=== PATIENT | female | born 1965 | race Caucasian/White ===

== ENCOUNTER → 2017-09-15 | Outpatient (REF) ==
[~2017-09-15] MED LIST: ALBU17IN2 INH; BABY81CH PO; BENI20TA11 PO; CALC1CAP31 PO; CRES20TA PO; DARV100T PO; DRIS50002 PO; DRISDOL PO; JANU25TA PO; KLOR10TA PO; KLOR1TAB77 PO; LASI20TA PO; LEVO50TA45 PO; LEVOXYL25 MCG PO; LIDO5DIS TD; LORA10TA2 PO; MICA80TA OR; MULTIVIT PO; NEXI20CA PO; PRIL20CA PO; SIMV40TA2 OR; SKEL800T5 PO; SPIR25TA2 OR; SPIR50TA2 PO; TORS100T PO; VERA240T11 PO; VIT D 2000 OR; VITA200C PO; VITAPRTA PO; ZOLO100T PO; ZYLO300T PO; [UNRECOGNIZED DRUG - OTHER] OP
--- NOTE | 2017-09-15 18:18 | REP ---
Clinical: Pain and disability. Technique: AP, lateral, bilateral oblique and sunrise views of the right knee. Findings: Severe tricompartmental osteoarthritic degenerative changes are appreciated. Findings include osteophytosis, subchondral sclerosis, joint space narrowing, calcified loose bodies, and mild medial subluxation of the femur in relation to the tibial plateau. No acute fracture dislocation. No definite effusion. Impression: Severe tricompartmental osteoarthritic degenerative changes. Signed by Adeel Mcguire MD 09/15/2017 03:09 P
== END ==
LOC: M SMT 13:33
PROVIDERS: ATTEND Internal Medicine
DX: Z02.9 Encounter for administrative examinations, unspecified (principal)

== ENCOUNTER 2018-07-08 12:25 | Emergency (ER) | payer OTHER ==
[2018-07-08] MEDS: NS 1,000 ML IV (13:31)
[2018-07-08 13:39] LABS: KETONE, URINE AUTO RFX NEGATIVE (NEGATIVE); LEUKOCYTE ESTERASE UR AUTO RFX NEGATIVE (NEGATIVE); NITRITE, URINE AUTO RFX NEGATIVE (NEGATIVE); RBC, URINE AUTO RFX 4 /HPF (0-3); SPECIFIC GRAVITY UR AUTO RFX 1.011 (1.002-1.035); SQUAM EPITHELIAL CELL UR AURFX 2 /HPF (0-6); WBC, URINE AUTO RFX 2 /HPF (0-3)
[2018-07-08 13:47] LABS: BASO # 0.1 10^3/uL (0.0-0.2); BASO % 0.4 % (0.0-1.0); EOS # 0.1 10^3/uL (0.0-0.50); EOS % 0.9 % (0.0-3.0); HEMATOCRIT 47.1 % (36.0-47.0); HEMOGLOBIN 16.2 g/dl (12.0-15.5); IMMATURE GRANULOCYTE % 0.4 % (0-3.0); LYMPH % 14.3 % (24.0-44.0); MEAN CORPUSCULAR HEMOGLOBIN 33.1 pg (27.0-33.0); MEAN CORPUSCULAR HGB CONC 34.4 g/dl (32.0-36.5); MEAN CORPUSCULAR VOLUME 96.3 fl (80.0-96.0); MONO # 0.9 10^3/uL (0.0-0.8); MONO % 6.2 % (0.0-5.0); NEUTROPHILS # 10.6 10^3/uL (1.8-7.7); NEUTROPHILS % 77.8 % (36.0-66.0); PLATELET COUNT, AUTOMATED 266 10^3/uL (150-450); RED BLOOD COUNT 4.89 10^6/uL (4.00-5.40); RED CELL DISTRIBUTION WIDTH 13.7 % (11.5-14.5); WHITE BLOOD COUNT 13.6 10^3/uL (4.0-10.0)
[2018-07-08 14:09] LABS: LACTIC ACID SEPSIS PROTOCOL 1.1 MMOL/L (0.4-2.0)
[2018-07-08 14:09] LABS: ALBUMIN 3.4 GM/DL (3.2-5.2); ALBUMIN/GLOBULIN RATIO 0.77 (1.00-1.93); ALKALINE PHOSPHATASE 106 U/L (45-117); ALT/SGPT 31 U/L (12-78); ANION GAP 11 MEQ/L (8-16); AST/SGOT 24 U/L (7-37); BILIRUBIN,DIRECT 0.1 MG/DL (0.0-0.2); BILIRUBIN,TOTAL 0.4 MG/DL (0.2-1.0); BLOOD UREA NITROGEN 24 MG/DL (7-18); CARBON DIOXIDE LEVEL 25 MEQ/L (21-32); CHLORIDE LEVEL 99 MEQ/L (98-107); CREATININE FOR GFR 1.88 MG/DL (0.55-1.30); GLUCOSE, FASTING 120 MG/DL (70-100); LIPASE 554 U/L (73-393); POTASSIUM SERUM 4.2 MEQ/L (3.5-5.1); SODIUM LEVEL 135 MEQ/L (136-145); TOTAL PROTEIN 7.8 GM/DL (6.4-8.2)
== END 2018-07-08 15:27 | disposition home or self-care (01) ==
LOC: M ED 12:25
DX: R53.1 Weakness (principal); N18.9 Chronic kidney disease, unspecified; I12.9 Hypertensive chronic kidney disease with stage 1 through stage 4 chronic kidney disease, or unspecified chronic kidney disease; E11.9 Type 2 diabetes mellitus without complications; H81.49 Vertigo of central origin, unspecified ear; F17.200 Nicotine dependence, unspecified, uncomplicated; Z88.0 Allergy status to penicillin; Z88.5 Allergy status to narcotic agent; Z88.1 Allergy status to other antibiotic agents; Z88.2 Allergy status to sulfonamides; Z91.018 Allergy to other foods; Z91.048 Other nonmedicinal substance allergy status; Z79.899 Other long term (current) drug therapy; Z79.82 Long term (current) use of aspirin
CPT/HCPCS: 71045

== ENCOUNTER 2018-07-18 08:22 | Emergency (ER) | payer OTHER ==
[2018-07-18 08:59] LABS: KETONE, URINE AUTO RFX NEGATIVE (NEGATIVE); NITRITE, URINE AUTO RFX NEGATIVE (NEGATIVE); RBC, URINE AUTO RFX TNTC /HPF (0-3); SPECIFIC GRAVITY UR AUTO RFX 1.013 (1.002-1.035); SQUAM EPITHELIAL CELL UR AURFX 0 /HPF (0-6)
[2018-07-18 09:21] LABS: LEUKOCYTE ESTERASE UR AUTO RFX 1+ (NEGATIVE); WBC, URINE AUTO RFX TNTC /HPF (0-3)
== END 2018-07-18 09:42 | disposition home or self-care (01) ==
LOC: M ED 08:22
DX: N30.01 Acute cystitis with hematuria (principal); I10 Essential (primary) hypertension; F17.210 Nicotine dependence, cigarettes, uncomplicated; Z88.1 Allergy status to other antibiotic agents; Z88.5 Allergy status to narcotic agent; Z88.2 Allergy status to sulfonamides; Z91.018 Allergy to other foods; Z91.048 Other nonmedicinal substance allergy status; Z79.899 Other long term (current) drug therapy; Z79.82 Long term (current) use of aspirin
CPT/HCPCS: 81001

== ENCOUNTER 2018-08-24 08:24 | Emergency (ER) | payer OTHER | END 2018-08-24 10:12 | disposition home or self-care (01) | LOC: M ED 08:24 | DX: M76.21 Iliac crest spur, right hip (principal); E11.9 Type 2 diabetes mellitus without complications; I12.9 Hypertensive chronic kidney disease with stage 1 through stage 4 chronic kidney disease, or unspecified chronic kidney disease; E78.5 Hyperlipidemia, unspecified; J44.9 Chronic obstructive pulmonary disease, unspecified; J45.909 Unspecified asthma, uncomplicated; K21.9 Gastro-esophageal reflux disease without esophagitis; E03.9 Hypothyroidism, unspecified; F32.9 Major depressive disorder, single episode, unspecified; N18.3 Chronic kidney disease, stage 3 (moderate); F17.200 Nicotine dependence, unspecified, uncomplicated; Z88.1 Allergy status to other antibiotic agents; Z88.5 Allergy status to narcotic agent; Z88.2 Allergy status to sulfonamides; Z91.048 Other nonmedicinal substance allergy status; Z91.018 Allergy to other foods; Z79.899 Other long term (current) drug therapy; Z79.82 Long term (current) use of aspirin | CPT/HCPCS: 73502 ==

== ENCOUNTER → 2018-12-12 | Outpatient (REF) | payer OTHER ==
[~2018-12-12] MED LIST changes: +BYDU1INJ; +CALC1CAP31; +CETI10TA; +CINA30TA; +DIFL150T PO; -DRIS50002 PO; +DRIS50003 PO; +GABA-1171; +LIDO1PAD; -LORA10TA2 PO; +LORA10TA3 PO; +MACR100C43 PO; +MAGN400T2; +MONT10TA2; +NORCOTAB PO; +OLOP0.1D; +OMEP20CA3; +PROAAER10; +SITA50TAB; -SPIR50TA2 PO; +SPIR50TA4 PO; +TIZA4CAP PO
[2018-12-12 13:45] LABS: URINE TOTAL PROTEIN 79.4 MG/DL (0-12)
[2018-12-15 13:18] LABS: UPEP INTERPRETATION NO M-SPIKE NOTED; URINE VOLUME RANDOM ML
[2018-12-16 00:09] LABS: ANCA-ATYPICAL <1:20 titer (Neg:<1:20); CYTOPLASMIC NEUTROP AB ANCA-C <1:20 titer (Neg:<1:20); PERINUCLEAR AB ANCA-P <1:20 titer (Neg:<1:20)
== END ==
LOC: M LAB REF 13:06
PROVIDERS: ATTEND Internal Medicine Nephrology
DX: R80.9 Proteinuria, unspecified (principal); N18.3 Chronic kidney disease, stage 3 (moderate)

== ENCOUNTER 2019-02-13 15:22 | Emergency (ER) | payer OTHER ==
[~2019-02-13] VITALS: Ht 154.9 cm; Wt 95.5 kg
[~2019-02-13 15:22] MED LIST changes: -CINA30TA; +CINA30TA4; -CRES20TA PO; +CRES20TA2 PO; +HYDR-3715 PO; -NORCOTAB PO
[2019-02-13] MEDS ORDERED: diazePAM 5 MG TAB PO ONE (18:15)
[2019-02-13] MEDS ORDERED: NORCO, ANEXSIA 5/325MG TABLET (HYDROcodone/ACETAMINOPHEN) PO ONE (18:15)
[2019-02-13] MEDS ORDERED: dexameTHASONE 20 MG/5 ML VIAL (J1100) IM ONE (18:15)
[2019-02-13] MEDS ORDERED: LIDOCAINE 5% (LIDODERM) PATCH TD ONE (18:15)
--- NOTE | 2019-02-13 19:34 | REP ---
LUMBOSACRAL SPINE WITH BENDING VIEWS: Seven views of the lumbosacral spine are performed with flexion and extension lateral views also obtained. There is no compression fracture. There is mild fixed anterior listhesis of L3 and L4 unchanged since prior CT of 07/08/2018. There is mild diffuse spurring. There is moderate disc space narrowing and subchondral sclerosis at all levels. There is diffuse sclerosis and spurring at the posterior facet joints. The posterior elements are intact. Large spurs are seen on the left bridging at L1 and L2. IMPRESSION: Degenerative changes as above. No compression fracture. Mild fixed anterior listhesis of L3 on L4 unchanged since 07/08/2018. Electronically Signed by Juni Art MD 02/13/2019 08:00 P
--- NOTE | 2019-02-13 19:35 | REP ---
SACROILIAC JOINTS: Multiple views of the sacroiliac joints are performed. No fracture or dislocation is seen. There is mild diffuse joint space narrowing and subchondral sclerosis bilaterally. IMPRESSION: Mild degenerative changes without fracture or dislocation. Electronically Signed by Juni Art MD 02/13/2019 08:02 P
[2019-02-13] MEDS ORDERED: MEDR4PAK PO (19:57)
[2019-02-13] MEDS ORDERED: VALI5TAB PO (19:57)
[2019-02-13 20:12] VITALS: BP 140/80
== END 2019-02-13 20:14 | disposition home or self-care (01) ==
LOC: M ED 15:22
DX: M51.36 Other intervertebral disc degeneration, lumbar region (principal); M53.3 Sacrococcygeal disorders, not elsewhere classified; M62.830 Muscle spasm of back; I10 Essential (primary) hypertension; E78.00 Pure hypercholesterolemia, unspecified; Z72.0 Tobacco use; Z79.82 Long term (current) use of aspirin; Z88.2 Allergy status to sulfonamides; Z88.0 Allergy status to penicillin; Z88.1 Allergy status to other antibiotic agents; Z88.8 Allergy status to other drugs, medicaments and biological substances; Z91.018 Allergy to other foods; Z91.89 Other specified personal risk factors, not elsewhere classified
CPT/HCPCS: 72114; 72202; 96372; 99283; J1100

== ENCOUNTER 2019-04-21 16:10 | Emergency (ER) | payer OTHER ==
[~2019-04-21] VITALS: Ht 154.9 cm; Wt 94.5 kg
[~2019-04-21 16:10] MED LIST changes: +MEDR4PAK PO; -OMEP20CA3; +OMEP20CA4; +VALI5TAB PO
--- NOTE | 2019-04-21 17:11 | REP ---
LEFT LOWER LEG: AP and lateral views of the left lower leg are performed. There is no acute fracture or dislocation. There is fairly severe degenerative change at the knee joint with severe medial joint space narrowing and subchondral sclerosis with diffuse moderate spurring. There is significant narrowing and spurring at the patellofemoral joint. There is a small effusion in the suprapatellar region. IMPRESSION: No acute fracture or dislocation. Degenerative changes of the knee. Electronically Signed by Juni Art MD 04/25/2019 05:41 P
[2019-04-21 19:59] VITALS: BP 144/99
== END 2019-04-21 20:02 | disposition home or self-care (01) ==
LOC: M ED 16:10
DX: M79.662 Pain in left lower leg (principal); M25.762 Osteophyte, left knee; E11.9 Type 2 diabetes mellitus without complications; I10 Essential (primary) hypertension; E78.5 Hyperlipidemia, unspecified; E03.9 Hypothyroidism, unspecified; J45.909 Unspecified asthma, uncomplicated; K21.9 Gastro-esophageal reflux disease without esophagitis; Z72.0 Tobacco use; Z79.82 Long term (current) use of aspirin; Z79.899 Other long term (current) drug therapy; Z88.2 Allergy status to sulfonamides; Z88.0 Allergy status to penicillin; Z88.1 Allergy status to other antibiotic agents; Z88.5 Allergy status to narcotic agent; Z91.89 Other specified personal risk factors, not elsewhere classified; Z91.018 Allergy to other foods

== ENCOUNTER → 2019-05-05 | Outpatient (CLI) | payer OTHER ==
[~2019-05-05] MED LIST changes: +ALLO100T PO; +ECOT81TA5 PO; +GASTROGRAFIN SOLUTION 30ML (Q9963) As Ordered ONE; +K-TA10TA PO; +OMEP1CAP73; -OMEP20CA4; +PRENMIS3 PO; +TORS20TA2 PO; +VERA24TASA PO
--- NOTE | 2019-05-05 16:57 | REP ---
CT abdomen pelvis with oral contrast only: 05/05/2019. Electronically Signed by Jhon Salazar MD 05/05/2019 04:49 P
--- NOTE | 2019-05-06 09:59 | REP ---
CT CHEST WITHOUT CONTRAST: 05/05/2019. COMPARISON: AP portable chest 07/08/2018. CLINICAL HISTORY: Elevated WBC, hypercalcemia, abnormal weight loss. FINDINGS: Noncontrast images with coronal and sagittal reconstructions provided. The lung cruran are well inflated. There is no pleural thickening, calcified pleural plaque, pleural-based mass, parenchymal mass, acute infiltrate, definite pulmonary nodule or atelectasis. There is no pneumothorax or pneumomediastinum. Heart is not enlarged. There is no pericardial thickening or effusion and no hiatal hernia. Some coronary calcifications are noted as well as a few calcifications at the aortic root, arch and without aneurysm. No pathologic sized mediastinal, hilar, axillary or supraclavicular adenopathy visible. The sternum, manubrium, medial clavicles, visualized portions of scapulae, humeral heads are without fracture and some mild degenerative changes at the shoulders. Visualized ribs without fracture or focal lesion. There are marginal osteophytes throughout the thoracic spine but no compression deformity or destructive lesion. In the upper abdomen that portion of liver and spleen included are without acute finding. Gallbladder shows some layering sludge but no some calcified stone or mass. Pancreas portion visualized is unremarkable. The adrenal glands show slight thickening of limbs that may reflect adrenal hyperplasia. No discrete nodule or mass. Upper pole of the left kidney slight lobulation that may reflect some old scarring. Right kidney upper pole unremarkable. Stomach with oral contrast from the abdomen CT, please see that report. IMPRESSION: 1. Lung curran are clear. The heart not enlarged and the mediastinum without mass, pathologic sized adenopathy or aortic aneurysm. 2. Bones show some degenerative changes throughout the thoracic spine without compression deformity, destructive lesion. Electronically Signed by Jhon Salazar MD 05/06/2019 10:13 A
== END ==
LOC: M RAD 13:24
PROVIDERS: ATTEND Nurse Practitioner Family
DX: D72.829 Elevated white blood cell count, unspecified (principal); E83.52 Hypercalcemia; R63.4 Abnormal weight loss
CPT/HCPCS: 71250; 74176; Q9963

== ENCOUNTER → 2019-08-01 | Outpatient (CLI) | payer OTHER ==
[~2019-08-01] MED LIST changes: -ALLO100T PO; -ECOT81TA5 PO; -GASTROGRAFIN SOLUTION 30ML (Q9963) As Ordered ONE; -K-TA10TA PO; -OMEP1CAP73; +OMEP20CA4; -PRENMIS3 PO; -TORS20TA2 PO; -VERA24TASA PO
--- NOTE | 2019-08-01 11:09 | REP ---
BILATERAL SCREENING DIGITAL MAMMOGRAM WITHOUT 3D TOMOSYNTHESIS: There are no palpable abnormalities or other breast complaints. The the patient states she had a clinical breast examination in November. The the patient states she performs self-breast examinations 12 times per year. The Tyrer-Cuzick Score is: 17.3% . Comparison is an outside study dated 05/31/2015. There are scattered areas of fibroglandular density. There is no dominant mass, micro calcific cluster or architectural distortion that would indicate malignancy. There are numerous benign calcifications, unchanged. There is no change from the prior study. Impression: BIRADS/ACR category 2 mammogram. Benign findings. Recommendation: Routine annual screening mammography. This mammogram was interpreted with the aid of a FDA approved computer-aided detection system. A. Negative mammogram reports should not delay biopsy if a dominant or clinically suspicious mass is present. B. Not all breast cancers are identified by mammography or tomosynthesis. C. Adenosis and dense breasts may obscure an underlying neoplasm. Patient letter M1. Electronically Signed by Juni Houser MD 08/01/2019 11:00 A
== END ==
LOC: M WHC 08:39
PROVIDERS: ATTEND Family Medicine
DX: Z12.31 Encounter for screening mammogram for malignant neoplasm of breast (principal)
CPT/HCPCS: 77067; G0463

== ENCOUNTER → 2019-12-04 | Outpatient (CLI) | payer OTHER ==
[~2019-12-04] MED LIST changes: +ALLO100T PO; +ECOT81TA5 PO; +K-TA10TA PO; -MONT10TA2; +MONT10TA4; +OMEP1CAP73; -OMEP20CA4; +PRENMIS3 PO; +TORS20TA2 PO; +VERA24TASA PO
--- NOTE | 2019-12-04 16:38 | REPVR ---
PROCEDURE INFORMATION: Exam: CT Head Without Contrast Exam date and time: 12/04/2019 4:21 PM Age: 54 years old Clinical indication: Dizziness; Additional info: HX of dizziness TECHNIQUE: Imaging protocol: Computed tomography of the head without contrast. Radiation optimization: All CT scans at this facility use at least one of these dose optimization techniques: automated exposure control; mA and/or kV adjustment per patient size (includes targeted exams where dose is matched to clinical indication); or iterative reconstruction. COMPARISON: CT Head without contrast 07/08/2018 1:35 PM FINDINGS: Brain: There is no acute intracranial hemorrhage or abnormal extra-axial fluid collection identified. There is no intracranial mass effect or shift of midline structures. The salamanca-white differentiation is preserved throughout. Ventricles: There is no sulcal or ventricular effacement. The basilar cisterns are open. No hydrocephalus. Bones/joints: No calvarial fracture or destructive osseous lesions are seen. Sinuses: Visualized sinuses are unremarkable. No fluid levels. Mastoid air cells: Visualized mastoid air cells are well aerated. IMPRESSION: No acute intracranial pathology identified by CT. Electronically signed by: Sarai Garcia On 12/04/2019 16:38:40 PM
== END ==
LOC: M RAD 15:57
PROVIDERS: ATTEND Internal Medicine Hematology & Oncology
DX: R42 Dizziness and giddiness (principal)

== ENCOUNTER → 2020-03-27 | Outpatient (CLI) | payer OTHER ==
[~2020-03-27] MED LIST changes: -BYDU1INJ; +BYDU1INJ IM; -CETI10TA; +CETI10TA PO; -CINA30TA4; +CINA30TA4 PO; -GABA-1171; +GABA-1171 PO; -LIDO1PAD; +LIDO1PAD TOP; -MAGN400T2; +MAGN400T2 PO; -MONT10TA4; +MONT10TA4 PO; -OMEP1CAP73; +OMEP1CAP73 PO; -SITA50TAB; +SITA50TAB PO
--- NOTE | 2020-03-27 12:57 | REP ---
Clinical: Follow up abnormal lung findings. Comparison: 05/15/2019. Technique: Axial noncontrast images from the thoracic inlet to the upper abdomen with coronal and sagittal re-formations. Findings: The bilateral lung curran are well-aerated and essentially clear. No consolidation, significant nodule, or mass. No pleural effusion. No pneumothorax. No adenopathy. Tracheobronchial tree is patent. Mediastinum demonstrates atherosclerotic changes to the thoracic aorta and coronary arteries without aortic aneurysm or cardiomegaly. No pericardial effusion. Musculoskeletal structures demonstrate age-related changes without acute abnormality. Impression: No acute mediastinal or pleuroparenchymal process appreciated. Electronically Signed by Adeel Mcguire MD 03/27/2020 12:49 P
== END ==
LOC: M RAD 12:05
PROVIDERS: ATTEND Physician Assistant
DX: R91.8 Other nonspecific abnormal finding of lung field (principal); I70.0 Atherosclerosis of aorta; I25.10 Atherosclerotic heart disease of native coronary artery without angina pectoris

== ENCOUNTER → 2020-05-06 | Outpatient (REF) | payer OTHER ==
[2020-06-19 16:30] LABS: FREE T4 1.04 NG/DL (0.76-1.46); THYROID STIMULATING HORMONE 1.59 uIU/ML (0.358-3.740)
== END ==
LOC: M LAB REF 12:54
PROVIDERS: ATTEND Nurse Practitioner Family
DX: E03.9 Hypothyroidism, unspecified (principal)

== ENCOUNTER → 2020-05-08 | Outpatient (REF) | payer OTHER ==
[2020-06-23 10:45] LABS: TOTAL PROTEIN 24 HOUR URINE 2494.2 MG/24HR (50-150); URINE TOTAL PROTEIN 90.7 MG/DL (0-12)
== END ==
LOC: M LAB REF 10:50
PROVIDERS: ATTEND Nurse Practitioner Family
DX: R80.9 Proteinuria, unspecified (principal)

== ENCOUNTER → 2020-05-19 | Outpatient (CLI) | payer OTHER ==
--- NOTE | 2020-06-20 10:31 | REP ---
LEFT HIP: 2-VIEWS HISTORY: Pain in the left hip. Injury in a fall down stairs the previous day. FINDINGS: AP and frog leg views of the left hip demonstrate smooth rounded femoral head and intact hip joint space. No fracture is seen. The visualized left hemipelvis is intact. Mild vascular calcification is noted. Periarticular soft tissues are unremarkable. IMPRESSION: No fracture seen. MTDD
--- NOTE | 2020-06-20 10:32 | REP ---
LEFT KNEE SERIES: 5-VIEWS HISTORY: Pain on day after a fall down stairs. FINDINGS: Five views of the left knee show severe three-compartment osteoarthritis of the knee with joint space narrowing in the medial and lateral tibial femoral compartments, as well as the patellofemoral compartment. No fracture is seen. There is fullness in the suprapatellar bursa indicative of a joint effusion, which is fairly large. There is evidence of a fabella posteriorly. There may also be an intraarticular loose body posteriorly on the lateral film. This is not an acute fracture fragment. These findings are unchanged from prior tib-fib series on the left dated 04/21/2019. IMPRESSION: Advanced three-compartment osteoarthritis. Large joint effusion. No fracture seen. Possible loose body. MTDD
--- NOTE | 2020-06-20 10:33 | REP ---
LEFT FOOT: 4-VIEWS HISTORY: Pain after a fall. FINDINGS: Four views of the left foot demonstrate overall normal mineralization. There is moderate mid-foot osteoarthritis spurring. Heel spurs are noted. No erosive change is seen. No fracture is noted. There is some soft tissue swelling about the fifth metatarsal. IMPRESSION: No acute fracture. Moderate mid-foot spurring. Heel spurs. MTDD
--- NOTE | 2020-06-20 10:33 | REP ---
LEFT ANKLE SERIES: 4-VIEWS HISTORY: Pain after a fall down stairs. FINDINGS: 4-views of the left ankle demonstrate vascular calcification. There are Achilles and plantar calcaneal spurring. There is tibiotalar osteoarthritic spurring and there is moderate mid-foot spurring. No fracture or subluxation is seen. IMPRESSION: Moderate osteoarthritis and heel spurring. Vascular calcification. No fracture or acute bony abnormality. MTDD
== END ==
LOC: M WUC 11:18
PROVIDERS: ATTEND Nurse Practitioner Family
DX: M25.552 Pain in left hip (principal); M17.12 Unilateral primary osteoarthritis, left knee; M25.572 Pain in left ankle and joints of left foot; M77.32 Calcaneal spur, left foot

== ENCOUNTER → 2020-05-27 | Outpatient (CLI) | payer OTHER ==
--- NOTE | 2020-06-24 07:52 | REP ---
RIGHT SCAPULA CLINICAL: Trauma. Fall. TECHNIQUE: AP and lateral views of the scapula. FINDINGS: Degenerative changes at the right shoulder include sclerosis to the glenoid and humeral head with joint space narrowing. Subtle bulky spurring along the inferior margin of the humeral head and possible inferior loose body suggested. There is no evidence for acute scapular fracture. IMPRESSION: Degenerative changes of the right shoulder. No obvious acute scapular fracture. If the patient remains symptomatic, consider CT or MRI for further investigation. KISHA
== END ==
LOC: M WUC 13:29
PROVIDERS: ATTEND Physician Assistant
DX: M19.011 Primary osteoarthritis, right shoulder (principal)

== ENCOUNTER → 2020-06-27 | Outpatient (CLI) | payer OTHER ==
[2020-06-27 16:30] LABS: C REACTIVE PROTEIN QUANTITATIV 0.35 MG/DL (0.00-0.30); RHEUMATOID FACTOR QUANT < 10.0 IU/ML (<15.0)
[2020-07-04 18:08] LABS: ANTINUCLEAR ANTIBODIES DIRECT Negative (Negative); HLA-B27 Positive (.)
== END ==
LOC: M WUC 11:17
PROVIDERS: ATTEND Physician Assistant
DX: M50.33 Other cervical disc degeneration, cervicothoracic region (principal)

== ENCOUNTER 2020-08-13 10:29 | Emergency (ER) | payer OTHER ==
[~2020-08-13] VITALS: Ht 154.9 cm; Wt 95.4 kg
[2020-08-13 11:37] LABS: BASO # 0.1 10^3/uL (0.0-0.2); BASO % 0.3 % (0.0-1.0); EOS # 0.2 10^3/uL (0.0-0.5); EOS % 1.5 % (0.0-3.0); HEMATOCRIT 43.7 % (36.0-47.0); HEMOGLOBIN 14.8 g/dl (12.0-15.5); LYMPH # 2.4 10^3/uL (1.5-5.0); LYMPH % 15.6 % (24.0-44.0); MEAN CORPUSCULAR HEMOGLOBIN 33.2 pg (27.0-33.0); MEAN CORPUSCULAR HGB CONC 33.9 g/dl (32.0-36.5); MONO % 6.6 % (0.0-5.0); NEUTROPHILS # 11.8 10^3/uL (1.5-8.5); NEUTROPHILS % 75.4 % (36.0-66.0); PLATELET COUNT, AUTOMATED 287 10^3/uL (150-450); RED BLOOD COUNT 4.46 10^6/uL (4.00-5.40); WHITE BLOOD COUNT 15.6 10^3/uL (4.0-10.0)
--- NOTE | 2020-08-13 12:18 | REP ---
INDICATION: LLQ pain, h/o diverticulitis, unable to get IV constrast COMPARISON: 05/05/2019. TECHNIQUE: CT Scan of the abdomen and pelvis was performed without intravenous contrast. Sagittal and coronal reconstruction images performed. FINDINGS: Lung bases: Unremarkable. Liver: Grossly unremarkable. Gallbladder: Unremarkable. Spleen: Grossly unremarkable.. Adrenals: There is stable adrenal gland thickening bilaterally. Pancreas: Grossly unremarkable.. Kidneys: No hydronephrosis or nephrolithiasis. Ureters demonstrate no dilatation or calculus. Small and large bowel: Grossly unremarkable.. Free fluid: None. Abdominal aorta: No aneurysm. Adenopathy: None. Appendix: Not inflamed. Osseous structures: There are degenerative changes of the spine without compression deformity. Pelvis: No mass. No bladder calculus seen. There has been a prior hysterectomy. IMPRESSION: No acute abnormalities identified. <Electronically signed by Juni Art > 08/13/20 [id number]
[2020-08-13 12:46] LABS: INR 1.02; PROTHROMBIN TIME 13.6 SECONDS (12.5-14.3)
[2020-08-13 12:47] LABS: PARTIAL THROMBOPLASTIN TIME 31.6 SECONDS (24.2-38.5)
[2020-08-13 13:25] LABS: ALBUMIN 3.4 GM/DL (3.2-5.2); BILIRUBIN,DIRECT 0.1 MG/DL (0.0-0.2); BILIRUBIN,TOTAL 0.4 MG/DL (0.2-1.0); CALCIUM LEVEL 9.5 MG/DL (8.5-10.1); CREATININE FOR GFR 1.79 MG/DL (0.55-1.30); GLOMERULAR FILTRATION RATE 31.5 (>51); POTASSIUM SERUM 3.9 MEQ/L (3.5-5.1); TOTAL PROTEIN 6.7 GM/DL (6.4-8.2)
[2020-08-13 14:00] VITALS: BP 158/102
== END 2020-08-13 14:02 | disposition home or self-care (01) ==
LOC: M ED 10:29
DX: R10.32 Left lower quadrant pain (principal); F41.9 Anxiety disorder, unspecified; D72.829 Elevated white blood cell count, unspecified; J44.9 Chronic obstructive pulmonary disease, unspecified; F32.9 Major depressive disorder, single episode, unspecified; K57.32 Diverticulitis of large intestine without perforation or abscess without bleeding; K21.9 Gastro-esophageal reflux disease without esophagitis; M10.9 Gout, unspecified; Z79.51 Long term (current) use of inhaled steroids; Z79.82 Long term (current) use of aspirin; Z79.899 Other long term (current) drug therapy; Z88.1 Allergy status to other antibiotic agents; N18.9 Chronic kidney disease, unspecified; Z91.018 Allergy to other foods; Z91.048 Other nonmedicinal substance allergy status; Z88.8 Allergy status to other drugs, medicaments and biological substances; Z88.6 Allergy status to analgesic agent

== ENCOUNTER → 2020-08-13 | Outpatient (CLI) | payer OTHER ==
[2020-08-13 10:08] LABS: INR 1.03; PROTHROMBIN TIME 13.7 SECONDS (12.5-14.3)
[2020-08-13 10:09] LABS: PARTIAL THROMBOPLASTIN TIME 35.1 SECONDS (24.2-38.5)
[2020-08-13 10:11] LABS: COLLAGEN EPINEPHRINE 247 SECONDS (74-162)
[2020-08-13 10:27] LABS: COLLAGEN ADP 91 SECONDS (56-103)
== END ==
LOC: M WUC 08:25
PROVIDERS: ATTEND Physician Assistant
DX: M50.320 Other cervical disc degeneration, mid-cervical region, unspecified level (principal)

== ENCOUNTER → 2020-10-07 | Outpatient (REF) | payer OTHER ==
[~2020-10-07] MED LIST changes: -MONT10TA4 PO; +MONT5TAB2 PO
== END ==
LOC: M SFHCRHEU 10:20
PROVIDERS: ATTEND Internal Medicine
DX: R70.0 Elevated erythrocyte sedimentation rate (principal)
CPT/HCPCS: 85652; 86140; G0463

== ENCOUNTER → 2020-11-07 | Outpatient (CLI) | payer OTHER ==
[~2020-11-07] MED LIST changes: +MONT10TA10 PO; -MONT5TAB2 PO
--- NOTE | 2020-11-07 11:29 | REP ---
INDICATION: DORSALGIA R/O SACROILIITIS. COMPARISON: Comparison radiographs February 13, 2019.. CT images from 13 August 2020 are also reviewed. TECHNIQUE: AP view of the pelvis, two views provided. FINDINGS: The bony pelvic ring is intact. There are sclerotic changes on either side of the inferior portion of each SI joint unchanged from the comparison CT study and radiographs. No erosive changes seen. Bony pelvic ring is intact. There is some tendon insertion site spurring on the iliac crests consistent with mild enthesopathy changes. Visualized bowel gas pattern is normal. Vascular calcification is seen. There are some degenerative changes in the lower lumbar spine. IMPRESSION: Bilateral SI joint sclerotic changes consistent with osteoarthritis. No evidence of ankylosis or erosive change. <Electronically signed by Scott Isaac > 11/07/20 [id number]
== END ==
LOC: M WUC 11:03
PROVIDERS: ATTEND Internal Medicine
DX: M54.9 Dorsalgia, unspecified (principal)

== ENCOUNTER → 2020-12-24 | Outpatient (CLI) | payer OTHER ==
--- NOTE | 2020-12-24 23:06 | REPVR ---
PROCEDURE INFORMATION: Exam: MR Pelvis Without Contrast, Sacrum Exam date and time: 12/24/2020 7:13 PM Age: 55 years old Clinical indication: Pain; Abnormal sacroiliac joint TECHNIQUE: Imaging protocol: Magnetic resonance images of the pelvis without intravenous contrast. Exam focused on the sacrum. COMPARISON: CT ABD PELVIS W/O CONTRAST 08/13/2020 11:51 AM FINDINGS: Reproductive: There has been a hysterectomy. Bones/joints: There is bone marrow edema in the 1st coccygeal segment. There are degenerative changes in the lower lumbar spine. At the L4-L5 level, there is a 6 mm grade 1 anterolisthesis of L4 on L5 with uncovering of the disc posteriorly, severe osteoarthritis of the facet joints, moderate loss of disc height, mild spinal canal stenosis, moderate right neural foraminal stenosis, and mild left neural foraminal stenosis. At the L5-S1 level, there is moderate loss of disc height, vacuum phenomenon in the intervertebral disc, a broad-based posterior protrusion, and moderate osteoarthritis of the facet joints, resulting in severe bilateral neural foraminal stenosis. There is bone marrow edema on both sides of the left sacroiliac joint, which is compatible with left sacroiliitis. There is chronic sclerosis on both sides of the sacroiliac joints, which can also be seen in the CT abdomen and pelvis on 08/13/2020. Soft tissues: There is inhomogeneous fat saturation in the left psoas muscle in the axial T2 with fat saturation series. No soft tissue fluid collection is noted. IMPRESSION: 1. Left sacroiliitis. 2. Bone marrow edema in the 1st coccygeal segment, which may be stress related or posttraumatic in nature. 3. L4-L5: Mild spinal canal stenosis, moderate right foraminal stenosis, and mild left neural foraminal stenosis. 4. L5-S1: Severe bilateral neural foraminal stenosis. Electronically signed by: Taj Shah On 12/24/2020 23:06:00 PM
== END ==
LOC: M RAD 17:47
PROVIDERS: ATTEND Internal Medicine
DX: M54.9 Dorsalgia, unspecified (principal)

== ENCOUNTER → 2021-04-16 | Outpatient (CLI) | payer OTHER | LOC: M WUC 10:16 | PROVIDERS: ATTEND Internal Medicine | DX: M46.80 Other specified inflammatory spondylopathies, site unspecified (principal) ==

== ENCOUNTER 2021-05-02 17:09 | Inpatient (IN) | payer OTHER ==
[~2021-05-02] VITALS: Ht 154.9 cm; Wt 52.7 kg
[~2021-05-02 17:09] MED LIST changes: -OLOP0.1D; +OLOP0.1D OU
[2021-05-02] MEDS ORDERED: BYDUINJ (18:49)
[2021-05-02] MEDS ORDERED: CARV3.12 PO (18:49)
[2021-05-02] MEDS ORDERED: MORPHINE 4 MG/ML 1ML VIAL/SYRINGE (J2270) IV ONE ×2 (18:50→21:10)
[2021-05-02 19:18] LABS: BASO # 0.1 10^3/uL (0.0-0.2); BASO % 0.2 % (0.0-1.0); HEMATOCRIT 45.8 % (36.0-47.0); HEMOGLOBIN 15.4 g/dl (12.0-15.5); LYMPH # 1.6 10^3/uL (1.5-5.0); LYMPH % 6.7 % (24.0-44.0); MEAN CORPUSCULAR HEMOGLOBIN 31.7 pg (27.0-33.0); MEAN CORPUSCULAR HGB CONC 33.6 g/dl (32.0-36.5); MEAN CORPUSCULAR VOLUME 94.2 fl (80.0-96.0); MONO # 1.6 10^3/uL (0.0-0.8); MONO % 6.6 % (2.0-8.0); NEUTROPHILS # 20.1 10^3/uL (1.5-8.5); NEUTROPHILS % 85.6 % (36.0-66.0); PLATELET COUNT, AUTOMATED 305 10^3/uL (150-450); RED BLOOD COUNT 4.86 10^6/uL (4.00-5.40)
[2021-05-02 19:20] LABS: WHITE BLOOD COUNT 23.4 10^3/uL (4.0-10.0)
--- NOTE | 2021-05-02 19:30 | REP ---
INDICATION: right knee pain COMPARISON: 09/15/2017. TECHNIQUE: There are 6 views. FINDINGS: Diffuse demineralization and advanced tricompartment osteoarthritis are again noted. There is significant joint space narrowing with almost complete loss of the articular cartilage in the medial, lateral and patellofemoral compartments and medial subluxation of the femoral condyles on the tibial plateau. All of these findings have progressed from the prior study. Additionally there is a large suprapatellar effusion on the study today, not present previously IMPRESSION: Advanced tricompartment osteoarthritis that has progressed. Additionally there is a large suprapatellar effusion today, not present previously. <Electronically signed by Juni Houser > 05/02/21 [id number]
[2021-05-02 19:34] LABS: C REACTIVE PROTEIN QUANTITATIV 4.8 MG/DL (0.00-0.30); CALCIUM LEVEL 8.9 MG/DL (8.5-10.1); CREATININE FOR GFR 2.02 MG/DL (0.55-1.30); GLOMERULAR FILTRATION RATE 27.3 (>51); POTASSIUM SERUM 4.7 MEQ/L (3.5-5.1)
[2021-05-02 19:48] LABS: ERYTHROCYTE SEDIMENTATION RATE 61 mm/hr (0-30)
--- NOTE | 2021-05-02 19:52 | REP ---
INDICATION: acute right posterior knee pain and swelling. COMPARISON: None. TECHNIQUE: Duplex Doppler ultrasound of the right lower extremity deep veins. FINDINGS: The right lower extremity deep veins demonstrate normal compression, normal Doppler color flow and normal Doppler waveforms with respiration augmentation at multiple levels from the popliteal vein to the common femoral vein. In addition the proximal posterior tibial and peroneal veins demonstrate normal compression without evidence of thrombus. In addition in the left common femoral vein demonstrates normal Doppler color flow and normal phasicity with DrCarey logan with no evidence of thrombus. IMPRESSION: No evidence of right lower extremity deep vein thrombus. <Electronically signed by Juni Houser > 05/02/211947
[2021-05-03] VITALS (8 sets, daily range): BP systolic 138–168; BP diastolic 86–98
[2021-05-03] MEDS ORDERED: MORPHINE 4 MG/ML 1ML VIAL/SYRINGE (J2270) IV ONE (00:05)
[2021-05-03 00:14] LABS: CRYSTALS, BODY FLUID NONE SEEN (NONE SEEN); SOURCE, BODY FLUID CRYSTALS RT KNEE
[2021-05-03 00:19] LABS: SOURCE, BODY FLUID GLUCOSE RT KNEE; SOURCE, BODY FLUID URIC ACID RT KNEE; URIC ACID, BODY FLUID 5.1 MG/DL (NOT ESTABLISHED)
[2021-05-03 01:21] LABS: SOURCE, BODY FLUID RT KNEE; SYNOVIAL FLUID COLOR RED (COLORLESS)
[2021-05-03] MEDS ORDERED: ALLO300T2 PA (01:48)
[2021-05-03] MEDS ORDERED: GABA-283 PO (01:48)
[2021-05-03] MEDS ORDERED: BYDU2INJ7 SC (01:50)
[2021-05-03] MEDS ORDERED: SPIR-10 PO (02:03)
[2021-05-03] MEDS ORDERED: MOM 30ML SUSPENSION UDC PO PRN (02:10)
[2021-05-03] MEDS ORDERED: VANCOMYCIN HCL 1,000 MG, VIAL MATE ADAPTER 1 EACH in NS 250 ML IV SCH (02:10)
[2021-05-03] MEDS ORDERED: ACETAMINOPHEN TAB 650MG DOSE (2X325MG) PO PRN (02:10)
[2021-05-03] MEDS: D5W/0.9% SODIUM CHLORIDE 1,000 ML IV SCH ×2 (02:10→15:38)
[2021-05-03] MEDS ORDERED: MAALOX 30 ML SUSP *UDC PO PRN (02:10)
[2021-05-03] MEDS ORDERED: HOME MED LIST COMPLETE! XX SCH (02:30)
[2021-05-03] MEDS: DOCUSATE SODIUM 100MG CAPSULE PO SCH ×3 (02:34→20:49)
[2021-05-03] MEDS ORDERED: OLOPATADINE 0.1% OPHTH SOL 5ML(PATANOL) OU PRN (03:15)
[2021-05-03] MEDS: HumaLOG INSULIN (NovoLOG) PER UNIT SC SCH ×4 (03:15→18:22)
[2021-05-03] MEDS ORDERED: LIDOCAINE 5% (LIDODERM) PATCH TOP PRN (03:15)
[2021-05-03] MEDS ORDERED: DEXTROSE 50% 50 ML SYRINGE IV PRN (03:15)
[2021-05-03] MEDS ORDERED: GLUCOSE 4GM CHEW TABLET PO PRN (03:15)
[2021-05-03] MEDS ORDERED: GLUCAGON INJ 1MG VIAL SC PRN (03:15)
[2021-05-03 03:29] LABS: RSV AMPLIFICATION NEGATIVE (NEGATIVE)
[2021-05-03] MEDS ORDERED: PERCOCET 5MG/325MG TAB PO PRN (03:35)
--- NOTE | 2021-05-03 03:54 | HPEPDOC ---
[facility] Medical History & Physical Date of Admission May 03, 2021 Date of Service: May 03, 2021 Attending Physician: KYLE GAMBLE MD History and Physical CHIEF COMPLAINT: [55 y/o female c/o right knee pain, swelling, redness x2 days] HISTORY OF PRESENT ILLNESS: [This is a 55 y/o female with a pmh of htn, hld, copd, HLA-B27 mutation, endometriosis, dm2, hypothyroidism, gout, ckd4 who presents to our ED on 05/02 with a cc of acute onset pain, swelling and redness of her right knee that began 2 days ago. Patient describes her pain as severe in nature. Patient states that she is still able to bend her knee however it is excruciating to do so. Patient states that she has experienced joint swelling in the past, but never to this degree. Patient states that her pain has gotten severe to the point that she is now nauseated and vomiting. Patient states that she was not able to eat at all yesterday d/t her pain. Patient denies recent injury to the knee, however has a history of severe arthritis to this knee. Patient, at the time of my exam, denies fevers, chills, cough, sob, chest pain, abd pain, paresthesias, dysuria. Joint tap performed in the ED shows purulent joint fluid highly suspicious for septic arthritis. ] PAST MEDICAL HISTORY: 1. [See HPI PAST SURGICAL HISTORY: 1. [Cataract removal with lens implants]. 2. [Hysterectomy]. 3. [ x2]. SOCIAL HISTORY: Tobacco use:[Smoker] ETOH: [Denies] Illicit drug use: [Denies] FAMILY HISTORY: Reviewed - none pertinent ALLERGIES: Please see below. REVIEW OF SYSTEMS: CONSTITUTIONAL: [Denies fevers, chills]. HEENT: [Denies uri type sx]. CARDIOVASCULAR: [Denies chest pain, palpitations]. RESPIRATORY: [Denies cough, sob]. GASTROINTESTINAL: [See HPI]. GENITOURINARY: [Denies dysuria]. SKIN: [See HPI]. MUSCULOSKELETAL: [See HPI]. NEUROLOGICAL: [Denies syncope, paresthesias]. ENDOCRINE: [Hx of DM]. HEMATOLOGIC/LYMPHATIC: [Denies hx of clotting]. HOME MEDICATIONS: Please see below. PHYSICAL EXAMINATION: VITAL SIGNS: Please see below. GENERAL APPEARANCE: [This is a 55 y/o female who appears older than her stated age. She is seated in a chair and appears uncomfortable. She is not in any acute distress.]. HEENT: [No mass or lesion. EOMI. No scleral icterus. Nares patent. Oral mucosa moist.]. CARDIOVASCULAR: [regular rate, rhythm. No murmurs, rubs, gallops]. LUNGS: [Good air flow b/l. no wheezing, rales, rhonchi]. ABDOMEN: [Soft, nontender]. MUSCULOSKELETAL: [The right knee is severely edematous in the pre-patellar region. The entire area is red and very tender. ROM is not assessed d/t pain]. EXTREMITIES: [No pedal edema appreciated. Pulses intact.]. NEUROLOGICAL: [Speech clear. A+Ox3. No focal deficits.]. PSYCHIATRIC: [Mood and affect appear appropriate]. LABORATORY DATA: See below. IMAGING: [Knee XR: FINDINGS: Diffuse demineralization and advanced tricompartment osteoarthritis are again noted. There is significant joint space narrowing with almost complete loss of the articular cartilage in the medial, lateral and patellofemoral compartments and medial subluxation of the femoral condyles on the tibial plateau. All of these findings have progressed from the prior study. Additionally there is a large suprapatellar effusion on the study today, not present previously IMPRESSION: Advanced tricompartment osteoarthritis that has progressed. Additionally there is a large suprapatellar effusion today, not present previously. Vascular US: FINDINGS: The right lower extremity deep veins demonstrate normal compression, normal Doppler color flow and normal Doppler waveforms with respiration augmentation at multiple levels from the popliteal vein to the common femoral vein. In addition the proximal posterior tibial and peroneal veins demonstrate normal compression without evidence of thrombus. In addition in the left common femoral vein demonstrates normal Doppler color flow and normal phasicity with Dr. Phoenix logan with no evidence of thrombus. IMPRESSION: No evidence of right lower extremity deep vein thrombus.] MICROBIOLOGY: Please see below. ASSESSMENT: [This is a 55 y/o female with a pmh of htn, hld, copd, HLA-B27 mutat ion, endometriosis, dm2, hypothyroidism, gout, ckd4 who presents to our ED on 05/02 with a cc of acute onset pain, swelling and redness of her right knee that began 2 days ago. Joint tap performed in the ED shows purulent joint fluid highly suspicious for septic arthritis. Patient is very concerned about her kidney function heading into surgery. Patient tells me that she was told that surgical intervention with her current level of kidney disease would result in her needing dialysis, which patient does not want. I explained to patient that she needs a washout of the joint as antibiotics alone are not sufficient therapy for a septic joint. Patient understands this but is very upset and tearful at the idea of anesthesia sending her into end stage renal disease]. . PLAN: 1. [Septic Joint - More likely bacterial infection. Less likely Moy's syndrome as patient does carry HLA-B27 gene mutation - Gout has been ruled out as there are no crystals in fluid aspiration - Orthopedics consulted for washout of joint. Assistance is greatly appreciated. - Begin vancomycin for empiric coverage of septic joint - Synovial fluid culture has been sent - Will keep npo for procedure and give ivf in the mean time - Zofran for nausea - percocet for pain - admit to med surg for treatment 2. DM - sliding scale coverage - hypoglycemic protocol - continue gabapentin 3. CKD4 - Patient's cr at baseline 4. Asthma - continue montelukast, cetirizine 5. HLD - continue rosuvastatin 6. GERD - continue omeprazole 7. Depression/anxiety - continue sertraline 8. Gout - continue allopurinol 9. HTN - continue carvedilol, torsemide, spironolactone DVT prophylaxis - mechanical for now d/t procedure]. Vital Signs Vital Signs Date Time Temp Pulse Resp B/P (MAP) Pulse Ox O2 Delivery O2 Flow Rate FiO2 05/03/21 03:13 97.9 88 17 153/85 (107) 95 Room Air Laboratory Data Labs 24H Laboratory Tests 2 05/02/21 18:48: Immature Granulocyte % (Auto) 0.9, Neutrophils (%) (Auto) 85.6H, Lymphocytes (%) (Auto) 6.7L, Monocytes (%) (Auto) 6.6, Eosinophils (%) (Auto) 0.0, Basophils (%) (Auto) 0.2, Neutrophils # (Auto) 20.1H, Lymphocytes # (Auto) 1.6, Monocytes # (Auto) 1.6H, Eosinophils # (Auto) 0.0, Basophils # (Auto) 0.1, Nucleated Red Blood Cells % (auto) 0.0, Erythrocyte Sedimentation Rate 61H, Anion Gap 8, Glomerular Filtration Rate 27.3L, Calcium Level 8.9, C-Reactive Protein, Quantitative 4.80H 05/02/21 23:40: Body Fluid WBC (Auto) 575270H, Body Fluid RBC (Auto) 100, Body Fluid Mononuclear Cells % Auto 3.2H, Fluid Polymorphonuclear Cell % Auto 96.8H, Body Fluid Crystals NONE SEEN, Body Fluid Crystal Source RT KNEE, Body Fluid Glucose Source RT KNEE, Body Fluid Glucose 4, Body Fluid Uric Acid 5.1, Body Fluid Uric Acid Source RT KNEE, Synovial Fluid Source RT KNEE, Synovial Fluid Color RED, Synovial Fluid Appearance TURBID 05/03/21 02:43: Coronavirus (COVID-19)(PCR) NEGATIVE, Influenza Type A (RT-PCR) NEGATIVE, Influenza Type B (RT-PCR) NEGATIVE, Respiratory Syncytial Virus (PCR) NEGATIVE CBC/BMP Laboratory Tests 05/02/21 18:48 Microbiology Microbiology 05/02/21 Gram Stain - Final, Resulted 05/02/21 Body Fluid Culture, Resulted Pending Home Medications Scheduled Aspirin (Ecotrin) 81 Mg Tablet.dr, 81 MG PO DAILY Carvedilol (Carvedilol) 3.125 Mg Tablet, 3.125 MG PO BID Cetirizine HCl (Cetirizine HCl) 10 Mg Tab, 10 MG PO DAILY Cinacalcet (Sensipar) 30 Mg Tab, 30 MG PO QWEEK WEDNESDAY Exenatide Microspheres (Bydureon Bcise) 2 Mg/0.85 Ml Auto.injct, 2 MG SC Q7D WEDNESDAY Gabapentin (Gabapentin) 100 Mg Cap, 100 MG PO BID TAKES WITH 400MG TO EQUAL 500MG Gabapentin (Gabapentin) 400 Mg Capsule, 400 MG PO BID TAKES WITH 100MG TO EQUAL 500MG Levothyroxine Sodium (Levoxyl) 50 Mcg Tab, 50 MCG PO DAILY Magnesium Oxide (Magnesium Oxide) 400 Mg Tab, 400 MG PO DAILY Montelukast Sodium (Montelukast Sodium) 10 Mg Tab, 10 MG PO DAILY Omeprazole (Omeprazole) 20 Mg Cap, 20 MG PO BID Potassium Chloride (K-Tab ER) 10 Meq Tablet.er, 20 MEQ PO BID Rosuvastatin Calcium (Crestor) 20 Mg Tab, 20 MG PO DAILY Sertraline Hcl (Zoloft) 100 Mg Tab, 150 MG PO DAILY Sitagliptin (Januvia) 50 Mg Tab, 50 MG PO DAILY Spironolactone (Spironolactone) 25 Mg Tablet, 75 MG PO BID Torsemide (Torsemide) 20 Mg Tablet, 60 MG PO BID allopurinoL (allopurinoL) 300 Mg Tablet, 300 MG PA DAILY Scheduled PRN Lidocaine (Lidocaine) 5 % Pad, 1 PATCH TOP DAILY PRN for PAIN APPLY TO BACK,HIP AND KNEES Olopatadine HCl (Olopatadine HCl) 0.1 % Chris, 1 DROP OU ASDIRECTED PRN for ITCHING EYES Allergies Coded Allergies: amoxicillin (Verified Allergy, Severe, THROAT CLOSING, 02/13/19) FROM AUGMENTIN clavulanic acid (Verified Allergy, Severe, THROAT CLOSING, 02/13/19) Sulfa (Sulfonamide Antibiotics) (Verified Allergy, Intermediate, HIVES, 02/13/19) azithromycin (Verified Allergy, Intermediate, HIVES, 02/13/19) cefuroxime (Verified Allergy, Intermediate, HIVES, 02/13/19) hydromorphone (Verified Allergy, Intermediate, HIVES, 02/13/19) FROM DILAUDID moxifloxacin (Verified Allergy, Intermediate, HIVES, 02/13/19) onion (Verified Allergy, Intermediate, VOMITING, 02/13/19) TAPE (Unverified Allergy, Unknown, 08/09/14) BANDAIDS sulfamethoxazole (Verified Allergy, Unknown, 04/12/20) trimethoprim (Verified Allergy, Unknown, 04/12/20) A-FIB/CHADSVASC A-FIB History Current/History of A-Fib/PAF?: No FLORIDALMA DANIEL May 03, 2021 03:54
[2021-05-03] MEDS ORDERED: VANCOMYCIN HCL 1,000 MG, VIAL MATE ADAPTER 1 EACH in NS 250 ML IV ONE (04:00)
[2021-05-03] MEDS: ONDANSETRON 4MG/2ML VIAL IV PRN ×3 (04:11→14:39)
[2021-05-03] MEDS ORDERED: VANCOMYCIN HCL 750 MG, VIAL MATE ADAPTER 1 EACH in NS 250 ML IV ONE (05:00)
[2021-05-03] MEDS: LEVOTHYROXINE 50MCG TABLET (0.05MG) PO SCH (06:15)
[2021-05-03 08:45] LABS: HEMOGLOBIN 14.1 g/dl (12.0-15.5); MEAN CORPUSCULAR HEMOGLOBIN 31.2 pg (27.0-33.0); MEAN CORPUSCULAR HGB CONC 32.8 g/dl (32.0-36.5); MEAN CORPUSCULAR VOLUME 95.1 fl (80.0-96.0); PLATELET COUNT, AUTOMATED 251 10^3/uL (150-450); RED BLOOD COUNT 4.52 10^6/uL (4.00-5.40); WHITE BLOOD COUNT 16.7 10^3/uL (4.0-10.0)
[2021-05-03] MEDS: MONTELUKAST 10 MG TAB PO SCH (09:00)
[2021-05-03] MEDS: OMEPRAZOLE 20 MG CAP PO SCH ×2 (09:00→20:48)
[2021-05-03] MEDS: SERTRALINE HCL 50 MG TAB PO SCH (09:00)
[2021-05-03] MEDS: allopurinoL 300 MG TAB PO SCH (09:00)
[2021-05-03] MEDS: TORSEMIDE 20 MG TAB PO SCH ×2 (09:00→20:47)
[2021-05-03] MEDS: GABAPENTIN 400MG CAP PO SCH ×2 (09:00→20:49)
[2021-05-03] MEDS: MAGNESIUM OXIDE 400MG TAB (MAG-OX) PO SCH (09:00)
[2021-05-03] MEDS: POTASSIUM CHLORIDE 10 MEQ SR TABLET PO SCH ×2 (09:00→20:49)
[2021-05-03] MEDS: ASPIRIN 81MG ENTERIC TABLET PO SCH (09:00)
[2021-05-03] MEDS: GABAPENTIN 100 MG CAP PO SCH ×2 (09:00→20:48)
[2021-05-03] MEDS: ROSUVASTATIN 10 MG TAB (CRESTOR) PO SCH (09:00)
[2021-05-03] MEDS: CETIRIZINE (ZyrTEC) 10 MG TAB PO SCH (09:00)
[2021-05-03 09:08] LABS: CREATININE FOR GFR 1.88 MG/DL (0.55-1.30); GLOMERULAR FILTRATION RATE 29.7 (>51); POTASSIUM SERUM 4.3 MEQ/L (3.5-5.1)
[2021-05-03] MEDS: MORPHINE 2 MG/ML 1ML VIAL (J2270) IV PRN ×3 (09:11→20:47)
[2021-05-03] MEDS: CARVedilol 3.125 MG TAB PO SCH ×2 (10:16→20:48)
[2021-05-03] MEDS: SPIRONOLACTONE 25 MG TAB PO SCH ×2 (10:51→20:48)
[2021-05-03] MEDS ORDERED: LIDOCAINE 2% 100MG/5ML SDV (FOR ANES.) As Ordered ONE (11:52)
[2021-05-03] MEDS ORDERED: propofoL 200 MG/20 ML VIAL As Ordered ONE (11:52)
[2021-05-03] MEDS ORDERED: fentaNYL 100 MCG/2 ML INJECTION (J3010) As Ordered ONE ×2 (11:53→12:54)
[2021-05-03] MEDS ORDERED: MIDAZOLAM INJ 2MG/2ML VIAL (J2250 PER 1MG) As Ordered ONE (11:53)
[2021-05-03] MEDS ORDERED: BUPIVACAINE HCL 0.25% 10ML VIAL As Ordered ONE (12:26)
--- NOTE | 2021-05-03 12:35 | CR ---
CONSULTATION DATE: 05/03/2021 TIME: 8 a.m. CONSULTING PHYSICIAN: DERICK MERIDA MD HISTORY OF PRESENT ILLNESS: This is a 55-year-old female with right septic knee. Patient complained of a three day history of right knee pain which is at this point limiting her ability to bear weight. The patient had a right knee effusion and was admitted to [facility] Emergency Department for further evaluation and treatment. The patient has a past medical history of hypertension, hyperlipidemia, Chronic obstructive pulmonary disease, HLA-B27 mutation, endometriosis, diabetes Type 2, hypothyroidism, gout, chronic kidney disease Stage IV, as well as tricompartmental osteoarthritis of the right knee. She presented to the [facility] Emergency Department on 02 May 2021 with erythema to the right knee of two days. The pain has gotten worse over the last three days and she is feeling nauseated and vomiting. The patient denies recent trauma to the knee, however has a history of aforementioned arthritis. The knee was aspirated in the joint yielding 112,000 white blood cells without crystals and gram stain that appeared to be positive for bacterial seeding. PAST MEDICAL HISTORY: Please see internal medicine notes and as described above. PAST SURGICAL HISTORY: 1. Cataract removal with lens implants. 2. Hysterectomy. 3. x2. SOCIAL HISTORY: Tobacco use, chronic smoker. Alcohol use: Denies. Illicit drug activity: Denies. FAMILY HISTORY: Not pertinent. ALLERGIES: Please see internal medicine note. REVIEW OF SYSTEMS: A 14 point review of systems was negative unless as otherwise described in the HPI above. PHYSICAL EXAMINATION: Alert and oriented to person, time and place. Right knee: The patient had an obvious effusion about the right knee and a significant pain to axial load weightbearing. The knee felt warm relative to the contralateral knee. She was otherwise neurovascularly intact to the right lower extremity. She had a 5/5 motor strength to the EHL, FHL, tibialis anterior, gastrocnemius and peroneal musculature. Sensation intact to light touch to the deep and superficial peroneal, sural, saphenous and tibial nerve distributions. She had 2+ dorsalis pedis and posterior tibial arterial pulse. Brisk capillary refill to the digits of her right foot. RADIOGRAPHS: She had an obvious valgus deformity about the right knee with significant tricompartmental osteoarthritis, subluxation of the femoral condyles relative to the tibial plateau. LABORATORY FINDINGS: White blood cell count of 16.7 today, synovial aspiration was significant for 112,000 white blood cell count, no crystals were appreciated. Gram stain was positive for cocci in pairs and clusters and cultures. Aerobic and anaerobic are pending. IMPRESSION: This is a 55-year-old female with a right septic knee with complicated past medical history with significant comorbidities. PLAN: At this point in time, given the patient's clinical presentation, aspiration, synovial joint findings and overall presentation, is a candidate for right knee irrigation and debridement today. The patient will undergo an open irrigation and debridement, synovial removal for the aforementioned diagnosis. She was made NPO at midnight and COVID tested negative. Please see operative report for further plan.
[2021-05-03] MEDS ORDERED: ONDANSETRON 4MG/2ML VIAL As Ordered ONE (12:47)
[2021-05-03] MEDS ORDERED: METOCLOPRAMIDE INJ 10MG/2ML VIAL (J2765 PER 1) As Ordered ONE (12:47)
[2021-05-03] MEDS ORDERED: ACETAMINOPHEN 1000MG 100ML IV BTL (OFIRMEV) (J0131 PER 10MG) As Ordered ONE (12:55)
[2021-05-03] MEDS ORDERED: oxyCODONE 5MG TAB PO PRN (14:00)
[2021-05-03] MEDS ORDERED: ONDANSETRON 4MG/2ML VIAL IV PRN (14:00)
[2021-05-03] MEDS ORDERED: fentaNYL 100 MCG/2 ML INJECTION (J3010) IV PRN (14:00)
--- NOTE | 2021-05-03 14:53 | RO ---
OPERATIVE NOTE DATE OF OPERATION: 05/03/2021 TIME: 12:30 p.m. PREOPERATIVE DIAGNOSIS: Right septic knee. POSTOPERATIVE DIAGNOSIS: Right septic knee. NAME OF OPERATION: Right knee open irrigation, debridement and synovectomy. SURGEON: Brandon Acuna MD PLAN MANAGER: None. FINDINGS: The patient had approximately 30 mL of purulent synovial fluid and inflamed synovium. INDICATIONS: This was a 55-year-old female with right septic knee. The patient complained of three day history of right knee pain which at this point is limiting her ability to bear weight. The patient had a right knee effusion and was admitted to [facility] emergency department for further evaluation and treatment and the patient has a past medical history of hypertension, hyperlipidemia and chronic obstructive pulmonary disease, HLA-B27 mutation, endometriosis, diabetes type 2, hypothyroidism, gout, chronic kidney disease stage 4 as well as tricompartmental osteoarthritis of the right knee. She was indicated for right knee open irrigation and debridement for a right septic knee and drain placement. ANESTHESIA: GETA. TOURNIQUET TIME: 48 minutes. ESTIMATED BLOOD LOSS: 30 mL. IV FLUIDS: Please see anesthesia report. IV ANTIBIOTICS: Please see anesthesia report. IMPLANTS: None. SPECIMENS: Right knee synovium. CULTURES: Aerobic and anaerobic. DESCRIPTION OF PROCEDURE: The patient was met in the preoperative holding area where the patient's operative extremity was signed, the patient's consent was confirmed to be correct, and the patient's identity was confirmed to be correct. The patient was then transported to the operating theater where she was placed supine position on a regular surgical flat-top bed. A safety strap secured the patient to the bed. All bony prominences were well padded. The contralateral had lower extremity had SCD placed. A timeout was called which confirmed the correct patient, correct operative extremity and correct consent. All staff were in agreement. The patient was then draped in the usual sterile fashion. We began the procedure by marking out the skin incisions which was a straight anterior incision over the patient's right knee centered over the patella. The right lower extremity underwent gravity exsanguination before inflating to 250 mmHg. I incised the skin sharply overlying the patella with an approximately 4-inch incision. After incising the skin sharply, I then made skin flaps in order to elevate the skin from the patient's right knee capsule. After performing the skin flaps, I then used a 10 blade scalpel in order to make my medial parapatellar arthrotomy measuring approximately 3 inches in length. After making the medial parapatellar arthrotomy, we were met with approximately 30 mL of synovial fluid. This was then cultured with aerobic and anaerobic swabs. I then performed a suprapatellar bursectomy using electrocautery which was then sent for specimen analysis. At this point in time, I removed all the suprapatellar synovium. I debrided the suprapatellar synovium. We copiously irrigated the right knee with six liters of normal saline. At the conclusion of our irrigation and debridement, I closed the medial parapatellar arthrotomy using a running 0 Stratafix suture to assure that we had a watertight closure of the capsule. Of note, a MAY drain was into the patient's right knee which communicated with the joint. I then closed the retinaculum overlying the patient's right knee using 2-0 PDS. I closed the dermal layer using 2-0 PDS and closed the epidermis using a 3-0 running nylon suture. The patient at this point was then extubated without complication and transported to the postanesthesia care unit. The patient will be weightbearing as tolerated to the right lower extremity. Her care will be transferred to the internal medicine team who will continue her IV antibiotics treatment. She will follow the right knee arthrotomy rehabilitation protocol which encourages weightbearing as tolerated and range of motion as tolerated. The patient will follow up in the [facility] orthopedic clinic in two weeks for postoperative wound check. We will continue to trend her inflammatory markers including a CRP, ESR, white blood cell count to ensure eradication of the right septic knee. Her MAY drain will be pulled after there is less than 30 mL of drainage per12 hour shift. Please consult orthopedic surgery for any concerns.
[2021-05-03] MEDS: MORPHINE 2 MG/ML 1ML VIAL (J2270) IV SCH ×4 (15:05→15:20)
[2021-05-03] MEDS: **NOTE PATIENT COMMENT** MISC XX SCH (21:00)
[2021-05-04] MEDS: MORPHINE 2 MG/ML 1ML VIAL (J2270) IV PRN ×6 (02:58→23:11)
[2021-05-04] MEDS: VANCOMYCIN HCL 1,000 MG, VIAL MATE ADAPTER 1 EACH in NS 250 ML IV SCH (03:44)
[2021-05-04 04:00] VITALS: BP 162/94
[2021-05-04] MEDS: PERCOCET 5MG/325MG TAB PO PRN ×4 (05:07→21:01)
[2021-05-04] MEDS: LEVOTHYROXINE 50MCG TABLET (0.05MG) PO SCH (05:07)
[2021-05-04 05:44] LABS: HEMOGLOBIN 12.9 g/dl (12.0-15.5); MEAN CORPUSCULAR HEMOGLOBIN 31.5 pg (27.0-33.0); MEAN CORPUSCULAR HGB CONC 33.1 g/dl (32.0-36.5); MEAN CORPUSCULAR VOLUME 95.1 fl (80.0-96.0); PLATELET COUNT, AUTOMATED 237 10^3/uL (150-450); WHITE BLOOD COUNT 17.4 10^3/uL (4.0-10.0)
[2021-05-04] MEDS: HumaLOG INSULIN (NovoLOG) PER UNIT SC SCH ×5 (05:50→21:00)
[2021-05-04 06:15] LABS: ALBUMIN 2.7 GM/DL (3.2-5.2); CALCIUM LEVEL 8.5 MG/DL (8.5-10.1); CREATININE FOR GFR 1.79 MG/DL (0.55-1.30); GLOMERULAR FILTRATION RATE 31.4 (>51); PHOSPHORUS LEVEL 3.9 MG/DL (2.5-4.9); POTASSIUM SERUM 4.4 MEQ/L (3.5-5.1)
[2021-05-04 08:10] VITALS: BP 134/79
[2021-05-04] MEDS: SPIRONOLACTONE 25 MG TAB PO SCH ×2 (08:16→21:01)
[2021-05-04] MEDS: CARVedilol 3.125 MG TAB PO SCH ×2 (08:16→21:00)
[2021-05-04] MEDS: TORSEMIDE 20 MG TAB PO SCH ×2 (08:16→21:00)
[2021-05-04] MEDS: ROSUVASTATIN 10 MG TAB (CRESTOR) PO SCH (08:17)
[2021-05-04] MEDS: POTASSIUM CHLORIDE 10 MEQ SR TABLET PO SCH ×2 (08:17→21:01)
[2021-05-04] MEDS: CETIRIZINE (ZyrTEC) 10 MG TAB PO SCH (08:17)
[2021-05-04] MEDS: GABAPENTIN 100 MG CAP PO SCH ×2 (08:17→20:59)
[2021-05-04] MEDS: MONTELUKAST 10 MG TAB PO SCH (08:17)
[2021-05-04] MEDS: OMEPRAZOLE 20 MG CAP PO SCH ×2 (08:17→21:02)
[2021-05-04] MEDS: allopurinoL 300 MG TAB PO SCH (08:17)
[2021-05-04] MEDS: MAGNESIUM OXIDE 400MG TAB (MAG-OX) PO SCH (08:17)
[2021-05-04] MEDS: ASPIRIN 81MG ENTERIC TABLET PO SCH (08:17)
[2021-05-04] MEDS: GABAPENTIN 400MG CAP PO SCH ×2 (08:18→20:59)
[2021-05-04] MEDS: DOCUSATE SODIUM 100MG CAPSULE PO SCH ×2 (08:18→21:01)
[2021-05-04] MEDS: SERTRALINE HCL 50 MG TAB PO SCH (08:18)
--- NOTE | 2021-05-04 09:30 | IPNPDOC ---
Text Note Date of Service The patient was seen on 05/04/21. NOTE Subjective: Patient seen and examined at bedside. No acute overnight events reported. No new medical complaints this morning. Objective: General: NAD, lying comfortably in bed HEENT: NC/AT, EOMI Lungs: CTA B/L Heart: +S1S2, RRR Abd: soft, NT, +BS Ext: right knee swollen, much improved from yesterday, drain in place/serosanguineous fluid, warm to touch Neuro: no gross focal deficits Psych: AAOx3 A/P: 55 y/o female with PMHx including htn, hld, copd, HLA-B27 mutation, end ometriosis, dm2, hypothyroidism, gout, ckd4 who presents with a cc of acute onset pain, swelling and redness of her right knee that began 2 days ago. Joint tap performed in the ED shows purulent joint fluid suspicious for septic arthritis. #Septic Joint - s/p washout, drain in place - cultures pending, continue IV Vanco for now - multiple drug allergies - confirmed with patient today, severe reactions as per patient - pain control - follow as per ortho - assistance appreciated - BCx pending #DM - sliding scale coverage - hypoglycemic protocol - continue gabapentin #CKD4 - Patient's cr at baseline #Asthma - continue montelukast, cetirizine #HLD - continue rosuvastatin #GERD - continue omeprazole #Depression/anxiety - continue sertraline #Gout - continue allopurinol #HTN - continue carvedilol, torsemide, spironolactone #DVT prophylaxis - mechanical Dispo: pending results of cultures for abx selection, ortho f/u VS,Fishbone, I+O VS, Fishbone, I+O Laboratory Tests 05/04/21 05:32 Vital Signs Date Time Temp Pulse Resp B/P (MAP) Pulse Ox O2 Delivery O2 Flow Rate FiO2 05/04/21 08:26 17 05/04/21 08:16 101 134/79 05/04/21 08:10 98.1 98 Room Air I&O- Last 24 Hours up to 6 AM 05/04/21 06:00 Intake Total 2280 ml Output Total 3795 ml Balance -1515 ml GUS BATES MD May 04, 2021 09:30
[2021-05-04 14:00] VITALS: BP 137/87
[2021-05-04] MEDS: ONDANSETRON 4MG/2ML VIAL IV PRN (19:25)
--- NOTE | 2021-05-04 20:52 | ER ---
ER CONSULTATION CANCELED DICTATION
[2021-05-04] MEDS: **NOTE PATIENT COMMENT** MISC XX SCH (21:00)
--- NOTE | 2021-05-04 21:05 | IPN ---
PROGRESS NOTE DATE: 05/04/2021 SERVICE: Orthopaedic surgery. SUBJECTIVE: This is a 55-year-old female postoperative day #1 for a right knee open irrigation and debridement and synovectomy for a septic knee joint. Patient complained of a 3 day history of right knee pain with synovial white blood cell count of 112,000 white blood cells. She underwent right knee open irrigation and debridement for the septic knee. Cultures are pending. Patient reports knee pain which is improving today. She is weightbearing as tolerated and her drain yielded approximately 60 mL of fluid as of the last 24 hours. OBJECTIVE: Patient's dressing is clean, dry, and intact. Her drain expressed approximately 60 mL of fluid within the last 24 hours. Patient's right lower extremity was neurologically intact, had 5/5 motor strength to the extensor hallucis longus (EHF), flexor hallucis longus (FHL), tibialis anterior, gastrocnemius, and peroneal musculature. She had sensation intact to light touch to the deep and superficial peroneal, sural, saphenous, and tibial nerve distributions. 2+ dorsalis pedis and posterior tibial arterial pulse. ASSESSMENT: This is a 55-year-old female who is, at this point, doing well postoperative day #1 from a right knee irrigation and debridement. PLAN: At this point in time, we will continue to observe the cultures from the synovial fluid from the right knee. She did have mini drain positive cocci in pairs and clusters during her gram stain analysis. Once cultures are back will treat with appropriate IV antibiotics. Of note, the patient was receiving unknown injections from a local orthopaedic group. This may have contributed to her inoculation of her right knee. The hospitalist has ordered blood cultures which are pending review. Will have her work with physical therapy for range of motion and weightbearing of the right knee with gait ambulation. Will continue to trend her discharge from her Arnaldo Levin (MAY) drain and remove it likely tomorrow on 05/05/2021.
[2021-05-04 22:00] VITALS: BP 118/78
--- NOTE | 2021-05-04 22:33 | CR ---
NEPHROLOGY CONSULTATION DATE: 05/04/2021 REQUESTING PHYSICIAN: Dr. Eduard Choi CONSULTING PHYSICIAN: Dr. Kendra Kiran REASON FOR CONSULTATION: Management of Acute renal failure superimposed on chronic kidney disease. CHIEF COMPLAINT: The patient presented to the hospital yesterday with worsening right knee pain and swelling. HISTORY OF PRESENT ILLNESS: Kavya Dela Cruz is a 55-year-old female with a past medical history of hypertension, hyperlipidemia, chronic obstructive pulmonary disease, chronic kidney disease stage 3 to at least stage 4, multiple other comorbidities as mentioned below. She follows up with Dr. Dimitri Peraza as an outpatient in the [facility]. She presented to the hospital yesterday with progressive swelling, redness and tenderness of the right knee which was going on for about 2 days. The patient was nauseated and vomiting because of the severe pain. She was unable to keep anything down. Arthrocentesis was done in the Emergency Room and fluid was purulent and highly suspicious for septic arthritis. The patient was admitted under the Hospitalist service. IV antibiotics were initiated. Nephrology Service was called for further help in the management of this patient's acute renal failure. I came to her room yesterday to see her, however she was already gone to the O.R. for right knee open irrigation, debridement and synovectomy by Orthopedic Surgery, so I saw the patient today morning. She has a dressing on the right knee, reports the pain in the right knee is significantly getting better and she feels much better. PAST MEDICAL HISTORY: The patient's past medical history is significant for: 1. Chronic kidney disease stage 3 to at least stage 4. Best baseline creatinine is 1.7 as per previous records. 2. History of hypertension. 3. Hyperlipidemia. 4. Chronic obstructive pulmonary disease. 5. 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 6. Endometriosis. 7. Diabetes mellitus type 2. 8. Hypothyroidism. 9. Chronic gout. PAST SURGICAL HISTORY: The patient's past surgical history is significant for: 1. Status post cataract removal and lens implant. 2. History of hysterectomy. 3. C-sections x2. 4. Status post open irrigation of the right knee joint which was done yesterday. ALLERGIES: She is allergic to: 1. Sulfa. 2. Tape. 3. Amoxicillin. 4. Azithromycin. 5. Cefuroxime. 6. Hydromorphone. 7. Moxifloxacin. 8. Onions. FAMILY HISTORY: No significant family history of end-stage renal disease. SOCIAL HISTORY: She is an active smoker. Denies any illicit drug abuse or alcohol abuse. REVIEW OF SYSTEMS: Constitutional: She denies any fevers or chills. Eyes: She denies any blurry vision, double vision. ENT: She denies any dysphagia or odynophagia. Cardiovascular: She denies any chest pain or palpitations. Respiratory: She denies any shortness of breath. Gastrointestinal: The patient was nauseated when she came in the hospital but she denies any nausea or vomiting at this time. Genitourinary: She denies any dysuria or hematuria. Musculoskeletal: Right knee pain as mentioned above. Skin: She denies any rashes or ulcers. Hematological/Oncological: She denies any easy bleeding or bruising. Endocrine: She reports a history of diabetes. CLINICAL APPEALS SPECIALIST: She denies any strokes or seizures. All other review of systems is negative. PHYSICAL EXAMINATION: GENERAL APPEARANCE: The patient is awake, alert, oriented x3. VITAL SIGNS: Temperature is 98.8 degrees Fahrenheit, blood pressure 137/87, pulse is 89, respiratory rate of 18, saturating 97% on room air. HEAD AND NECK: Extraocular muscles intact. Pupils are equally round and reactive to light. Mucous membranes are moist. Neck is supple. There is no jugular venous distention. CARDIOVASCULAR: S1, S2, regular rate. EXTREMITIES: No edema of the ankles. RESPIRATORY: Chest is clear to auscultation bilaterally. Bilaterally currently no rales or rhonchi. ABDOMEN: Soft, positive bowel sounds, nontender, no organomegaly. MUSCULOSKELETAL: The patient has a large dressing on the right knee and a drain in the knee. CLINICAL APPEALS SPECIALIST: No focal deficits. Power is 5/5 in all extremities. LAB REVIEW: CBC showed a WBC of 17.4; it was 23 on arrival. Hemoglobin is 12.9, platelet count 237. BMP on arrival showed sodium of 131, potassium 4.7, chloride 99, bicarbonate 24, BUN 37, creatinine 2.2, calcium 8.9, C-reactive protein 4.8. BMP done today showed sodium of 136, potassium 4.4, chloride 102, bicarbonate 25, BUN 33, creatinine is 1.7, albumin 2.7. Microbiology arthrocentesis fluid showed many gram positive cocci in pairs and clusters. IMAGING: Vascular ultrasound showed no evidence of a DVT. HOME MEDICATIONS: Her home medications include: 1. Allopurinol 300 mg daily. 2. Aspirin 81 mg daily. 3. Coreg 5 mg twice daily. 4. Cetrizine p.r.n. 5. Sensipar 30 mg p.o. once a week. 6. 2 mg subcutaneously once a week. 7. Gabapentin 100 mg p.o. twice daily. 8. Levothyroxine 50 mcg p.o. daily. 9. Magnesium Oxide 400 mg p.o. daily. 10. Montelukast 10 mg p.o. daily. 11. Omeprazole 20 mg p.o. twice daily. 12. Potassium Chloride 20 mEq twice daily. 13. Rosuvastatin 20 mg p.o. daily. 14. Zoloft 150 mg p.o. daily. 15. Januvia 50 mg p.o. daily. 16. Spironolactone 75 mg p.o. twice daily. 17. Torsemide 50 mg p.o. twice daily. CURRENT INPATIENT MEDICATIONS: The patient's medications include IV fluids which she was getting 75 mL an hour, Vancomycin one gram q. 24, Tylenol p.r.n., Allopurinol 300 mg p.o. daily, Mylanta p.r.n., Aspirin 81 mg p.o. daily, Coreg 3.125 mg p.o. twice daily, Zyrtec 10 mg p.o. daily, Colace 100 mg p.o. twice daily, Gabapentin 100 mg p.o. twice daily along with 400 mg p.o. twice daily, insulin Lispro sliding scale, Levothyroxine 50 mcg p.o. daily, Lidoderm patch, Magnesium Oxide 400 mg p.o. daily, Singulair 10 mg p.o. daily, Morphine p.r.n. for pain, Omeprazole 20 mg p.o. twice daily, Zofran p.r.n., Percocet p.r.n. for pain, Potassium Chloride 20 mEq p.o. twice daily, Rosuvastatin 20 mg p.o. daily, Zoloft 150 mg p.o. daily, Spironolactone 75 mg p.o. twice daily, Torsemide 60 mg p.o. twice daily. ASSESSMENT AND PLAN: 1. Acute renal failure superimposed on chronic kidney disease - it was secondary to dehydration. The patient was taking her diuretics at home and she was nauseated and unable to keep anything down because of pain in the right knee. She was adequately hydrated. Renal function has improved back to baseline. Okay to continue the diuretics. 2. Lower extremity edema - The patient continues to be on home dose of Spironolactone and Torsemide. Continue current dose. Edema is controlled. If renal function deteriorates further, then diuretics will be decreased. 3. Septic arthritis of the right knee - The patient is currently getting IV Vancomycin. Close monitoring of Vancomycin is needed because of history of chronic kidney disease stage 3 to at least stage 4. The patient is status post joint irrigation by Orthopedic Surgery. 4. Hypertension - blood pressure is controlled with current dose of Coreg and diuretics. She is not a candidate for boris or ARB at this time. 5. Chronic gout secondary to chronic kidney disease - continue current dose of Allopurinol 300 mg p.o. daily. Thank you for involving me in the care of this patient. I shall be happy to follow the patient along with you tomorrow morning.
[2021-05-05] MEDS: VANCOMYCIN HCL 1,000 MG, VIAL MATE ADAPTER 1 EACH in NS 250 ML IV SCH (05:05)
[2021-05-05] MEDS: LEVOTHYROXINE 50MCG TABLET (0.05MG) PO SCH (05:05)
[2021-05-05 05:42] LABS: HEMATOCRIT 38.2 % (36.0-47.0); HEMOGLOBIN 12.4 g/dl (12.0-15.5); MEAN CORPUSCULAR HEMOGLOBIN 31.2 pg (27.0-33.0); MEAN CORPUSCULAR HGB CONC 32.5 g/dl (32.0-36.5); PLATELET COUNT, AUTOMATED 251 10^3/uL (150-450); RED BLOOD COUNT 3.98 10^6/uL (4.00-5.40); WHITE BLOOD COUNT 13.3 10^3/uL (4.0-10.0)
[2021-05-05 06:12] LABS: ERYTHROCYTE SEDIMENTATION RATE 84 mm/hr (0-30)
[2021-05-05 06:27] LABS: C REACTIVE PROTEIN QUANTITATIV 22.9 MG/DL (0.00-0.30); CALCIUM LEVEL 8.8 MG/DL (8.5-10.1); CREATININE FOR GFR 2.02 MG/DL (0.55-1.30); GLOMERULAR FILTRATION RATE 27.3 (>51); PHOSPHORUS LEVEL 4.1 MG/DL (2.5-4.9); POTASSIUM SERUM 4.6 MEQ/L (3.5-5.1)
[2021-05-05] MEDS: HumaLOG INSULIN (NovoLOG) PER UNIT SC SCH ×4 (07:30→20:30)
[2021-05-05] MEDS: CARVedilol 3.125 MG TAB PO SCH ×2 (09:00→20:30)
[2021-05-05 09:05] LABS: MUCIN CLOT TEST 4+ (4+)
[2021-05-05 09:10] LABS: BODY FLUID RHEUMATOID SCREEN NEGATIVE (NEGATIVE)
[2021-05-05] MEDS: MAGNESIUM OXIDE 400MG TAB (MAG-OX) PO SCH (09:50)
[2021-05-05] MEDS: ROSUVASTATIN 10 MG TAB (CRESTOR) PO SCH (09:51)
[2021-05-05] MEDS: OMEPRAZOLE 20 MG CAP PO SCH ×2 (09:51→20:28)
[2021-05-05] MEDS: ASPIRIN 81MG ENTERIC TABLET PO SCH (09:51)
[2021-05-05] MEDS: GABAPENTIN 100 MG CAP PO SCH ×2 (09:51→20:28)
[2021-05-05] MEDS: allopurinoL 300 MG TAB PO SCH (09:51)
[2021-05-05] MEDS: SERTRALINE HCL 50 MG TAB PO SCH (09:51)
[2021-05-05] MEDS: DOCUSATE SODIUM 100MG CAPSULE PO SCH ×2 (09:51→20:29)
[2021-05-05] MEDS: GABAPENTIN 400MG CAP PO SCH ×2 (09:51→20:29)
[2021-05-05] MEDS: CETIRIZINE (ZyrTEC) 10 MG TAB PO SCH (09:51)
[2021-05-05] MEDS: MONTELUKAST 10 MG TAB PO SCH (09:51)
[2021-05-05] MEDS: POTASSIUM CHLORIDE 10 MEQ SR TABLET PO SCH ×2 (09:52→20:28)
[2021-05-05] MEDS: SPIRONOLACTONE 25 MG TAB PO SCH ×2 (09:52→20:29)
[2021-05-05] MEDS: TORSEMIDE 20 MG TAB PO SCH ×2 (09:53→20:28)
[2021-05-05] MEDS: MORPHINE 2 MG/ML 1ML VIAL (J2270) IV PRN (10:05)
--- NOTE | 2021-05-05 11:31 | IPN ---
PROGRESS NOTE DATE: 05/05/2021 SUBJECTIVE: The patient is seen and examined at the bedside today morning. She was eating her breakfast in the morning and she is not happy with the meals and she does not want a low sodium diet, she wants the diet to be changed to a regular diet. She otherwise denies any active complaints. Her right knee swelling and pain is getting better. Leukocytosis is improving and renal function is stable at baseline. OBJECTIVE: VITAL SIGNS: Temperature is 99.2 degrees Fahrenheit, blood pressure is 119/78, pulse is 90, respiratory rate is 18, saturating 95% on room air. INTAKE AND OUTPUT: Urine output recorded is 1.7 liters yesterday, there is no urine output recorded since overnight. Weight on the bed scale is 52.7 kg yesterday. GENERAL: Patient is awake, alert and oriented x3, sitting up on the sofa in no apparent distress. HEAD AND NECK: Extraocular muscles intact. Pupils equally round and reactive to light. Mucous membranes are moist. Neck is supple. There is no JVD. CARDIOVASCULAR: S1 and S2, regular rate. No edema of the bilateral lower extremities. RESPIRATORY: Chest is clear to auscultation bilaterally. Bilateral equal air entry. No rales or rhonchi. ABDOMEN: Soft, positive bowel sounds. Nontender. No organomegaly. MUSCULOSKELETAL: No clubbing or cyanosis. Pulses are 2+. GLASS TECHNOLOGIST: No focal deficit. Power is 5/5 in all extremities. LABORATORY DATA: CBC showed a WBC of 13.3, hemoglobin of 12.4, platelets are 251,000. BMP showed a sodium of 133, potassium of 4.6, chloride is 100, bicarbonate 28, BUN 38, creatinine is 2 which is close to her baseline. Microbiology: Blood cultures are pending and arthrocentesis fluid culture is pending. Initial gram stain showed many gram positive cocci in pairs and clusters. CURRENT INPATIENT MEDICATIONS: Patient's medications were reviewed by myself. She continues to be on IV Vancomycin. Her current diuretic dose is spironolactone 75 mg p.o. twice a day, torsemide 60 mg p.o. twice a day. ASSESSMENT AND PLAN: 1. Acute renal failure superimposed on chronic kidney disease. Patient has a baseline CKD III to early Stage IV. She wants to continue the current diuretic regimen and she reports she is very stable with the current diuretics. Renal function is stable close to baseline. Continue to monitor for now. 2. Lower extremity edema. Continue spironolactone 75 mg p.o. twice a day, torsemide 60 mg p.o. twice a day. 3. Septic arthritis of the right knee. Patient is getting IV Vancomycin, leukocytosis is improving. 4. Hypertension, continue Coreg and diuretics. Patient does not want a 2 gram sodium diet. Her diet was changed and liberalized to a regular diet. 5. Chronic gout. Continue current dose of Allopurinol 300 mg p.o. daily.
--- NOTE | 2021-05-05 12:45 | IPNPDOC ---
Text Note Date of Service The patient was seen on 05/05/21. NOTE Subjective: Patient seen and examined at bedside. No acute overnight events reported.. She was upset regarding her dietary modifications including 2 g sodium. For her history of hypertension, and carb consistent diet for her history of diabetes. She voices no new medical complaints. She states her knee feels much better today. Objective: General: NAD, sitting comfortably at edge of bed HEENT: NC/AT, EOMI Lungs: CTA B/L Heart: +S1S2, RRR Abd: soft, NT, +BS Ext: right knee minimal tenderness, drain in place/serosanguineous fluid, warm to touch Neuro: no gross focal deficits Psych: AAOx3 A/P: 55 y/o female with PMHx including htn, hld, copd, HLA-B27 mutation, endometrio sis, dm2, hypothyroidism, gout, ckd4 who presents with a cc of acute onset pain, swelling and redness of her right knee. Joint tap performed in the ED shows purulent joint fluid suspicious for septic arthritis. #Septic Joint - s/p washout, drain in place - cultures pending, continue IV Vanco for now - multiple drug allergies - confirmed with patient, severe reactions as per patient - pain control - follow as per ortho - assistance appreciated - WCx from washout shows no growth - BCx pending #DM - sliding scale coverage - hypoglycemic protocol - continue gabapentin - patient does not want carb consistent diet #CKD4 - Patient's cr at baseline #Asthma - continue montelukast, cetirizine #HLD - continue rosuvastatin #GERD - continue omeprazole #Depression/anxiety - continue sertraline #Gout - continue allopurinol #HTN - blood pressures low this morning - carvedilol held, hold parameters implemented - torsemide, spironolactone - not interested in 2 gram sodium diet #DVT prophylaxis - mechanical Dispo: pending results of cultures for abx selection, ortho f/u VS,Fishbone, I+O VS, Fishbone, I+O Laboratory Tests 05/05/21 05:15 Vital Signs Date Time Temp Pulse Resp B/P (MAP) Pulse Ox O2 Delivery O2 Flow Rate FiO2 05/05/21 10:15 16 05/05/21 09:00 90 05/04/21 22:00 99.2 118/78 (91) 95 Room Air I&O- Last 24 Hours up to 6 AM 05/05/21 06:00 Intake Total 900 ml Output Total 400 ml Balance 500 ml GUS BATES MD May 05, 2021 12:45
[2021-05-05 13:22] VITALS: BP 125/86
[2021-05-05] MEDS: PERCOCET 5MG/325MG TAB PO PRN ×3 (13:40→23:02)
[2021-05-05] MEDS: **NOTE PATIENT COMMENT** MISC XX SCH (20:30)
[2021-05-05 22:00] VITALS: BP 107/76
[2021-05-05] MEDS: diphenhydrAMINE 50MG/ML VIAL (J1200) IV PRN (23:02)
[2021-05-06 03:06] LABS: HEMATOCRIT 35.3 % (36.0-47.0); HEMOGLOBIN 11.6 g/dl (12.0-15.5); MEAN CORPUSCULAR HEMOGLOBIN 31.2 pg (27.0-33.0); MEAN CORPUSCULAR HGB CONC 32.9 g/dl (32.0-36.5); MEAN CORPUSCULAR VOLUME 94.9 fl (80.0-96.0); PLATELET COUNT, AUTOMATED 242 10^3/uL (150-450); RED BLOOD COUNT 3.72 10^6/uL (4.00-5.40); WHITE BLOOD COUNT 10.6 10^3/uL (4.0-10.0)
[2021-05-06 03:34] LABS: ALBUMIN 2.7 GM/DL (3.2-5.2); CALCIUM LEVEL 8.7 MG/DL (8.5-10.1); CREATININE FOR GFR 2.04 MG/DL (0.55-1.30); PHOSPHORUS LEVEL 4.3 MG/DL (2.5-4.9); POTASSIUM SERUM 4.7 MEQ/L (3.5-5.1)
[2021-05-06] MEDS: VANCOMYCIN HCL 1,000 MG, VIAL MATE ADAPTER 1 EACH in NS 250 ML IV SCH ×2 (05:11→10:04)
[2021-05-06] MEDS: LEVOTHYROXINE 50MCG TABLET (0.05MG) PO SCH (05:11)
[2021-05-06 06:00] VITALS: BP 111/73
[2021-05-06] MEDS: HumaLOG INSULIN (NovoLOG) PER UNIT SC SCH ×4 (07:30→20:32)
[2021-05-06] MEDS: DOCUSATE SODIUM 100MG CAPSULE PO SCH ×2 (09:00→20:32)
[2021-05-06] MEDS: SERTRALINE HCL 50 MG TAB PO SCH (10:04)
[2021-05-06] MEDS: ROSUVASTATIN 10 MG TAB (CRESTOR) PO SCH (10:05)
[2021-05-06] MEDS: CETIRIZINE (ZyrTEC) 10 MG TAB PO SCH (10:05)
[2021-05-06] MEDS: TORSEMIDE 20 MG TAB PO SCH ×2 (10:05→20:30)
[2021-05-06] MEDS: OMEPRAZOLE 20 MG CAP PO SCH ×2 (10:07→20:31)
[2021-05-06] MEDS: CARVedilol 3.125 MG TAB PO SCH ×2 (10:08→20:31)
[2021-05-06] MEDS: ASPIRIN 81MG ENTERIC TABLET PO SCH (10:08)
[2021-05-06] MEDS: allopurinoL 300 MG TAB PO SCH (10:09)
[2021-05-06] MEDS: GABAPENTIN 100 MG CAP PO SCH ×2 (10:09→20:31)
[2021-05-06] MEDS: MAGNESIUM OXIDE 400MG TAB (MAG-OX) PO SCH (10:09)
[2021-05-06] MEDS: MONTELUKAST 10 MG TAB PO SCH (10:09)
[2021-05-06] MEDS: POTASSIUM CHLORIDE 10 MEQ SR TABLET PO SCH ×2 (10:09→20:31)
[2021-05-06] MEDS: GABAPENTIN 400MG CAP PO SCH ×2 (10:09→20:31)
[2021-05-06] MEDS: SPIRONOLACTONE 25 MG TAB PO SCH ×2 (10:10→20:32)
--- NOTE | 2021-05-06 11:08 | IPN ---
NEPHROLOGY PROGRESS NOTE DATE: 05/06/2021 SUBJECTIVE: The patient was seen and examined at the bedside today morning. She reports right leg swelling and pain is getting better. She denies any active complaints. Her renal function is stable. Creatinine is at 2 which is her baseline. OBJECTIVE: VITAL SIGNS: Temperature is 97.9 degrees Fahrenheit, blood pressure 111/73, pulse is 83, respiratory rate of 20, saturating 96% on room air. INTAKE AND OUTPUT: There is no urine output recorded. Weight in the bed scale was 52.7 kg 2 days ago. PHYSICAL EXAMINATION: GENERAL APPEARANCE: The patient is awake, alert, oriented x3, sitting up in the bed in no apparent distress. HEAD AND NECK: Extraocular muscles intact. Pupils are equally round and reactive to light. Mucous membranes are moist. Neck is supple. There is no jugular venous distention. CARDIOVASCULAR: S1, S2, regular rate. EXTREMITIES: No edema of the bilateral lower extremities. RESPIRATORY: Chest is clear to auscultation bilaterally. Bilaterally currently no rales or rhonchi. ABDOMEN: Soft, positive bowel sounds, nontender, no organomegaly. MUSCULOSKELETAL: She has a dressing on the right leg. SAND PLANT ATTENDANT: No focal deficits. Power is 5/5 in all extremities. LAB REVIEW: CBC showed a WBC of 10.6, hemoglobin 11.6, platelet count 242. BMP showed sodium of 136, potassium 4.7, chloride 100, bicarbonate 30, BUN 40, creatinine is 2.04, glucose is 97. Microbiology gram stain of the body fluid initial culture is growing Corynebacterium species. CURRENT INPATIENT MEDICATIONS: The patient's medications were all reviewed by myself. She continues to be on IV Vancomycin. No other significant change in the medications today as compared with yesterday. ASSESSMENT AND PLAN: 1. Chronic kidney disease stage 4 the patient's renal function is stable. Creatinine has been staying stable at 2. Okay to continue current dose of diuretics as mentioned below. 2. Chronic lower extremity edema it is controlled with a high dose regimen of Torsemide 60 mg p.o. twice daily and Spironolactone 75 mg p.o. twice daily. 3. Hypertension - blood pressure is controlled with Coreg and diuretics. 4. Chronic gout - continue current dose of Allopurinol. 5. Septic arthritis of the right knee the patient is getting IV Vancomycin, switching to oral antibiotics is as per the Medical Team.
[2021-05-06] MEDS: diphenhydrAMINE 50MG/ML VIAL (J1200) IV PRN (13:15)
[2021-05-06 14:00] VITALS: BP 129/89
[2021-05-06] MEDS: PERCOCET 5MG/325MG TAB PO PRN ×2 (15:41→22:10)
--- NOTE | 2021-05-06 19:28 | IPNPDOC ---
Subjective Date Seen The patient was seen on 05/06/21. Subjective Chief Complaint/HPI Mrs. 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 This morning, he knee is better. She denies any chest pain or dyspnea. Still pending final culture results of synovial fluid. Objective Physical Examination General Exam: Positive: Alert, Cooperative Eye Exam: Negative: Sclera icteric Neck Exam: Positive: Supple Chest Exam: Positive: Clear to auscultation Heart Exam: Positive: Rate Normal, Regular Rhythm Abdomen Exam: Positive: Normal bowel sounds, Soft; Negative: Tenderness Neuro Exam: Positive: Normal Speech Psych Exam: Positive: Mental status NL, Mood NL Assessment /Plan Assessment Mrs. 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 Orthopedic surgery was consulted. On 05/03/21, Dr. Acuna took patient to the OR for right knee irrigation, debridement, and synovectomy. Patient was put on Vancomycin. WBC has been trending downwards. Currently pending synovial fluid results. Plan/VTE VTE Prophylaxis Ordered?: Yes Plan 1. Right knee septic arthritis -Orthopedic surgery took patient to OR on 05/03/21 for right knee irrigation, debridement, and synovectomy -Vancomycin until culture results return -Monitor WBC 2. DM complicated by neuropathy -Continue sliding scale insulin -Continue gabapentin 3. CKD stage 4 -Creatinine at baseline 4. Asthma -Continue montelukast and cetirizine 5. Hyperlipidemia -Continue rosuvastatin 6. GERD -Continue omeprazole 7. Depression/anxiety -Continue sertraline 8. Gout -Continue allopurinol 9. Hypertension -Continue torsemide, Coreg, and spironolactone 10. Hypothyroidism -Continue levothyroxine 11. DVT ppx -TEDs and SCD Disposition: Pending final synovial culture results VS, I&O, 24H, Fishbone Vital Signs/I&O Vital Signs Date Time Temp Pulse Resp B/P (MAP) Pulse Ox O2 Delivery O2 Flow Rate FiO2 05/06/21 16:11 20 05/06/21 14:00 98.3 85 129/89 (102) 97 Room Air I&O- Last 24 Hours up to 6 AM 05/06/21 06:00 Intake Total 2850 ml Output Total 30 ml Balance 2820 ml Laboratory Data 24H LABS Laboratory Tests 2 05/06/21 02:56: Nucleated Red Blood Cells % (auto) 0.0, Anion Gap 6L, Glomerular Filtration Rate 27.0L, Calcium Level 8.7, Phosphorus Level 4.3, Albumin 2.7L, Vancomycin Level Trough 15.0 05/06/21 11:31: Bedside Glucose (Misc Panel) 159H 05/06/21 16:33: Bedside Glucose (Misc Panel) 113H CBC/BMP Laboratory Tests 05/06/21 02:56 Microbiology Microbiology 05/04/21 Blood Culture - Preliminary, Resulted No growth after 24 hours . All specim... 05/04/21 Blood Culture - Preliminary, Resulted No growth after 24 hours . All specim... 05/03/21 Gram Stain - Final, Complete 05/03/21 Abscess Culture - Final, Complete 05/03/21 Anaerobic Culture - Final, Complete 05/02/21 Gram Stain - Final, Resulted 05/02/21 Body Fluid Culture - Preliminary, Resulted Corynebacterium Species DOMINIC WALTON DO May 06, 2021 19:28
[2021-05-06 20:19] VITALS: BP 122/78
[2021-05-06] MEDS: **NOTE PATIENT COMMENT** MISC XX SCH (20:33)
[2021-05-07] MEDS: VANCOMYCIN HCL 1,000 MG, VIAL MATE ADAPTER 1 EACH in NS 250 ML IV SCH (04:27)
[2021-05-07] MEDS: LEVOTHYROXINE 50MCG TABLET (0.05MG) PO SCH (05:00)
[2021-05-07 06:00] VITALS: BP 119/83
[2021-05-07 06:16] LABS: HEMATOCRIT 35.2 % (36.0-47.0); HEMOGLOBIN 11.6 g/dl (12.0-15.5); MEAN CORPUSCULAR HEMOGLOBIN 31.3 pg (27.0-33.0); MEAN CORPUSCULAR VOLUME 94.9 fl (80.0-96.0); PLATELET COUNT, AUTOMATED 254 10^3/uL (150-450); RED BLOOD COUNT 3.71 10^6/uL (4.00-5.40); WHITE BLOOD COUNT 10.7 10^3/uL (4.0-10.0)
[2021-05-07 06:45] LABS: ALBUMIN 2.7 GM/DL (3.2-5.2); CALCIUM LEVEL 8.7 MG/DL (8.5-10.1); CREATININE FOR GFR 1.68 MG/DL (0.55-1.30); GLOMERULAR FILTRATION RATE 33.8 (>51); PHOSPHORUS LEVEL 3.9 MG/DL (2.5-4.9); POTASSIUM SERUM 4.4 MEQ/L (3.5-5.1)
[2021-05-07] MEDS: HumaLOG INSULIN (NovoLOG) PER UNIT SC SCH ×4 (07:30→20:25)
[2021-05-07] MEDS: DOCUSATE SODIUM 100MG CAPSULE PO SCH ×2 (09:00→20:25)
[2021-05-07] MEDS: SPIRONOLACTONE 25 MG TAB PO SCH ×2 (09:06→20:24)
[2021-05-07] MEDS: SERTRALINE HCL 50 MG TAB PO SCH (09:08)
[2021-05-07] MEDS: GABAPENTIN 100 MG CAP PO SCH ×2 (09:08→20:23)
[2021-05-07] MEDS: POTASSIUM CHLORIDE 10 MEQ SR TABLET PO SCH ×2 (09:09→20:24)
[2021-05-07] MEDS: GABAPENTIN 400MG CAP PO SCH ×2 (09:09→20:23)
[2021-05-07] MEDS: OMEPRAZOLE 20 MG CAP PO SCH ×2 (09:09→20:25)
[2021-05-07] MEDS: allopurinoL 300 MG TAB PO SCH (09:09)
[2021-05-07] MEDS: ASPIRIN 81MG ENTERIC TABLET PO SCH (09:09)
[2021-05-07] MEDS: MONTELUKAST 10 MG TAB PO SCH (09:09)
[2021-05-07] MEDS: MAGNESIUM OXIDE 400MG TAB (MAG-OX) PO SCH (09:10)
[2021-05-07] MEDS: ROSUVASTATIN 10 MG TAB (CRESTOR) PO SCH (09:10)
[2021-05-07] MEDS: CETIRIZINE (ZyrTEC) 10 MG TAB PO SCH (09:10)
[2021-05-07] MEDS: CARVedilol 3.125 MG TAB PO SCH ×2 (09:12→20:27)
[2021-05-07 09:14] LABS: C REACTIVE PROTEIN QUANTITATIV 13.4 MG/DL (0.00-0.30)
[2021-05-07] MEDS: TORSEMIDE 20 MG TAB PO SCH ×2 (09:24→20:23)
[2021-05-07 10:03] LABS: ERYTHROCYTE SEDIMENTATION RATE 108 mm/hr (0-30)
[2021-05-07 14:00] VITALS: BP 136/90
--- NOTE | 2021-05-07 16:21 | IPNPDOC ---
Subjective Date Seen The patient was seen on 05/07/21. Subjective Chief Complaint/HPI Mrs. 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 This morning, she denied chest pain or dyspnea. MRSA swab was negative. CRP improved from 22.9 to 13.4. I called bacteriology about the synovial culture which has not finalized. Culture grew Corynebacterium species, but may be contaminant. There is another organism growing in the anaerobic culture, but may also be Corynebacterium species. There is nothing else growing. Patient is very anxious to go home. Looking at her allergies, she is allergic to PCN, cephalosporin, fluoroquinolones, and sulfa (Bactrim). Linezolid would be an option, but patient would require 2 week washout of Sertraline. Discussed with pharmacy. Can try doxycycline and metronidazole. Will watch overnight for reaction to PO antibiotics. Objective Physical Examination General Exam: Positive: Alert, Cooperative Eye Exam: Negative: Sclera icteric Neck Exam: Positive: Supple Chest Exam: Positive: Clear to auscultation Heart Exam: Positive: Rate Normal, Regular Rhythm Abdomen Exam: Positive: Normal bowel sounds, Soft; Negative: Tenderness Skin Exam: Positive: Rash (Rash on lower back along a single dermatome on the left. Itchy. Possibly shingles) Neuro Exam: Positive: Normal Speech Psych Exam: Positive: Mental status NL, Anxiety Assessment /Plan Assessment Mrs. 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 Orthopedic surgery was consulted. On 05/03/21, Dr. Acuna took patient to the OR for right knee irrigation, debridement, and synovectomy. Patient was put on Vancomycin. WBC has been trending downwards. All cultures have been negative. Synovial culture grew Corynebacterium species, but culture has not finalized. Called bacteriology. That is the only organism growing. There is an anaerobic culture that they are still waiting on, but this culture may also be Corynebacterium species. Only growing a few, most likely a contaminant. Patient has multiple allergies to antibiotics. She is allergic to PCN, cephalosporin, fluoroquinolones, and sulfa (Bactrim). Cannot use Linezolid as it requires 2 week washout of Sertraline. Will try Doxycycline and Metronidazole. Plan/VTE VTE Prophylaxis Ordered?: Yes Plan 1. Right knee septic arthritis -Orthopedic surgery took patient to OR on 05/03/21 for right knee irrigation, debridement, and synovectomy -Will transition from IV Vancomycin to PO Doxycycline and Metronidazole -Spoke with bacteriology, only growing Corynebacterium in aerobic culture which may be a contaminant. Growing an organism in the anaerobic culture, but may also be Corynebacterium, patient put on Metronidazole to cover for anaerobes. 2. DM complicated by neuropathy -Continue sliding scale insulin -Continue gabapentin 3. CKD stage 4 -Creatinine at baseline 4. Asthma -Continue montelukast and cetirizine 5. Hyperlipidemia -Continue rosuvastatin 6. GERD -Continue omeprazole 7. Depression/anxiety -Continue sertraline 8. Gout -Continue allopurinol 9. Hypertension -Continue torsemide, Coreg, and spironolactone 10. Hypothyroidism -Continue levothyroxine 11. DVT ppx -TEDs and SCD Disposition: Pending tolerance to PO antibiotics. If does well, possible discharge tomorrow. VS, I&O, 24H, Fishbone Vital Signs/I&O Vital Signs Date Time Temp Pulse Resp B/P (MAP) Pulse Ox O2 Delivery O2 Flow Rate FiO2 05/07/21 14:00 97.4 91 18 136/90 (105) 97 Room Air I&O- Last 24 Hours up to 6 AM 05/07/21 06:00 Intake Total 1700 ml Balance 1700 ml Laboratory Data 24H LABS Laboratory Tests 2 05/06/21 16:33: Bedside Glucose (Misc Panel) 113H 05/07/21 05:35: Nucleated Red Blood Cells % (auto) 0.0, Erythrocyte Sedimentation Rate 108H, Anion Gap 6L, Glomerular Filtration Rate 33.8L, Calcium Level 8.7, Phosphorus Level 3.9, C-Reactive Protein, Quantitative 13.40H, Albumin 2.7L 05/07/21 10:06: Methicillin-Resist S.aureus DNA PCR NOT DETECTED 05/07/21 11:30: Bedside Glucose (Misc Panel) 138H CBC/BMP Laboratory Tests 05/07/21 05:35 Microbiology Microbiology 05/04/21 Blood Culture - Preliminary, Resulted No Growth after 48 hours. All Specime... 05/04/21 Blood Culture - Preliminary, Resulted No Growth after 48 hours. All Specime... 05/03/21 Gram Stain - Final, Complete 05/03/21 Abscess Culture - Final, Complete 05/03/21 Anaerobic Culture - Final, Complete 05/02/21 Gram Stain - Final, Resulted 05/02/21 Body Fluid Culture - Preliminary, Resulted Corynebacterium Species DOMINIC WALTON DO May 07, 2021 16:21
--- NOTE | 2021-05-07 17:00 | IPN ---
PROGRESS NOTE DATE: 05/07/2021 SUBJECTIVE: Patient was seen and examined at the bedside today morning. She is afebrile, hemodynamically stable. She denies any active complaints at this time. Renal function is stable. Creatinine is actually better than baseline today at 1.6. OBJECTIVE: Vital signs: Temperature is 97.4 degrees Fahrenheit, blood pressure 136/90, pulse is 91, respiratory rate of 18, saturating 97% on room air. Intake and output: Urine output is not recorded. She has had three voids since overnight. Weight in the bed scale is not available. PHYSICAL EXAMINATION: GENERAL: Patient is awake, alert, oriented times three, lying in bed in no apparent distress. HEAD AND NECK: Extraocular muscles are intact. Pupils equally round and reactive to light. Mucous membranes are moist. Neck is supple. There is no jugular venous distention (JVD). CARDIOVASCULAR: S1, S2, regular rate. No edema of the bilateral lower extremities. RESPIRATORY: Chest is clear to auscultation bilaterally. Bilateral equal air entry. No rales or rhonchi. ABDOMEN: Soft. Positive bowel sounds. Nontender. No organomegaly. MUSCULOSKELETAL: She has a dressing on the right knee. Otherwise, no clubbing or cyanosis. CENTRAL NERVOUS SYSTEM: No focal deficit at this time. LABORATORY REVIEW: CBC showed a WBC 10.7, hemoglobin is 11.6, platelets 254. BMP showed sodium 135, potassium 4.4, chloride 100, bicarbonate 29, BUN 34. Creatinine 1.6; it was 2 yesterday. C-reactive protein is 13.4, which is improving. Albumin is 2.7. CURRENT INPATIENT MEDICATIONS: Patient's medications were all reviewed by myself. Intravenous (IV) vancomycin has been held now. She has been started on oral doxycycline and Flagyl. No other significant change in the medications today as compared with yesterday. ASSESSMENT AND PLAN: 1. Chronic kidney disease, stage III to early stage IV. Patient's renal function is stable. Creatinine has been fluctuating close to her baseline. Okay to continue diuretics. 2. Chronic lower extremity edema. It is controlled with current combination of torsemide and spironolactone. Volume status is stable. 3. Hypertension. Blood pressure is controlled with Coreg and diuretics. 4. Septic arthritis of the right knee. IV vancomycin has been stopped. She has been started on oral doxycycline and Flagyl. DISPOSITION: Patient's renal function is stable. Volume status is optimal. Nephrology service is going to sign off at this moment. Please call nephrology service for any help in the management of this patient during this hospitalization.
[2021-05-07] MEDS: metroNIDAZOLE (FLAGYL) 500MG TABLET PO SCH ×2 (17:43→20:24)
[2021-05-07] MEDS: DOXYCYCLINE HYCLATE 100MG TABLET PO SCH (20:24)
[2021-05-07] MEDS: **NOTE PATIENT COMMENT** MISC XX SCH (20:25)
[2021-05-07 20:27] VITALS: BP 150/95
[2021-05-07] MEDS ORDERED: METR-265 PO (22:42)
[2021-05-07] MEDS ORDERED: DOXY100T PO (22:42)
[2021-05-07] MEDS: PERCOCET 5MG/325MG TAB PO PRN (23:56)
[2021-05-08] MEDS ORDERED: MORPHINE 2 MG/ML 1ML VIAL (J2270) IV ONE (02:20)
[2021-05-08 05:45] VITALS: BP 145/95
[2021-05-08] MEDS: LEVOTHYROXINE 50MCG TABLET (0.05MG) PO SCH (05:46)
[2021-05-08 05:58] LABS: HEMATOCRIT 38.6 % (36.0-47.0); HEMOGLOBIN 12.6 g/dl (12.0-15.5); MEAN CORPUSCULAR HEMOGLOBIN 31.2 pg (27.0-33.0); MEAN CORPUSCULAR HGB CONC 32.6 g/dl (32.0-36.5); MEAN CORPUSCULAR VOLUME 95.5 fl (80.0-96.0); PLATELET COUNT, AUTOMATED 282 10^3/uL (150-450); RED BLOOD COUNT 4.04 10^6/uL (4.00-5.40); WHITE BLOOD COUNT 10.4 10^3/uL (4.0-10.0)
[2021-05-08 06:24] LABS: ALBUMIN 2.8 GM/DL (3.2-5.2); CALCIUM LEVEL 9.4 MG/DL (8.5-10.1); CREATININE FOR GFR 1.6 MG/DL (0.55-1.30); GLOMERULAR FILTRATION RATE 35.8 (>51); PHOSPHORUS LEVEL 3.4 MG/DL (2.5-4.9); POTASSIUM SERUM 4.4 MEQ/L (3.5-5.1)
[2021-05-08] MEDS: HumaLOG INSULIN (NovoLOG) PER UNIT SC SCH (06:57)
[2021-05-08] MEDS: ASPIRIN 81MG ENTERIC TABLET PO SCH (08:25)
[2021-05-08] MEDS: DOXYCYCLINE HYCLATE 100MG TABLET PO SCH (08:25)
[2021-05-08] MEDS: TORSEMIDE 20 MG TAB PO SCH (08:26)
[2021-05-08] MEDS: GABAPENTIN 400MG CAP PO SCH (08:27)
[2021-05-08] MEDS: GABAPENTIN 100 MG CAP PO SCH (08:27)
[2021-05-08] MEDS: ROSUVASTATIN 10 MG TAB (CRESTOR) PO SCH (08:29)
[2021-05-08] MEDS: CETIRIZINE (ZyrTEC) 10 MG TAB PO SCH (08:29)
[2021-05-08] MEDS: allopurinoL 300 MG TAB PO SCH (08:29)
[2021-05-08] MEDS: SERTRALINE HCL 50 MG TAB PO SCH (08:30)
[2021-05-08 08:31] VITALS: BP 145/95
[2021-05-08] MEDS: CARVedilol 3.125 MG TAB PO SCH (08:31)
[2021-05-08] MEDS: SPIRONOLACTONE 25 MG TAB PO SCH (08:32)
[2021-05-08] MEDS: MONTELUKAST 10 MG TAB PO SCH (08:32)
[2021-05-08] MEDS: metroNIDAZOLE (FLAGYL) 500MG TABLET PO SCH (08:33)
[2021-05-08] MEDS: POTASSIUM CHLORIDE 10 MEQ SR TABLET PO SCH (08:34)
[2021-05-08] MEDS: DOCUSATE SODIUM 100MG CAPSULE PO SCH (08:54)
--- NOTE | 2021-05-08 23:52 | DS.PDOC ---
Discharge Summary General Date of Admission May 03, 2021 at 02:06 Date of Discharge May 08, 2021 Specialist/Consultants [facility] Orthopedic surgery, Dr. Acuna Nephrology, Dr. Kiran Discharge Summary PROCEDURES PERFORMED DURING STAY: Right knee open irrigation, debridement, and synovectomy by Dr. Acuna on 05/03/21 ADMITTING DIAGNOSES: 1. Right knee septic arthritis 2. DM complicated by neuropathy 3. CKD stage 4 4. Asthma 5. Hyperlipidemia 6. GERD 7. Anxiety/Depression 8. Gout 9. Hypertension 10. Hypothyroidism DISCHARGE DIAGNOSES: 1. Right knee septic arthritis 2. DM complicated by neuropathy 3. CKD stage 4 4. Asthma 5. Hyperlipidemia 6. GERD 7. Anxiety/Depression 8. Gout 9. Hypertension 10. Hypothyroidism COMPLICATIONS/CHIEF COMPLAINT: Septic Joint Of Right Knee Joint. HISTORY OF PRESENT ILLNESS: Copied from admitting provider's H&P " This is a 55 y/o female with a pmh of htn, hld, copd, HLA-B27 mutation, endometriosis, dm2, hypothyroidism, gout, ckd4 who presents to our ED on 05/02 with a cc of acute onset pain, swelling and redness of her right knee that began 2 days ago. Patient describes her pain as severe in nature. Patient states that she is still able to bend her knee however it is excruciating to do so. Patient states that she has experienced joint swelling in the past, but never to this degree. Patient states that her pain has gotten severe to the point that she is now nauseated and vomiting. Patient states that she was not able to eat at all yesterday d/t her pain. Patient denies recent injury to the knee, however has a history of severe arthritis to this knee. Patient, at the time of my exam, denies fevers, chills, cough, sob, chest pain, abd pain, paresthesias, dysuria. Joint tap performed in the ED shows purulent joint fluid highly suspicious for septic arthritis. " HOSPITAL COURSE: Patient was put on Vancomycin. Orthopedic surgery was consulted and Dr. Acuna took patient to OR for right knee open irrigation, debridement, and synovectomy on 05/03/21. While on vancomycin patient's leukocytosis improved. Cultures from the operation were negative. Blood cultures were also negative to date. MRSA swab was negative. The synovial fluid culture from admission grew Corynebacterium species and anaerobic cocci. The Corynebacterium is most likely a contaminant. Patient had allergies to PCN, cephalosporins, fluoroquinolones, and Bactrim. Considered linezolid, but required a 2 week washout from Seroquel. Patient was tried on doxycycline and metronidazole. Patient tolerated PO antibiotics well. She did not want to stay in the hospital and felt ready for home. She was subsequently discharged home. DISCHARGE MEDICATIONS: Please see below. ALLERGIES: Please see below. PHYSICAL EXAMINATION ON DISCHARGE: VITAL SIGNS: Please see below. GENERAL: Comfortable, in no apparent distress. HEENT: Sclera clear. NECK: Supple. RESPIRATORY: Lungs clear to auscultation bilaterally, no rales, wheeze or rhonchi. CARDIOVASCULAR: Regular rate and rhythm. ABDOMEN: Soft, nontender, no guarding or rebound tenderness. Normal bowel sounds. NEUROLOGICAL: No focal deficits noted. PSYCHOLOGICAL: Very anxious to go home LABORATORY DATA: Please see below. IMAGING: Radiologist interpretation XR right knee Advanced tricompartment osteoarthritis that has progressed. Additionally there is a large suprapatellar effusion today, not present previous ly. US right leg No evidence of right lower extremity deep vein thrombus PROGNOSIS: Good ACTIVITY: As tolerated. DIET: Carbohydrate consistent diet. DISCHARGE PLAN: Home DISPOSITION: 01 Home, Self-Care. DISCHARGE INSTRUCTIONS: 1. Follow up with PCP in 1 week 2. Follow up with orthopedic surgery 1 to 2 weeks DISCHARGE CONDITION: Stable. Total time spent on discharge planning, discharge summary, and medication reconciliation: 55 minutes Vital Signs/I&Os Vital Signs Date Time Temp Pulse Resp B/P (MAP) Pulse Ox O2 Delivery O2 Flow Rate FiO2 05/08/21 08:31 93 145/95 05/08/21 05:45 97.9 17 99 Room Air I&O- Last 24 Hours up to 6 AM 05/08/21 06:00 Intake Total 1510 ml Balance 1510 ml Laboratory Data Labs 24H Laboratory Tests 2 05/08/21 05:48: Nucleated Red Blood Cells % (auto) 0.0, Anion Gap 6L, Glomerular Filtration Rate 35.8L, Calcium Level 9.4, Phosphorus Level 3.4, Albumin 2.8L CBC/BMP Laboratory Tests 05/08/21 05:48 Microbiology Microbiology 05/04/21 Blood Culture - Preliminary, Resulted No Growth after 72 hours. All specime... 05/04/21 Blood Culture - Preliminary, Resulted No Growth after 72 hours. All specime... 05/03/21 Gram Stain - Final, Complete 05/03/21 Abscess Culture - Final, Complete 05/03/21 Anaerobic Culture - Final, Complete 05/02/21 Gram Stain - Final, Complete 05/02/21 Body Fluid Culture - Final, Complete Corynebacterium Species Anaerobic Cocci Discharge Medications Scheduled Aspirin (Ecotrin) 81 Mg Tablet.dr, 81 MG PO DAILY, (Reported) Carvedilol (Carvedilol) 3.125 Mg Tablet, 3.125 MG PO BID, (Reported) Cetirizine HCl (Cetirizine HCl) 10 Mg Tab, 10 MG PO DAILY, (Reported) Cinacalcet (Sensipar) 30 Mg Tab, 30 MG PO QWEEK, (Reported) WEDNESDAY Doxycycline Hyclate (Doxycycline Hyclate) 100 Mg Tablet, 100 MG PO BID Exenatide Microspheres (Bydureon Bcise) 2 Mg/0.85 Ml Auto.injct, 2 MG SC Q7D, (Reported) WEDNESDAY Gabapentin (Gabapentin) 100 Mg Cap, 100 MG PO BID, (Reported) TAKES WITH 400MG TO EQUAL 500MG Gabapentin (Gabapentin) 400 Mg Capsule, 400 MG PO BID, (Reported) TAKES WITH 100MG TO EQUAL 500MG Levothyroxine Sodium (Levoxyl) 50 Mcg Tab, 50 MCG PO DAILY, (Reported) Magnesium Oxide (Magnesium Oxide) 400 Mg Tab, 400 MG PO DAILY, (Reported) Metronidazole (Metronidazole) 500 Mg Tablet, 500 MG PO TID Montelukast Sodium (Montelukast Sodium) 10 Mg Tab, 10 MG PO DAILY, (Reported) Omeprazole (Omeprazole) 20 Mg Cap, 20 MG PO BID, (Reported) Potassium Chloride (K-Tab ER) 10 Meq Tablet.er, 20 MEQ PO BID, (Reported) Rosuvastatin Calcium (Crestor) 20 Mg Tab, 20 MG PO DAILY, (Reported) Sertraline Hcl (Zoloft) 100 Mg Tab, 150 MG PO DAILY, (Reported) Sitagliptin (Januvia) 50 Mg Tab, 50 MG PO DAILY, (Reported) Spironolactone (Spironolactone) 25 Mg Tablet, 75 MG PO BID, (Reported) Torsemide (Torsemide) 20 Mg Tablet, 60 MG PO BID, (Reported) allopurinoL (allopurinoL) 300 Mg Tablet, 300 MG PA DAILY, (Reported) Scheduled PRN Lidocaine (Lidocaine) 5 % Pad, 1 PATCH TOP DAILY PRN for PAIN, (Reported) APPLY TO BACK,HIP AND KNEES Olopatadine HCl (Olopatadine HCl) 0.1 % Chris, 1 DROP OU ASDIRECTED PRN for ITCHING EYES, (Reported) Allergies Coded Allergies: amoxicillin (Verified Allergy, Severe, THROAT CLOSING, 02/13/19) FROM AUGMENTIN clavulanic acid (Verified Allergy, Severe, THROAT CLOSING, 02/13/19) Sulfa (Sulfonamide Antibiotics) (Verified Allergy, Intermediate, HIVES, 02/13/19) azithromycin (Verified Allergy, Intermediate, HIVES, 02/13/19) cefuroxime (Verified Allergy, Intermediate, HIVES, 02/13/19) hydromorphone (Verified Allergy, Intermediate, HIVES, 02/13/19) FROM DILAUDID moxifloxacin (Verified Allergy, Intermediate, HIVES, 02/13/19) onion (Verified Allergy, Intermediate, VOMITING, 02/13/19) TAPE (Unverified Allergy, Unknown, 08/09/14) BANDAIDS sulfamethoxazole (Verified Allergy, Unknown, 04/12/20) trimethoprim (Verified Allergy, Unknown, 04/12/20) DOMINIC WALTON DO May 08, 2021 23:52
== END 2021-05-08 09:25 | disposition home or self-care (01) | DRG 486 ==
LOC: M ED 18:13 → M ED INP 05-03 02:06 → M PCU 05-03 03:52 → M MS5PR 05-04 14:00
PROVIDERS: ADMIT Family Medicine; ATTEND Internal Medicine
PROC: 0MBN0ZZ Excision of Right Knee Bursa and Ligament, Open Approach (ICD-10-PCS; 2021-05-03)
PROC: 0SBC0ZZ Excision of Right Knee Joint, Open Approach (ICD-10-PCS; principal; 2021-05-03 12:00)
DX: M00.861 Arthritis due to other bacteria, right knee (principal); N18.4 Chronic kidney disease, stage 4 (severe); N17.9 Acute kidney failure, unspecified; E11.40 Type 2 diabetes mellitus with diabetic neuropathy, unspecified; E78.5 Hyperlipidemia, unspecified; K21.9 Gastro-esophageal reflux disease without esophagitis; J45.909 Unspecified asthma, uncomplicated; F41.9 Anxiety disorder, unspecified; F32.9 Major depressive disorder, single episode, unspecified; M10.30 Gout due to renal impairment, unspecified site; I12.9 Hypertensive chronic kidney disease with stage 1 through stage 4 chronic kidney disease, or unspecified chronic kidney disease; E03.9 Hypothyroidism, unspecified; Z79.82 Long term (current) use of aspirin; Z79.899 Other long term (current) drug therapy; Z88.0 Allergy status to penicillin; Z88.2 Allergy status to sulfonamides; Z88.5 Allergy status to narcotic agent; Z88.8 Allergy status to other drugs, medicaments and biological substances; F17.200 Nicotine dependence, unspecified, uncomplicated

== ENCOUNTER → 2021-05-28 | Outpatient (REF) | payer OTHER ==
[~2021-05-28] MED LIST changes: +ALLO300T2 PA; +BYDU2INJ7 SC; +BYDUINJ; +CARV3.12 PO; +DOXY100T PO; +GABA-283 PO; +METR-265 PO; -MONT10TA10 PO; +MONT10TA97 PO; +SPIR-10 PO; +VERA240T65 PO; -VERA24TASA PO
== END ==
LOC: M LAB REF 13:00
PROVIDERS: ATTEND Nurse Practitioner Family
DX: N39.0 Urinary tract infection, site not specified (principal)

== ENCOUNTER → 2021-09-17 | Outpatient (REF) | payer OTHER ==
[~2021-09-17] MED LIST changes: +MONT10TA10 PO; -MONT10TA97 PO
== END ==
LOC: M LAB REF 12:58
PROVIDERS: ATTEND Nurse Practitioner Family
DX: E83.42 Hypomagnesemia (principal)

== ENCOUNTER → 2021-10-30 | Outpatient (CLI) | payer OTHER ==
[~2021-10-30] MED LIST changes: -MONT10TA10 PO; +MONT10TA97 PO
== END ==
LOC: M WUC 11:54
PROVIDERS: ATTEND Nurse Practitioner Family
DX: R05.3 Chronic cough (principal); Z72.0 Tobacco use

== ENCOUNTER → 2021-11-18 | Outpatient (CLI) | payer OTHER | LOC: M PLAIMG 11:52 | PROVIDERS: ATTEND Nurse Practitioner Family | DX: Z53.9 Procedure and treatment not carried out, unspecified reason (principal); R05.3 Chronic cough ==

== ENCOUNTER 2022-01-23 12:28 | Outpatient (RCR) | payer OTHER ==
[~2022-01-23 12:28] MED LIST changes: -OLOP0.1D OU; +OLOP5DRO16 OU
== END 2022-01-24 ==
LOC: M OT 12:28
PROVIDERS: ATTEND Student in an Organized Health Care Education/Training Program
DX: M25.531 Pain in right wrist (principal); M65.4 Radial styloid tenosynovitis [de Quervain]

== ENCOUNTER → 2022-03-03 | Outpatient (CLI) | payer OTHER | LOC: M WUC 13:57 | PROVIDERS: ATTEND Physician Assistant | DX: S62.653A Nondisplaced fracture of middle phalanx of left middle finger, initial encounter for closed fracture (principal); X58.XXXA Exposure to other specified factors, initial encounter; Y92.9 Unspecified place or not applicable ==

== ENCOUNTER → 2022-05-15 | Outpatient (CLI) | payer OTHER | LOC: M WUC 11:01 | PROVIDERS: ATTEND Physician Assistant | DX: M77.31 Calcaneal spur, right foot (principal); M79.661 Pain in right lower leg; M25.571 Pain in right ankle and joints of right foot ==

== ENCOUNTER → 2022-12-03 | Outpatient (REF) | payer OTHER ==
[2022-12-03 18:04] LABS: POTASSIUM SERUM 4.1 MMOL/L (3.5-5.1)
== END ==
LOC: M LAB REF 17:16
PROVIDERS: ATTEND Nurse Practitioner Family
DX: N18.4 Chronic kidney disease, stage 4 (severe) (principal)

== ENCOUNTER → 2023-01-14 | Outpatient (REF) | payer OTHER ==
[~2023-01-14] MED LIST changes: -OLOP5DRO16 OU; +OLOP5DRO17 OU
[2023-01-14 17:59] LABS: THYROID STIMULATING HORMONE 2.828 uIU/ML (0.55-4.78)
[2023-01-14 18:00] LABS: FOLATE 10.7 NG/ML (>5.4)
== END ==
LOC: M LAB REF 16:52
PROVIDERS: ATTEND Nurse Practitioner Family
DX: E03.9 Hypothyroidism, unspecified (principal); D63.1 Anemia in chronic kidney disease

== ENCOUNTER → 2023-02-10 | Outpatient (CLI) | payer OTHER ==
[2023-02-10 16:14] LABS: RHEUMATOID FACTOR QUANT 7.7 IU/ML (<14)
[2023-02-10 16:16] LABS: FREE T4 1.18 NG/DL (0.89-1.76); THYROID STIMULATING HORMONE 2.297 uIU/ML (0.55-4.78)
[2023-02-10 16:17] LABS: FOLATE 8.6 NG/ML (>5.4)
== END ==
LOC: M PLALAB 13:04
PROVIDERS: ATTEND Psychiatry & Neurology Neurology
DX: M54.50 Low back pain, unspecified (principal); R26.89 Other abnormalities of gait and mobility; R42 Dizziness and giddiness

== ENCOUNTER → 2023-04-27 | Outpatient (CLI) | payer OTHER ==
[~2023-04-27] MED LIST changes: -GABA-283 PO; +GABA-284 PO; -K-TA10TA PO; +POTA-164 PO
== END ==
LOC: M WUC 10:11
PROVIDERS: ATTEND Physician Assistant
DX: S20.222A Contusion of left back wall of thorax, initial encounter (principal)

== ENCOUNTER 2023-06-24 09:21 | Inpatient (IN) | payer OTHER ==
[~2023-06-24] VITALS: Ht 154.9 cm; Wt 92.1 kg
[~2023-06-24 09:21] MED LIST changes: -ALLO300T2 PA; +ALLO300T2 PO
[2023-06-24] MEDS ORDERED: KETOROLAC 30 MG/ML 1ML VIAL IV ONE (10:10)
[2023-06-24] MEDS ORDERED: fentaNYL 100 MCG/2 ML INJECTION IV ONE (10:15)
[2023-06-24] MEDS ORDERED: ONDANSETRON 4MG 2ML VIAL IV ONE (11:00)
[2023-06-24] MEDS: MORPHINE 4 MG/ML 1ML VIAL IV PRN ×2 (11:31→13:48)
[2023-06-24 11:53] LABS: BASO % 0.2 % (0.0-1.0); EOS % 0.1 % (0.0-3.0); HEMATOCRIT 45.9 % (36.0-47.0); HEMOGLOBIN 14.8 g/dl (12.0-15.5); LYMPH # 1.8 10^3/uL (1.5-5.0); LYMPH % 8.9 % (24.0-44.0); MEAN CORPUSCULAR HGB CONC 32.2 g/dl (32.0-36.5); MEAN CORPUSCULAR VOLUME 92.9 fl (80.0-96.0); MONO # 1.3 10^3/uL (0.0-0.8); MONO % 6.7 % (2.0-8.0); NEUTROPHILS # 16.4 10^3/uL (1.5-8.5); NEUTROPHILS % 83.5 % (36.0-66.0); PLATELET COUNT, AUTOMATED 340 10^3/uL (150-450); RED BLOOD COUNT 4.94 10^6/uL (4.00-5.40); WHITE BLOOD COUNT 19.7 10^3/uL (4.0-10.0)
[2023-06-24 12:21] LABS: ERYTHROCYTE SEDIMENTATION RATE > 130 mm/hr (0-30)
[2023-06-24 12:25] LABS: C REACTIVE PROTEIN QUANTITATIV 10.2 MG/DL (<1.0)
[2023-06-24 12:49] LABS: CALCIUM LEVEL 6.6 MG/DL (8.5-10.1); CREATININE FOR GFR 1.09 MG/DL (0.55-1.30); GLOMERULAR FILTRATION RATE 55.3 (>51); POTASSIUM SERUM 2.3 MMOL/L (3.5-5.1)
[2023-06-24] MEDS ORDERED: POTASSIUM CHLORIDE 10MEQ SR TABLET PO ONE (13:10)
[2023-06-24] MEDS ORDERED: KCL 10MEQ/100ML SWI (KRUN) 10 MEQ in IV 1 EA IV ONE (13:20)
[2023-06-24] MEDS ORDERED: MED REC IN PROGRESS XX SCH (13:55)
[2023-06-24 14:01] LABS: MAGNESIUM LEVEL 1.3 MG/DL (1.8-2.4)
[2023-06-24 15:05] LABS: RSV AMPLIFICATION NEGATIVE (NEGATIVE)
[2023-06-24] MEDS: MAG SULF 1GM/100ML (MAG RUN) 1 GM in IV 1 EA IV SCH ×2 (16:00→17:34)
[2023-06-24] MEDS ORDERED: ACETAMINOPHEN TAB 650MG DOSE (2X325MG) PO PRN (17:40)
[2023-06-24] MEDS ORDERED: FLUC150T9 PO (18:14)
[2023-06-24] MEDS ORDERED: JARD1TAB PO (18:14)
[2023-06-24] MEDS ORDERED: LISI5TAB11 PO (18:14)
[2023-06-24] MEDS ORDERED: SERT50TA29 PO (18:14)
[2023-06-24] MEDS ORDERED: ALBU8.5H INH (18:15)
[2023-06-24] MEDS ORDERED: HOME MED LIST COMPLETE! XX SCH (18:20)
[2023-06-24] MEDS ORDERED: MORPHINE 4 MG/ML 1ML VIAL IV ONE (18:30)
[2023-06-24 19:25] LABS: CRYSTALS, BODY FLUID NONE SEEN (NONE SEEN); SOURCE, BODY FLUID RT SHOULDER; SOURCE, BODY FLUID CRYSTALS RT SHOULDER; SYNOVIAL FLUID COLOR PINK (COLORLESS)
[2023-06-24 19:38] LABS: CALCIUM LEVEL 9.3 MG/DL (8.5-10.1); CREATININE FOR GFR 1.36 MG/DL (0.55-1.30); GLOMERULAR FILTRATION RATE 42.8 (>51); MAGNESIUM LEVEL 2.7 MG/DL (1.8-2.4); POTASSIUM SERUM 3.6 MMOL/L (3.5-5.1)
[2023-06-24] MEDS ORDERED: VANCOMYCIN HCL 1,000 MG, VIAL MATE ADAPTER 1 EACH in D5W 250 ML IV ONE (21:00)
[2023-06-24] MEDS ORDERED: LIDOCAINE 2% 100MG/5ML SDV (FOR ANES.) As Ordered ONE (21:31)
[2023-06-24] MEDS ORDERED: propofoL 200 MG/20 ML VIAL As Ordered ONE (21:31)
[2023-06-24] MEDS ORDERED: ROCURONIUM BROMIDE 50MG/5ML VIAL As Ordered ONE (21:32)
[2023-06-24] MEDS ORDERED: ONDANSETRON 4MG 2ML VIAL As Ordered ONE (21:33)
[2023-06-24] MEDS ORDERED: fentaNYL 250 MCG/5 ML INJECTION As Ordered ONE (21:35)
[2023-06-24] MEDS ORDERED: MIDAZOLAM INJ 2MG/2ML VIAL As Ordered ONE (21:35)
[2023-06-24] MEDS ORDERED: SUGAMMADEX SODIUM 500 MG/5 ML VIAL (BRIDION) As Ordered ONE (21:37)
[2023-06-24] MEDS ORDERED: ACETAMINOPHEN 1000MG 100ML IV BAG As Ordered ONE (21:37)
[2023-06-24] MEDS ORDERED: EPINEPHrine INJ 1 MG/ML 1ML AMP As Ordered ONE (21:45)
[2023-06-24] MEDS ORDERED: VANCOMYCIN 1000MG/20ML VIAL As Ordered ONE (21:55)
[2023-06-24] MEDS ORDERED: TRANEXAMIC ACID 100 MG/ML 10ML VIAL As Ordered ONE (21:55)
[2023-06-24] MEDS ORDERED: VANCOMYCIN HCL 750 MG, VIAL MATE ADAPTER 1 EACH in D5W 250 ML IV ONE (22:00)
[2023-06-24] MEDS ORDERED: PHENYLephrine 500MCG 5ML (100MCG/ML) SYRINGE As Ordered ONE (23:26)
[2023-06-25] VITALS (8 sets, daily range): BP systolic 119–161; BP diastolic 76–100; TEMP 97.1–97.9; O2SAT 92–97
[2023-06-25] MEDS ORDERED: SUGAMMADEX SODIUM 500 MG/5 ML VIAL (BRIDION) As Ordered ONE (00:10)
[2023-06-25] MEDS ORDERED: ROCURONIUM BROMIDE 50MG/5ML VIAL As Ordered ONE (00:10)
[2023-06-25] MEDS ORDERED: fentaNYL 100 MCG/2 ML INJECTION As Ordered ONE (00:19)
[2023-06-25] MEDS ORDERED: ONDANSETRON 4MG 2ML VIAL As Ordered ONE (00:41)
[2023-06-25] MEDS ORDERED: oxyCODONE 5MG TAB PO PRN (01:00)
[2023-06-25] MEDS ORDERED: MORPHINE 2 MG/ML 1ML VIAL IV PRN (01:00)
[2023-06-25] MEDS ORDERED: ONDANSETRON 4MG 2ML VIAL IV PRN ×2 (01:00→02:50)
[2023-06-25] MEDS ORDERED: fentaNYL 100 MCG/2 ML INJECTION IV PRN (01:00)
[2023-06-25] MEDS ORDERED: LR 1,000 ML IV SCH (02:00)
[2023-06-25] MEDS: OMEPRAZOLE 20MG CAP PO SCH ×2 (09:00→20:02)
[2023-06-25] MEDS: GABAPENTIN 400MG CAP PO SCH ×2 (09:00→20:02)
[2023-06-25] MEDS: CARVedilol 3.125 MG TAB PO SCH ×2 (09:00→20:03)
[2023-06-25] MEDS ORDERED: SPIRONOLACTONE 25 MG TAB PO SCH (09:00)
[2023-06-25] MEDS: MONTELUKAST 10 MG TAB PO SCH (09:00)
[2023-06-25] MEDS: LEVOTHYROXINE 50MCG TABLET (0.05MG) PO SCH (09:00)
[2023-06-25] MEDS ORDERED: TORSEMIDE 20 MG TAB PO SCH (09:00)
[2023-06-25] MEDS: GABAPENTIN 100 MG CAP PO SCH ×2 (09:00→20:03)
[2023-06-25] MEDS: VANCOMYCIN HCL 1,000 MG, VIAL MATE ADAPTER 1 EACH in D5W 250 ML IV SCH ×2 (09:16→20:01)
[2023-06-25 09:24] LABS: HEMATOCRIT 38.2 % (36.0-47.0); MEAN CORPUSCULAR HEMOGLOBIN 30.7 pg (27.0-33.0); MEAN CORPUSCULAR HGB CONC 33.2 g/dl (32.0-36.5); MEAN CORPUSCULAR VOLUME 92.3 fl (80.0-96.0); PLATELET COUNT, AUTOMATED 269 10^3/uL (150-450); RED BLOOD COUNT 4.14 10^6/uL (4.00-5.40); WHITE BLOOD COUNT 20.6 10^3/uL (4.0-10.0)
[2023-06-25 09:29] LABS: HEMOGLOBIN 12.7 g/dl (12.0-15.5)
[2023-06-25 09:42] LABS: CALCIUM LEVEL 8.7 MG/DL (8.5-10.1); CREATININE FOR GFR 1.33 MG/DL (0.55-1.30); GLOMERULAR FILTRATION RATE 43.9 (>51); MAGNESIUM LEVEL 2.1 MG/DL (1.8-2.4); POTASSIUM SERUM 3.6 MMOL/L (3.5-5.1)
[2023-06-25] MEDS: MORPHINE 2 MG/ML 1ML VIAL IV PRN ×2 (11:33→20:01)
[2023-06-25] MEDS ORDERED: OLOPATADINE 0.1% OPHTH SOL 5ML(PATANOL) OU PRN (11:50)
[2023-06-25] MEDS ORDERED: LIDOCAINE 5% (LIDODERM) PATCH TOP PRN (11:50)
[2023-06-25] MEDS ORDERED: ALBUTEROL 90 MCG/ACT 8GM HFA INHALER INH PRN (11:50)
[2023-06-25] MEDS: allopurinoL 300 MG TAB PO SCH (15:39)
[2023-06-25] MEDS: ASPIRIN 81MG ENTERIC TABLET PO SCH (15:39)
[2023-06-25] MEDS: CETIRIZINE (ZyrTEC) 10 MG TAB PO SCH (15:40)
[2023-06-25] MEDS: MAGNESIUM OXIDE 400MG TAB (MAG-OX) PO SCH (15:40)
[2023-06-25] MEDS: lisinopriL 5 MG TAB PO SCH (15:44)
[2023-06-25] MEDS: SERTRALINE 100 MG TAB PO SCH (15:45)
[2023-06-25] MEDS: SERTRALINE HCL 50 MG TAB PO SCH (15:45)
[2023-06-25] MEDS: CINACALCET 30 MG TAB (SENSIPAR) PO SCH (16:03)
[2023-06-25] MEDS: TORSEMIDE 20 MG TAB PO SCH ×2 (20:02→21:00)
[2023-06-25] MEDS: ROSUVASTATIN 10 MG TAB (CRESTOR) PO SCH (20:02)
[2023-06-25] MEDS: SPIRONOLACTONE 25 MG TAB PO SCH ×2 (20:03→21:00)
[2023-06-25] MEDS ORDERED: DEXTROSE 50% 50ML SYRINGE IV PRN (23:45)
[2023-06-25] MEDS ORDERED: GLUCAGON INJ 1MG VIAL SC PRN (23:45)
[2023-06-25] MEDS ORDERED: GLUCOSE 4GM CHEW TABLET PO PRN (23:45)
[2023-06-26] MEDS: MORPHINE 2 MG/ML 1ML VIAL IV PRN ×2 (00:13→07:21)
[2023-06-26 06:42] VITALS: BP 103/57; TEMP 97.9; O2SAT 95
[2023-06-26] MEDS: INSULIN LISPRO (NovoLOG) PER UNIT SC SCH ×4 (07:29→21:00)
[2023-06-26 08:05] LABS: HEMATOCRIT 36.3 % (36.0-47.0); HEMOGLOBIN 11.6 g/dl (12.0-15.5); MEAN CORPUSCULAR HEMOGLOBIN 30.1 pg (27.0-33.0); MEAN CORPUSCULAR VOLUME 94.3 fl (80.0-96.0); PLATELET COUNT, AUTOMATED 282 10^3/uL (150-450); RED BLOOD COUNT 3.85 10^6/uL (4.00-5.40); WHITE BLOOD COUNT 13.2 10^3/uL (4.0-10.0)
[2023-06-26 08:25] LABS: CREATININE FOR GFR 1.36 MG/DL (0.55-1.30); GLOMERULAR FILTRATION RATE 42.8 (>51); POTASSIUM SERUM 3.4 MMOL/L (3.5-5.1)
[2023-06-26 08:31] LABS: ERYTHROCYTE SEDIMENTATION RATE > 130 mm/hr (0-30)
[2023-06-26] MEDS: lisinopriL 5 MG TAB PO SCH ×2 (09:00→09:55)
[2023-06-26] MEDS: TORSEMIDE 20 MG TAB PO SCH ×2 (09:00→19:57)
[2023-06-26] MEDS: SPIRONOLACTONE 25 MG TAB PO SCH ×2 (09:00→19:57)
[2023-06-26] MEDS: allopurinoL 300 MG TAB PO SCH (09:53)
[2023-06-26] MEDS: GABAPENTIN 100 MG CAP PO SCH ×2 (09:54→19:55)
[2023-06-26] MEDS: GABAPENTIN 400MG CAP PO SCH ×2 (09:54→19:57)
[2023-06-26] MEDS: ASPIRIN 81MG ENTERIC TABLET PO SCH (09:54)
[2023-06-26] MEDS: LEVOTHYROXINE 50MCG TABLET (0.05MG) PO SCH (09:57)
[2023-06-26] MEDS: MONTELUKAST 10 MG TAB PO SCH (09:57)
[2023-06-26] MEDS: SERTRALINE 100 MG TAB PO SCH (09:58)
[2023-06-26] MEDS: OMEPRAZOLE 20MG CAP PO SCH ×2 (09:58→19:56)
[2023-06-26] MEDS: SERTRALINE HCL 50 MG TAB PO SCH (09:59)
[2023-06-26] MEDS: CARVedilol 3.125 MG TAB PO SCH ×2 (10:00→19:56)
[2023-06-26] MEDS: CETIRIZINE (ZyrTEC) 10 MG TAB PO SCH ×2 (10:02→10:03)
[2023-06-26] MEDS: MAGNESIUM OXIDE 400MG TAB (MAG-OX) PO SCH (10:02)
[2023-06-26] MEDS ORDERED: POTASSIUM CHLORIDE 10MEQ SR TABLET PO ONE (10:15)
[2023-06-26] MEDS: oxyCODONE 5MG TAB PO PRN ×2 (10:58→19:56)
[2023-06-26 14:00] VITALS: BP 94/64; TEMP 97.7; O2SAT 97
[2023-06-26] MEDS: POTASSIUM CHLORIDE 10MEQ SR TABLET PO SCH (19:55)
[2023-06-26] MEDS: ROSUVASTATIN 10 MG TAB (CRESTOR) PO SCH (19:57)
[2023-06-26 20:00] VITALS: BP 124/68; TEMP 97; O2SAT 95
[2023-06-27 05:53] VITALS: BP 123/69; TEMP 97.9; O2SAT 95
[2023-06-27 08:04] LABS: BASO % 0.3 % (0.0-1.0); EOS # 0.2 10^3/uL (0.0-0.5); HEMATOCRIT 35.6 % (36.0-47.0); HEMOGLOBIN 11.2 g/dl (12.0-15.5); LYMPH % 17.2 % (24.0-44.0); MEAN CORPUSCULAR HEMOGLOBIN 29.9 pg (27.0-33.0); MEAN CORPUSCULAR HGB CONC 31.5 g/dl (32.0-36.5); MEAN CORPUSCULAR VOLUME 95.2 fl (80.0-96.0); MONO % 8.6 % (2.0-8.0); NEUTROPHILS # 8.2 10^3/uL (1.5-8.5); NEUTROPHILS % 71.6 % (36.0-66.0); PLATELET COUNT, AUTOMATED 289 10^3/uL (150-450); RED BLOOD COUNT 3.74 10^6/uL (4.00-5.40); WHITE BLOOD COUNT 11.5 10^3/uL (4.0-10.0)
[2023-06-27 08:10] LABS: C REACTIVE PROTEIN QUANTITATIV 20.3 MG/DL (<1.0)
[2023-06-27 08:11] LABS: VANCOMYCIN RANDOM 13.8 UG/ML
[2023-06-27 08:12] LABS: CALCIUM LEVEL 8.2 MG/DL (8.5-10.1); CREATININE FOR GFR 1.56 MG/DL (0.55-1.30); GLOMERULAR FILTRATION RATE 36.5 (>51)
[2023-06-27] MEDS: TORSEMIDE 20 MG TAB PO SCH (09:00)
[2023-06-27] MEDS: SPIRONOLACTONE 25 MG TAB PO SCH (09:00)
[2023-06-27] MEDS: POTASSIUM CHLORIDE 10MEQ SR TABLET PO SCH ×2 (09:08→19:54)
[2023-06-27] MEDS: INSULIN LISPRO (NovoLOG) PER UNIT SC SCH ×4 (09:08→21:00)
[2023-06-27] MEDS: OMEPRAZOLE 20MG CAP PO SCH ×2 (09:09→19:55)
[2023-06-27] MEDS: GABAPENTIN 400MG CAP PO SCH ×2 (09:09→19:53)
[2023-06-27] MEDS: MAGNESIUM OXIDE 400MG TAB (MAG-OX) PO SCH (09:09)
[2023-06-27] MEDS: ASPIRIN 81MG ENTERIC TABLET PO SCH (09:10)
[2023-06-27] MEDS: MONTELUKAST 10 MG TAB PO SCH (09:10)
[2023-06-27] MEDS: SERTRALINE HCL 50 MG TAB PO SCH (09:11)
[2023-06-27] MEDS: SERTRALINE 100 MG TAB PO SCH (09:11)
[2023-06-27] MEDS: LEVOTHYROXINE 50MCG TABLET (0.05MG) PO SCH (09:11)
[2023-06-27] MEDS: allopurinoL 300 MG TAB PO SCH (09:11)
[2023-06-27] MEDS: GABAPENTIN 100 MG CAP PO SCH ×2 (09:12→19:53)
[2023-06-27] MEDS: lisinopriL 5 MG TAB PO SCH (09:13)
[2023-06-27] MEDS: CARVedilol 3.125 MG TAB PO SCH ×2 (09:13→19:54)
[2023-06-27] MEDS: VANCOMYCIN HCL 1,000 MG, VIAL MATE ADAPTER 1 EACH in D5W 250 ML IV SCH (09:15)
[2023-06-27 09:18] LABS: URIC ACID 4.4 MG/DL (3.1-7.8)
[2023-06-27] MEDS: predniSONE 20 MG TAB PO SCH (13:07)
[2023-06-27 14:00] VITALS: BP 116/67; TEMP 97.7; O2SAT 96
[2023-06-27 19:34] VITALS: BP 140/90; TEMP 98.1; O2SAT 97
[2023-06-27] MEDS: ROSUVASTATIN 10 MG TAB (CRESTOR) PO SCH (19:53)
[2023-06-27] MEDS: oxyCODONE 5MG TAB PO PRN (20:02)
[2023-06-28 05:17] VITALS: BP 117/71; TEMP 97.9; O2SAT 97
[2023-06-28 08:15] LABS: BASO % 0.3 % (0.0-1.0); EOS # 0.1 10^3/uL (0.0-0.5); EOS % 0.9 % (0.0-3.0); HEMATOCRIT 34.4 % (36.0-47.0); HEMOGLOBIN 11.1 g/dl (12.0-15.5); LYMPH # 2.6 10^3/uL (1.5-5.0); LYMPH % 17.8 % (24.0-44.0); MEAN CORPUSCULAR HEMOGLOBIN 30.6 pg (27.0-33.0); MEAN CORPUSCULAR HGB CONC 32.3 g/dl (32.0-36.5); MEAN CORPUSCULAR VOLUME 94.8 fl (80.0-96.0); MONO % 6.6 % (2.0-8.0); NEUTROPHILS # 10.8 10^3/uL (1.5-8.5); NEUTROPHILS % 73.9 % (36.0-66.0); PLATELET COUNT, AUTOMATED 285 10^3/uL (150-450); RED BLOOD COUNT 3.63 10^6/uL (4.00-5.40); WHITE BLOOD COUNT 14.7 10^3/uL (4.0-10.0)
[2023-06-28 08:41] LABS: C REACTIVE PROTEIN QUANTITATIV 10.3 MG/DL (<1.0)
[2023-06-28 08:42] LABS: CALCIUM LEVEL 8.6 MG/DL (8.5-10.1); CREATININE FOR GFR 1.39 MG/DL (0.55-1.30); GLOMERULAR FILTRATION RATE 41.8 (>51); POTASSIUM SERUM 4.5 MMOL/L (3.5-5.1)
[2023-06-28] MEDS: allopurinoL 300 MG TAB PO SCH (08:49)
[2023-06-28] MEDS: INSULIN LISPRO (NovoLOG) PER UNIT SC SCH ×4 (08:49→20:30)
[2023-06-28] MEDS: LEVOTHYROXINE 50MCG TABLET (0.05MG) PO SCH (08:49)
[2023-06-28] MEDS: ASPIRIN 81MG ENTERIC TABLET PO SCH (08:50)
[2023-06-28] MEDS: POTASSIUM CHLORIDE 10MEQ SR TABLET PO SCH ×2 (08:50→20:28)
[2023-06-28] MEDS: CETIRIZINE (ZyrTEC) 10 MG TAB PO SCH (08:50)
[2023-06-28] MEDS: GABAPENTIN 400MG CAP PO SCH ×2 (08:50→20:27)
[2023-06-28] MEDS: CINACALCET 30 MG TAB (SENSIPAR) PO SCH (08:50)
[2023-06-28] MEDS: MONTELUKAST 10 MG TAB PO SCH (08:51)
[2023-06-28] MEDS: SERTRALINE HCL 50 MG TAB PO SCH (08:51)
[2023-06-28] MEDS: GABAPENTIN 100 MG CAP PO SCH ×2 (08:51→20:27)
[2023-06-28] MEDS: predniSONE 20 MG TAB PO SCH (08:51)
[2023-06-28] MEDS: MAGNESIUM OXIDE 400MG TAB (MAG-OX) PO SCH (08:51)
[2023-06-28] MEDS: SERTRALINE 100 MG TAB PO SCH (08:51)
[2023-06-28] MEDS: OMEPRAZOLE 20MG CAP PO SCH ×2 (08:51→20:28)
[2023-06-28] MEDS: CARVedilol 3.125 MG TAB PO SCH ×2 (08:52→20:27)
[2023-06-28] MEDS: VANCOMYCIN HCL 1,000 MG, VIAL MATE ADAPTER 1 EACH in D5W 250 ML IV SCH (09:48)
[2023-06-28 10:49] LABS: ERYTHROCYTE SEDIMENTATION RATE > 130 mm/hr (0-30)
[2023-06-28 13:23] VITALS: BP 130/68; TEMP 97.7; O2SAT 96
[2023-06-28] MEDS ORDERED: VANCOMYCIN HCL 1,000 MG, VIAL MATE ADAPTER 1 EACH in D5W 250 ML IV SCH (13:50)
[2023-06-28 15:18] LABS: PROCALCITONIN 0.09 ng/ml
[2023-06-28 20:25] VITALS: BP 157/80; TEMP 97.9
[2023-06-28] MEDS: ROSUVASTATIN 10 MG TAB (CRESTOR) PO SCH (20:27)
[2023-06-28] MEDS: oxyCODONE 5MG TAB PO PRN (20:36)
[2023-06-29 01:07] VITALS: O2SAT 97
[2023-06-29 04:47] VITALS: BP 138/87; TEMP 97.9; O2SAT 98
[2023-06-29] MEDS ORDERED: predniSONE 20 MG TAB PO ONE (08:00)
[2023-06-29] MEDS: GABAPENTIN 100 MG CAP PO SCH ×2 (08:57→21:48)
[2023-06-29] MEDS: ASPIRIN 81MG ENTERIC TABLET PO SCH (08:57)
[2023-06-29] MEDS: GABAPENTIN 400MG CAP PO SCH ×2 (08:57→21:48)
[2023-06-29] MEDS: MAGNESIUM OXIDE 400MG TAB (MAG-OX) PO SCH (08:57)
[2023-06-29] MEDS: INSULIN LISPRO (NovoLOG) PER UNIT SC SCH ×4 (08:58→21:00)
[2023-06-29] MEDS: CARVedilol 3.125 MG TAB PO SCH ×2 (08:59→21:00)
[2023-06-29] MEDS: MONTELUKAST 10 MG TAB PO SCH (08:59)
[2023-06-29] MEDS: OMEPRAZOLE 20MG CAP PO SCH ×2 (08:59→21:49)
[2023-06-29] MEDS: SERTRALINE HCL 50 MG TAB PO SCH (08:59)
[2023-06-29] MEDS: CETIRIZINE (ZyrTEC) 10 MG TAB PO SCH (08:59)
[2023-06-29] MEDS: POTASSIUM CHLORIDE 10MEQ SR TABLET PO SCH ×2 (08:59→21:50)
[2023-06-29] MEDS: allopurinoL 300 MG TAB PO SCH (08:59)
[2023-06-29] MEDS: oxyCODONE 5MG TAB PO PRN (09:00)
[2023-06-29] MEDS: LEVOTHYROXINE 50MCG TABLET (0.05MG) PO SCH (09:00)
[2023-06-29] MEDS: SERTRALINE 100 MG TAB PO SCH (09:00)
[2023-06-29 09:13] LABS: BASO # 0.1 10^3/uL (0.0-0.2); BASO % 0.3 % (0.0-1.0); EOS # 0.2 10^3/uL (0.0-0.5); EOS % 1.6 % (0.0-3.0); HEMATOCRIT 36.1 % (36.0-47.0); HEMOGLOBIN 11.3 g/dl (12.0-15.5); LYMPH # 2.7 10^3/uL (1.5-5.0); LYMPH % 18.5 % (24.0-44.0); MEAN CORPUSCULAR HEMOGLOBIN 29.7 pg (27.0-33.0); MEAN CORPUSCULAR HGB CONC 31.3 g/dl (32.0-36.5); MONO % 6.7 % (2.0-8.0); NEUTROPHILS # 10.7 10^3/uL (1.5-8.5); NEUTROPHILS % 72.4 % (36.0-66.0); PLATELET COUNT, AUTOMATED 322 10^3/uL (150-450); WHITE BLOOD COUNT 14.8 10^3/uL (4.0-10.0)
[2023-06-29 09:40] LABS: BLOOD UREA NITROGEN 33 MG/DL (9-23); CALCIUM LEVEL 8.5 MG/DL (8.5-10.1); CARBON DIOXIDE LEVEL 27 MMOL/L (20-31); CHLORIDE LEVEL 109 MMOL/L (98-107); CREATININE FOR GFR 1.36 MG/DL (0.55-1.30); GLOMERULAR FILTRATION RATE 42.8 (>51); GLUCOSE, FASTING 127 MG/DL (60-100); POTASSIUM SERUM 4.7 MMOL/L (3.5-5.1); SODIUM LEVEL 140 MMOL/L (136-145)
[2023-06-29] MEDS: VANCOMYCIN HCL 1,000 MG, VIAL MATE ADAPTER 1 EACH in D5W 250 ML IV SCH (10:01)
[2023-06-29 10:07] LABS: HIV 1&2 SCREEN NEGATIVE (NEGATIVE)
[2023-06-29 10:15] LABS: HEPATITIS C VIRUS ABY INDEX 0.04 INDEX (<0.8)
[2023-06-29 14:05] VITALS: BP 142/75; TEMP 98.1; O2SAT 95
[2023-06-29 21:29] VITALS: BP 110/68; TEMP 98.1; O2SAT 97
[2023-06-29] MEDS: ROSUVASTATIN 10 MG TAB (CRESTOR) PO SCH (21:49)
[2023-06-30] MEDS: oxyCODONE 5MG TAB PO PRN ×3 (00:49→20:52)
[2023-06-30 07:00] VITALS: BP 132/82; TEMP 98; O2SAT 97
[2023-06-30 08:11] LABS: HEPATITIS B CORE ANTIBODY IGG Negative (Negative)
[2023-06-30 08:43] LABS: HEMATOCRIT 40.3 % (36.0-47.0); HEMOGLOBIN 12.6 g/dl (12.0-15.5); MEAN CORPUSCULAR HEMOGLOBIN 29.9 pg (27.0-33.0); MEAN CORPUSCULAR HGB CONC 31.3 g/dl (32.0-36.5); MEAN CORPUSCULAR VOLUME 95.7 fl (80.0-96.0); RED BLOOD COUNT 4.21 10^6/uL (4.00-5.40); WHITE BLOOD COUNT 19.1 10^3/uL (4.0-10.0)
[2023-06-30 08:47] LABS: PLATELET COUNT, AUTOMATED 431 10^3/uL (150-450)
[2023-06-30 09:01] LABS: C REACTIVE PROTEIN QUANTITATIV 3.3 MG/DL (<1.0); VANCOMYCIN LEVEL TROUGH 15.5 UG/ML (10.0-20.0)
[2023-06-30 09:02] LABS: CALCIUM LEVEL 8.8 MG/DL (8.5-10.1); CREATININE FOR GFR 1.23 MG/DL (0.55-1.30); GLOMERULAR FILTRATION RATE 48.1 (>51); POTASSIUM SERUM 4.4 MMOL/L (3.5-5.1)
[2023-06-30 09:10] LABS: BASOPHILS 1 % (0-1); EOSINOPHILS 3 % (0-3); LYMPHOCYTES 38 % (16-44); MONOCYTES 12 % (0-5); NEUTROPHILS 46 % (28-66)
[2023-06-30 09:11] LABS: ANISOCYTOSIS 1+; PLATELET ESTIMATE NORMAL (NORMAL)
[2023-06-30 09:27] LABS: ERYTHROCYTE SEDIMENTATION RATE > 130 mm/hr (0-30)
[2023-06-30] MEDS: allopurinoL 300 MG TAB PO SCH ×2 (10:13→10:16)
[2023-06-30] MEDS: GABAPENTIN 400MG CAP PO SCH ×2 (10:13→10:16)
[2023-06-30] MEDS: GABAPENTIN 100 MG CAP PO SCH ×2 (10:13→10:16)
[2023-06-30] MEDS: CETIRIZINE (ZyrTEC) 10 MG TAB PO SCH ×2 (10:13→10:16)
[2023-06-30] MEDS: SERTRALINE HCL 50 MG TAB PO SCH ×2 (10:13→10:16)
[2023-06-30] MEDS: SERTRALINE 100 MG TAB PO SCH ×2 (10:14→10:16)
[2023-06-30] MEDS: POTASSIUM CHLORIDE 10MEQ SR TABLET PO SCH ×2 (10:14→20:53)
[2023-06-30] MEDS: OMEPRAZOLE 20MG CAP PO SCH ×2 (10:14→20:55)
[2023-06-30] MEDS: MONTELUKAST 10 MG TAB PO SCH (10:14)
[2023-06-30] MEDS: ASPIRIN 81MG ENTERIC TABLET PO SCH (10:14)
[2023-06-30] MEDS: MAGNESIUM OXIDE 400MG TAB (MAG-OX) PO SCH (10:14)
[2023-06-30] MEDS: CARVedilol 3.125 MG TAB PO SCH ×2 (10:15→20:51)
[2023-06-30] MEDS ORDERED: SPIRONOLACTONE 50 MG TAB PO ONE (10:15)
[2023-06-30] MEDS ORDERED: TORSEMIDE 20 MG TAB PO ONE (10:15)
[2023-06-30] MEDS: LEVOTHYROXINE 50MCG TABLET (0.05MG) PO SCH (10:16)
[2023-06-30] MEDS: INSULIN LISPRO (NovoLOG) PER UNIT SC SCH ×4 (10:17→20:55)
[2023-06-30] MEDS: VANCOMYCIN HCL 1,000 MG, VIAL MATE ADAPTER 1 EACH in D5W 250 ML IV SCH (10:18)
[2023-06-30 14:00] VITALS: BP 134/72; TEMP 97.4; O2SAT 99
[2023-06-30 20:41] VITALS: BP 125/79; TEMP 97.2; O2SAT 97
[2023-06-30] MEDS: ROSUVASTATIN 10 MG TAB (CRESTOR) PO SCH (20:54)
[2023-07-01 05:22] VITALS: BP 118/76; TEMP 96.2; O2SAT 97
[2023-07-01] MEDS: traMADol 50 MG TAB PO SCH ×3 (06:00→21:42)
[2023-07-01 07:07] LABS: BASO # 0.1 10^3/uL (0.0-0.2); BASO % 0.5 % (0.0-1.0); EOS # 0.4 10^3/uL (0.0-0.5); EOS % 2.8 % (0.0-3.0); HEMATOCRIT 36.6 % (36.0-47.0); HEMOGLOBIN 11.5 g/dl (12.0-15.5); LYMPH % 20.9 % (24.0-44.0); MEAN CORPUSCULAR HEMOGLOBIN 29.7 pg (27.0-33.0); MEAN CORPUSCULAR HGB CONC 31.4 g/dl (32.0-36.5); MEAN CORPUSCULAR VOLUME 94.6 fl (80.0-96.0); MONO # 1.4 10^3/uL (0.0-0.8); MONO % 9.9 % (2.0-8.0); NEUTROPHILS # 9.4 10^3/uL (1.5-8.5); NEUTROPHILS % 65.3 % (36.0-66.0); PLATELET COUNT, AUTOMATED 346 10^3/uL (150-450); RED BLOOD COUNT 3.87 10^6/uL (4.00-5.40); WHITE BLOOD COUNT 14.4 10^3/uL (4.0-10.0)
[2023-07-01 07:30] LABS: CALCIUM LEVEL 8.6 MG/DL (8.5-10.1); CREATININE FOR GFR 1.35 MG/DL (0.55-1.30); GLOMERULAR FILTRATION RATE 43.2 (>51); POTASSIUM SERUM 4.8 MMOL/L (3.5-5.1)
[2023-07-01] MEDS: CETIRIZINE (ZyrTEC) 10 MG TAB PO SCH (08:50)
[2023-07-01] MEDS: CINACALCET 30 MG TAB (SENSIPAR) PO SCH (08:50)
[2023-07-01] MEDS: POTASSIUM CHLORIDE 10MEQ SR TABLET PO SCH ×2 (08:50→21:42)
[2023-07-01] MEDS: GABAPENTIN 400MG CAP PO SCH ×2 (08:50→21:43)
[2023-07-01] MEDS: MAGNESIUM OXIDE 400MG TAB (MAG-OX) PO SCH (08:51)
[2023-07-01] MEDS: LEVOTHYROXINE 50MCG TABLET (0.05MG) PO SCH (08:52)
[2023-07-01] MEDS: allopurinoL 300 MG TAB PO SCH (08:52)
[2023-07-01] MEDS: SERTRALINE 100 MG TAB PO SCH (08:52)
[2023-07-01] MEDS: GABAPENTIN 100 MG CAP PO SCH ×2 (08:52→21:43)
[2023-07-01] MEDS: oxyCODONE 5MG TAB PO PRN (08:52)
[2023-07-01] MEDS: OMEPRAZOLE 20MG CAP PO SCH ×2 (08:53→21:42)
[2023-07-01] MEDS: ASPIRIN 81MG ENTERIC TABLET PO SCH (08:53)
[2023-07-01] MEDS: MONTELUKAST 10 MG TAB PO SCH (08:53)
[2023-07-01] MEDS: SERTRALINE HCL 50 MG TAB PO SCH (08:53)
[2023-07-01] MEDS: CARVedilol 3.125 MG TAB PO SCH ×2 (08:53→21:44)
[2023-07-01] MEDS: INSULIN LISPRO (NovoLOG) PER UNIT SC SCH ×4 (08:54→21:00)
[2023-07-01] MEDS: VANCOMYCIN HCL 1,000 MG, VIAL MATE ADAPTER 1 EACH in D5W 250 ML IV SCH (08:55)
[2023-07-01] MEDS ORDERED: SPIRONOLACTONE 50 MG TAB PO ONE (11:35)
[2023-07-01] MEDS ORDERED: TORSEMIDE (DEMADEX) 50 MG PER 1/2 TAB PO ONE (12:00)
[2023-07-01 14:00] VITALS: BP 140/86; TEMP 97.1; O2SAT 98
[2023-07-01] MEDS: ACETAMINOPHEN 500 MG TAB PO SCH ×2 (14:00→21:43)
[2023-07-01] MEDS: SPIRONOLACTONE 50 MG TAB PO SCH (17:01)
[2023-07-01] MEDS: TORSEMIDE (DEMADEX) 50 MG PER 1/2 TAB PO SCH (17:01)
[2023-07-01 20:05] VITALS: BP 119/84; TEMP 97.5; O2SAT 98
[2023-07-01] MEDS: ROSUVASTATIN 10 MG TAB (CRESTOR) PO SCH (21:43)
[2023-07-02 05:50] VITALS: BP 135/94; TEMP 96.2; O2SAT 97
[2023-07-02] MEDS: traMADol 50 MG TAB PO SCH ×2 (06:00→14:00)
[2023-07-02] MEDS: ACETAMINOPHEN 500 MG TAB PO SCH ×2 (06:34→14:00)
[2023-07-02 08:18] LABS: BASO # 0.1 10^3/uL (0.0-0.2); BASO % 0.4 % (0.0-1.0); EOS # 0.4 10^3/uL (0.0-0.5); EOS % 3.3 % (0.0-3.0); HEMATOCRIT 37.5 % (36.0-47.0); LYMPH # 2.3 10^3/uL (1.5-5.0); LYMPH % 17.4 % (24.0-44.0); MEAN CORPUSCULAR HEMOGLOBIN 29.9 pg (27.0-33.0); MEAN CORPUSCULAR VOLUME 93.3 fl (80.0-96.0); MONO % 7.9 % (2.0-8.0); NEUTROPHILS # 9.2 10^3/uL (1.5-8.5); NEUTROPHILS % 70.4 % (36.0-66.0); PLATELET COUNT, AUTOMATED 364 10^3/uL (150-450); RED BLOOD COUNT 4.02 10^6/uL (4.00-5.40)
[2023-07-02 08:42] LABS: CALCIUM LEVEL 8.3 MG/DL (8.5-10.1); CREATININE FOR GFR 1.5 MG/DL (0.55-1.30); GLOMERULAR FILTRATION RATE 38.2 (>51); POTASSIUM SERUM 4.6 MMOL/L (3.5-5.1)
[2023-07-02] MEDS ORDERED: VANCOMYCIN HCL 750 MG, VIAL MATE ADAPTER 1 EACH in D5W 250 ML IV SCH (09:00)
[2023-07-02] MEDS: TORSEMIDE (DEMADEX) 50 MG PER 1/2 TAB PO SCH (09:13)
[2023-07-02] MEDS: OMEPRAZOLE 20MG CAP PO SCH (09:13)
[2023-07-02] MEDS: SERTRALINE 100 MG TAB PO SCH (09:13)
[2023-07-02] MEDS: LEVOTHYROXINE 50MCG TABLET (0.05MG) PO SCH (09:13)
[2023-07-02] MEDS: ASPIRIN 81MG ENTERIC TABLET PO SCH (09:13)
[2023-07-02 09:14] VITALS: BP 135/94
[2023-07-02] MEDS: MAGNESIUM OXIDE 400MG TAB (MAG-OX) PO SCH (09:14)
[2023-07-02] MEDS: MONTELUKAST 10 MG TAB PO SCH (09:14)
[2023-07-02] MEDS: POTASSIUM CHLORIDE 10MEQ SR TABLET PO SCH (09:14)
[2023-07-02] MEDS: CARVedilol 3.125 MG TAB PO SCH (09:14)
[2023-07-02] MEDS: CETIRIZINE (ZyrTEC) 10 MG TAB PO SCH (09:14)
[2023-07-02] MEDS: SERTRALINE HCL 50 MG TAB PO SCH (09:14)
[2023-07-02] MEDS: GABAPENTIN 100 MG CAP PO SCH (09:15)
[2023-07-02] MEDS: GABAPENTIN 400MG CAP PO SCH (09:15)
[2023-07-02] MEDS: allopurinoL 300 MG TAB PO SCH (09:15)
[2023-07-02] MEDS: SPIRONOLACTONE 50 MG TAB PO SCH (09:15)
[2023-07-02] MEDS: INSULIN LISPRO (NovoLOG) PER UNIT SC SCH ×2 (09:16→12:00)
[2023-07-02] MEDS ORDERED: TORS100T PO (11:03)
[2023-07-02] MEDS ORDERED: ALDA50TA2 PO (11:03)
[2023-07-02] MEDS ORDERED: POTA-136 PO (11:04)
[2023-07-02] MEDS ORDERED: OXYC-517 PO (11:06)
[2023-07-02] MEDS ORDERED: SODIUM CHLORIDE 0.9% INJ 10 ML SYR IV PRN (11:50)
[2023-07-02 14:00] VITALS: BP 139/86; TEMP 97.3; O2SAT 97
== END 2023-07-02 18:12 | disposition home or self-care (01) | DRG 854 ==
LOC: M ED 09:21 → M ED INP 13:44 → ENRESERV 06-25 02:07 → M MS5PR 06-25 02:33
PROVIDERS: ADMIT Internal Medicine; ATTEND Internal Medicine Nephrology
PROC: 0PB90ZX Excision of Right Clavicle, Open Approach, Diagnostic (ICD-10-PCS; principal; 2023-06-25)
PROC: 0RBJ4ZZ Excision of Right Shoulder Joint, Percutaneous Endoscopic Approach (ICD-10-PCS; 2023-06-25)
PROC: 0RBJ0ZZ Excision of Right Shoulder Joint, Open Approach (ICD-10-PCS; 2023-06-25)
DX: A41.9 Sepsis, unspecified organism (principal); M00.811 Arthritis due to other bacteria, right shoulder; N17.9 Acute kidney failure, unspecified; M86.111 Other acute osteomyelitis, right shoulder; N18.30 Chronic kidney disease, stage 3 unspecified; E83.42 Hypomagnesemia; E87.6 Hypokalemia; M10.9 Gout, unspecified; E78.5 Hyperlipidemia, unspecified; I12.9 Hypertensive chronic kidney disease with stage 1 through stage 4 chronic kidney disease, or unspecified chronic kidney disease; E66.9 Obesity, unspecified; H40.9 Unspecified glaucoma; J44.9 Chronic obstructive pulmonary disease, unspecified; I87.8 Other specified disorders of veins; K21.9 Gastro-esophageal reflux disease without esophagitis; E21.3 Hyperparathyroidism, unspecified; E11.40 Type 2 diabetes mellitus with diabetic neuropathy, unspecified; Z88.2 Allergy status to sulfonamides; Z88.8 Allergy status to other drugs, medicaments and biological substances; Z88.5 Allergy status to narcotic agent; Z79.82 Long term (current) use of aspirin; Z79.899 Other long term (current) drug therapy; F17.200 Nicotine dependence, unspecified, uncomplicated; Z66 Do not resuscitate; E03.9 Hypothyroidism, unspecified

== ENCOUNTER → 2023-07-08 | Outpatient (CLI) | payer OTHER ==
[~2023-07-08] MED LIST changes: +ALBU8.5H INH; +ALDA50TA2 PO; +FLUC150T9 PO; +JARD1TAB PO; +LISI5TAB11 PO; +OXYC-517 PO; +POTA-136 PO; +SERT50TA29 PO
[2023-07-08 16:33] LABS: CALCIUM LEVEL 9.4 MG/DL (8.5-10.1); CREATININE FOR GFR 2.34 MG/DL (0.55-1.30); GLOMERULAR FILTRATION RATE 22.9 (>51)
== END ==
LOC: M LAB 14:55
PROVIDERS: ATTEND Student in an Organized Health Care Education/Training Program
DX: M00.811 Arthritis due to other bacteria, right shoulder (principal)

== ENCOUNTER → 2023-07-09 | Outpatient (CLI) | payer OTHER ==
[2023-07-09 13:21] LABS: CALCIUM LEVEL 8.6 MG/DL (8.5-10.1); CREATININE FOR GFR 2.68 MG/DL (0.55-1.30); GLOMERULAR FILTRATION RATE 19.6 (>51); POTASSIUM SERUM 5.2 MMOL/L (3.5-5.1); VANCOMYCIN LEVEL TROUGH 18.8 UG/ML (10.0-20.0)
== END ==
LOC: M PLALAB 10:50
PROVIDERS: ATTEND Internal Medicine Infectious Disease
DX: M00.811 Arthritis due to other bacteria, right shoulder (principal)

== ENCOUNTER → 2023-07-09 | Outpatient (REF) | payer OTHER | LOC: M SFHCPLAZ 14:17 | PROVIDERS: ATTEND Student in an Organized Health Care Education/Training Program | DX: Z53.9 Procedure and treatment not carried out, unspecified reason (principal) ==

== ENCOUNTER → 2023-07-10 | Outpatient (CLI) | payer OTHER ==
[2023-07-10 11:23] LABS: VANCOMYCIN RANDOM 15.3 UG/ML
[2023-07-10 11:24] LABS: CALCIUM LEVEL 9.1 MG/DL (8.5-10.1); CREATININE FOR GFR 2.81 MG/DL (0.55-1.30); GLOMERULAR FILTRATION RATE 18.5 (>51); POTASSIUM SERUM 5.3 MMOL/L (3.5-5.1)
== END ==
LOC: M LAB 09:19
PROVIDERS: ATTEND Student in an Organized Health Care Education/Training Program
DX: R79.89 Other specified abnormal findings of blood chemistry (principal)

== ENCOUNTER → 2023-07-12 | Outpatient (REF) | payer OTHER ==
[2023-07-12 12:54] LABS: BASO # 0.1 10^3/uL (0.0-0.2); BASO % 0.5 % (0.0-1.0); EOS # 0.3 10^3/uL (0.0-0.5); EOS % 2.1 % (0.0-3.0); HEMATOCRIT 38.1 % (36.0-47.0); HEMOGLOBIN 12.2 g/dl (12.0-15.5); LYMPH # 2.5 10^3/uL (1.5-5.0); LYMPH % 19.2 % (24.0-44.0); MEAN CORPUSCULAR HEMOGLOBIN 29.9 pg (27.0-33.0); MEAN CORPUSCULAR VOLUME 93.4 fl (80.0-96.0); MONO % 7.2 % (2.0-8.0); NEUTROPHILS # 9.4 10^3/uL (1.5-8.5); NEUTROPHILS % 70.5 % (36.0-66.0); PLATELET COUNT, AUTOMATED 389 10^3/uL (150-450); RED BLOOD COUNT 4.08 10^6/uL (4.00-5.40); WHITE BLOOD COUNT 13.2 10^3/uL (4.0-10.0)
[2023-07-12 13:15] LABS: ERYTHROCYTE SEDIMENTATION RATE > 130 mm/hr (0-30)
[2023-07-12 13:20] LABS: C REACTIVE PROTEIN QUANTITATIV 3.7 MG/DL (<1.0)
[2023-07-12 13:21] LABS: VANCOMYCIN RANDOM 9.2 UG/ML
[2023-07-12 13:22] LABS: CALCIUM LEVEL 8.9 MG/DL (8.5-10.1); CREATININE FOR GFR 2.39 MG/DL (0.55-1.30); GLOMERULAR FILTRATION RATE 22.3 (>51); POTASSIUM SERUM 5.1 MMOL/L (3.5-5.1)
== END ==
LOC: M LAB REF 11:42
PROVIDERS: ATTEND Internal Medicine Infectious Disease
DX: M00.811 Arthritis due to other bacteria, right shoulder (principal); M25.411 Effusion, right shoulder

== ENCOUNTER → 2023-08-02 | Outpatient (CLI) | payer OTHER ==
[2023-08-02 16:21] LABS: BASO % 0.4 % (0.0-1.0); EOS # 0.4 10^3/uL (0.0-0.5); EOS % 3.4 % (0.0-3.0); HEMATOCRIT 40.5 % (36.0-47.0); HEMOGLOBIN 12.7 g/dl (12.0-15.5); LYMPH % 27.9 % (24.0-44.0); MEAN CORPUSCULAR HEMOGLOBIN 29.7 pg (27.0-33.0); MEAN CORPUSCULAR HGB CONC 31.4 g/dl (32.0-36.5); MEAN CORPUSCULAR VOLUME 94.8 fl (80.0-96.0); MONO # 0.8 10^3/uL (0.0-0.8); MONO % 7.5 % (2.0-8.0); NEUTROPHILS # 6.6 10^3/uL (1.5-8.5); NEUTROPHILS % 60.5 % (36.0-66.0); PLATELET COUNT, AUTOMATED 358 10^3/uL (150-450); RED BLOOD COUNT 4.27 10^6/uL (4.00-5.40); WHITE BLOOD COUNT 10.9 10^3/uL (4.0-10.0)
[2023-08-02 16:27] LABS: CREATININE FOR GFR 1.55 MG/DL (0.55-1.30); GLOMERULAR FILTRATION RATE 36.8 (>51); POTASSIUM SERUM 4.8 MMOL/L (3.5-5.1)
[2023-08-02 17:21] LABS: ERYTHROCYTE SEDIMENTATION RATE 105 mm/hr (0-30)
== END ==
LOC: M PLALAB 13:29
PROVIDERS: ATTEND Internal Medicine Infectious Disease
DX: M86.9 Osteomyelitis, unspecified (principal)
CPT/HCPCS: 36415; 80048; 85025; 85652; 86140; G0463

== ENCOUNTER 2023-08-05 13:58 | Outpatient (RCR) | payer OTHER | END 2023-08-26 | LOC: M PT 13:58 | PROVIDERS: ATTEND Orthopaedic Surgery | DX: M25.511 Pain in right shoulder (principal) ==

== ENCOUNTER → 2023-09-10 | Outpatient (REF) | payer OTHER | LOC: M LAB REF 12:55 | PROVIDERS: ATTEND Nurse Practitioner Family | DX: R80.9 Proteinuria, unspecified (principal) ==

== ENCOUNTER → 2023-09-10 | Outpatient (REF) | payer OTHER ==
[2023-09-10 14:15] LABS: BASO # 0.1 10^3/uL (0.0-0.2); BASO % 0.5 % (0.0-1.0); EOS # 0.4 10^3/uL (0.0-0.5); EOS % 3.4 % (0.0-3.0); HEMATOCRIT 43.3 % (36.0-47.0); HEMOGLOBIN 13.4 g/dl (12.0-15.5); LYMPH # 2.8 10^3/uL (1.5-5.0); MEAN CORPUSCULAR HEMOGLOBIN 29.3 pg (27.0-33.0); MEAN CORPUSCULAR HGB CONC 30.9 g/dl (32.0-36.5); MEAN CORPUSCULAR VOLUME 94.5 fl (80.0-96.0); MONO # 0.8 10^3/uL (0.0-0.8); MONO % 6.3 % (2.0-8.0); NEUTROPHILS % 66.4 % (36.0-66.0); PLATELET COUNT, AUTOMATED 343 10^3/uL (150-450); RED BLOOD COUNT 4.58 10^6/uL (4.00-5.40); WHITE BLOOD COUNT 12.1 10^3/uL (4.0-10.0)
[2023-09-10 14:40] LABS: ERYTHROCYTE SEDIMENTATION RATE 108 mm/hr (0-30)
== END ==
LOC: M LAB REF 12:53
PROVIDERS: ATTEND Internal Medicine Infectious Disease
DX: M86.9 Osteomyelitis, unspecified (principal)

== ENCOUNTER → 2023-10-18 | Outpatient (CLI) | payer OTHER ==
[2023-10-18 16:33] LABS: BASO % 0.4 % (0.0-1.0); EOS # 0.4 10^3/uL (0.0-0.5); EOS % 3.9 % (0.0-3.0); HEMATOCRIT 45.1 % (36.0-47.0); HEMOGLOBIN 13.7 g/dl (12.0-15.5); LYMPH # 2.4 10^3/uL (1.5-5.0); LYMPH % 24.4 % (24.0-44.0); MEAN CORPUSCULAR HEMOGLOBIN 28.1 pg (27.0-33.0); MEAN CORPUSCULAR HGB CONC 30.4 g/dl (32.0-36.5); MEAN CORPUSCULAR VOLUME 92.4 fl (80.0-96.0); MONO # 0.9 10^3/uL (0.0-0.8); MONO % 8.6 % (2.0-8.0); NEUTROPHILS # 6.1 10^3/uL (1.5-8.5); NEUTROPHILS % 62.4 % (36.0-66.0); PLATELET COUNT, AUTOMATED 365 10^3/uL (150-450); RED BLOOD COUNT 4.88 10^6/uL (4.00-5.40); WHITE BLOOD COUNT 9.8 10^3/uL (4.0-10.0)
[2023-10-18 16:43] LABS: ERYTHROCYTE SEDIMENTATION RATE 111 mm/hr (0-30)
[2023-10-18 16:49] LABS: C REACTIVE PROTEIN QUANTITATIV 1.7 MG/DL (<1.0)
[2023-10-18 16:50] LABS: CALCIUM LEVEL 8.9 MG/DL (8.5-10.1); CREATININE FOR GFR 1.56 MG/DL (0.55-1.30); GLOMERULAR FILTRATION RATE 36.5 (>51); POTASSIUM SERUM 3.7 MMOL/L (3.5-5.1)
== END ==
LOC: M PLALAB 13:01
PROVIDERS: ATTEND Internal Medicine Infectious Disease
DX: M86.9 Osteomyelitis, unspecified (principal)
CPT/HCPCS: 36415; 80048; 85025; 85652; 86140; G0463

== ENCOUNTER 2023-11-01 07:09 | Observation (INO) | payer OTHER ==
[~2023-11-01] VITALS: Ht 154.9 cm; Wt 96.0 kg
[2023-11-01] MEDS: NS 1,000 ML IV ONE (07:45)
[2023-11-01 08:08] LABS: BASO # 0.1 10^3/uL (0.0-0.2); BASO % 0.5 % (0.0-1.0); EOS # 0.1 10^3/uL (0.0-0.5); EOS % 1.4 % (0.0-3.0); HEMATOCRIT 49.6 % (36.0-47.0); HEMOGLOBIN 15.5 g/dl (12.0-15.5); LYMPH # 2.7 10^3/uL (1.5-5.0); LYMPH % 27.7 % (24.0-44.0); MEAN CORPUSCULAR HEMOGLOBIN 28.1 pg (27.0-33.0); MEAN CORPUSCULAR HGB CONC 31.3 g/dl (32.0-36.5); MEAN CORPUSCULAR VOLUME 89.9 fl (80.0-96.0); MONO # 0.8 10^3/uL (0.0-0.8); MONO % 8.6 % (2.0-8.0); NEUTROPHILS # 5.9 10^3/uL (1.5-8.5); PLATELET COUNT, AUTOMATED 341 10^3/uL (150-450); RED BLOOD COUNT 5.52 10^6/uL (4.00-5.40); WHITE BLOOD COUNT 9.7 10^3/uL (4.0-10.0)
[2023-11-01 08:42] LABS: ALBUMIN 3.2 G/DL (3.2-5.2); BILIRUBIN,DIRECT 0.1 MG/DL (<0.4); BILIRUBIN,TOTAL 0.3 MG/DL (0.3-1.2); CALCIUM LEVEL 9.4 MG/DL (8.5-10.1); CREATININE FOR GFR 1.22 MG/DL (0.55-1.30); GLOMERULAR FILTRATION RATE 48.5 (>51); POTASSIUM SERUM 3.2 MMOL/L (3.5-5.1); TOTAL PROTEIN 7.6 G/DL (5.7-8.2)
[2023-11-01 08:43] LABS: THYROID STIMULATING HORMONE 5.394 uIU/ML (0.55-4.78)
[2023-11-01 08:44] LABS: FREE T4 1.34 NG/DL (0.89-1.76)
[2023-11-01 08:55] LABS: RSV AMPLIFICATION NEGATIVE (NEGATIVE)
[2023-11-01] MEDS ORDERED: ISOVUE-370 76% 100ML VIAL As Ordered ONE (09:13)
[2023-11-01] MEDS: LIDOCAINE 2% 5ML JELLY UROJET TOP ONE (09:15)
[2023-11-01] MEDS: POTASSIUM CHLORIDE 10MEQ SR TABLET PO ONE (09:55)
[2023-11-01] MEDS: SPIRONOLACTONE 50 MG TAB PO STA (10:18)
[2023-11-01] MEDS: CARVedilol 3.125 MG TAB PO ONE (10:20)
[2023-11-01] MEDS: FOSFOMYCIN TROMETHAMINE 3 GM POWDER PACKET (MONUROL) PO ONE (11:30)
[2023-11-01] MEDS: D5W/0.45% SODIUM CHLORIDE 1,000 ML IV ONE (12:30)
[2023-11-01] MEDS ORDERED: GLUCOSE 4GM CHEW TABLET PO PRN (12:50)
[2023-11-01] MEDS ORDERED: DEXTROSE 50% 50ML SYRINGE IV PRN (12:50)
[2023-11-01] MEDS ORDERED: GLUCAGON INJ 1MG VIAL SC PRN (12:50)
[2023-11-01] MEDS: NS 1,000 ML IV SCH (12:55)
[2023-11-01 14:00] VITALS: BP 200/116; TEMP 97.7; O2SAT 99
[2023-11-01] MEDS: **hydrALAZINE** 50 MG TAB PO SCH (14:21)
[2023-11-01] MEDS: cloNIDine 0.1MG TABLET PO ONE (14:21)
[2023-11-01] MEDS ORDERED: DRON5CAP13 PO (15:26)
[2023-11-01] MEDS ORDERED: VITA100093 PO (15:26)
[2023-11-01] MEDS ORDERED: ERGO500029 PO (15:26)
[2023-11-01] MEDS ORDERED: TORS20TA2 PO ×2 (15:26)
[2023-11-01] MEDS ORDERED: OXYB-54 PO (15:26)
[2023-11-01 15:30] VITALS: BP 152/93
[2023-11-01] MEDS ORDERED: HOME MED LIST COMPLETE! XX SCH (15:35)
[2023-11-01 15:39] LABS: IMMUNOGLOBULIN A 406.2 MG/DL (40-350)
[2023-11-01] MEDS ORDERED: ALBUTEROL 90 MCG/ACT 8GM HFA INHALER INH PRN (16:30)
[2023-11-01] MEDS: INSULIN LISPRO (NovoLOG) PER UNIT SC SCH (17:12)
[2023-11-01] MEDS ORDERED: diphenhydrAMINE 50MG/ML VIAL IV PRN (17:20)
[2023-11-01] MEDS: AZITHROMYCIN 250MG TABLET PO SCH (20:13)
[2023-11-01 20:16] VITALS: BP 142/95; TEMP 97.9; O2SAT 96
[2023-11-01] MEDS: HEPARIN SOD (PORCINE) 5000UNITS/ML 1ML VIAL/SYRINGE SQ SCH (21:00)
[2023-11-01] MEDS: cloNIDine 0.1MG TABLET PO SCH (21:00)
[2023-11-01] MEDS: OMEPRAZOLE 20MG CAP PO SCH (21:16)
[2023-11-01] MEDS: POTASSIUM CHLORIDE 10MEQ SR TABLET PO SCH (21:16)
[2023-11-01] MEDS: CARVedilol 3.125 MG TAB PO SCH (21:17)
[2023-11-02] VITALS (7 sets, daily range): BP systolic 144–195; BP diastolic 85–103; TEMP 97.7–98.1; O2SAT 97
[2023-11-02 06:05] LABS: BASO % 0.3 % (0.0-1.0); EOS # 0.2 10^3/uL (0.0-0.5); EOS % 1.9 % (0.0-3.0); LYMPH # 2.4 10^3/uL (1.5-5.0); LYMPH % 27.3 % (24.0-44.0); MEAN CORPUSCULAR HEMOGLOBIN 28.8 pg (27.0-33.0); MEAN CORPUSCULAR HGB CONC 31.6 g/dl (32.0-36.5); MEAN CORPUSCULAR VOLUME 91.3 fl (80.0-96.0); MONO # 0.9 10^3/uL (0.0-0.8); MONO % 10.4 % (2.0-8.0); NEUTROPHILS # 5.2 10^3/uL (1.5-8.5); NEUTROPHILS % 59.2 % (36.0-66.0); PLATELET COUNT, AUTOMATED 273 10^3/uL (150-450); RED BLOOD COUNT 4.58 10^6/uL (4.00-5.40); WHITE BLOOD COUNT 8.8 10^3/uL (4.0-10.0)
[2023-11-02] MEDS: LEVOTHYROXINE 50MCG TABLET (0.05MG) PO SCH (06:09)
[2023-11-02 06:18] LABS: HEMATOCRIT 41.8 % (36.0-47.0); HEMOGLOBIN 13.2 g/dl (12.0-15.5)
[2023-11-02 06:31] LABS: CALCIUM LEVEL 8.7 MG/DL (8.5-10.1); CREATININE FOR GFR 1.14 MG/DL (0.55-1.30); GLOMERULAR FILTRATION RATE 52.5 (>51); POTASSIUM SERUM 3.9 MMOL/L (3.5-5.1)
[2023-11-02] MEDS: ASPIRIN 81MG ENTERIC TABLET PO SCH (08:21)
[2023-11-02] MEDS: allopurinoL 300 MG TAB PO SCH (08:23)
[2023-11-02] MEDS: MONTELUKAST 10 MG TAB PO SCH (08:23)
[2023-11-02] MEDS: SERTRALINE 100 MG TAB PO SCH (08:41)
[2023-11-02] MEDS: MAGNESIUM OXIDE 400MG TAB (MAG-OX) PO SCH (14:07)
[2023-11-02] MEDS: oxyBUTYnin *DITROPAN XL* 5 MG TABCR PO SCH (14:07)
[2023-11-02] MEDS: ROSUVASTATIN 10 MG TAB (CRESTOR) PO SCH (14:07)
[2023-11-02] MEDS: CINACALCET 30 MG TAB (SENSIPAR) PO SCH (14:08)
[2023-11-02] MEDS: GABAPENTIN 100 MG CAP PO SCH (14:08)
[2023-11-02] MEDS: VITAMIN D 1,000 INTERNATIONAL UNITS TABLET PO SCH (14:08)
[2023-11-02] MEDS: SERTRALINE HCL 50 MG TAB PO ONE (14:08)
[2023-11-02] MEDS: GABAPENTIN 400MG CAP PO SCH (14:08)
[2023-11-02] MEDS: CETIRIZINE (ZyrTEC) 10 MG TAB PO SCH (14:19)
[2023-11-02] MEDS: **hydrALAZINE** 50 MG TAB PO ONE (15:18)
[2023-11-02] MEDS: AZITHROMYCIN 250MG TABLET PO SCH (16:33)
[2023-11-02] MEDS: LACTOBACILLUS ACIDOPHILUS CAP (BACID) PO SCH (18:06)
[2023-11-02] MEDS: CARVedilol 6.25 MG TAB PO SCH (21:04)
[2023-11-02] MEDS: PINK BISMUTH SUSP 524MG/30ML ORAL SYRINGE PO SCH (21:07)
[2023-11-03 05:46] LABS: BASO % 0.2 % (0.0-1.0); EOS # 0.1 10^3/uL (0.0-0.5); EOS % 1.2 % (0.0-3.0); HEMATOCRIT 40.8 % (36.0-47.0); HEMOGLOBIN 12.6 g/dl (12.0-15.5); LYMPH # 2.8 10^3/uL (1.5-5.0); LYMPH % 23.3 % (24.0-44.0); MEAN CORPUSCULAR HEMOGLOBIN 28.1 pg (27.0-33.0); MEAN CORPUSCULAR HGB CONC 30.9 g/dl (32.0-36.5); MEAN CORPUSCULAR VOLUME 91.1 fl (80.0-96.0); MONO % 8.5 % (2.0-8.0); NEUTROPHILS # 7.9 10^3/uL (1.5-8.5); NEUTROPHILS % 65.7 % (36.0-66.0); PLATELET COUNT, AUTOMATED 262 10^3/uL (150-450); RED BLOOD COUNT 4.48 10^6/uL (4.00-5.40); WHITE BLOOD COUNT 12.1 10^3/uL (4.0-10.0)
[2023-11-03 06:03] VITALS: BP 127/74; TEMP 98.1; O2SAT 95
[2023-11-03 06:03] LABS: CALCIUM LEVEL 7.6 MG/DL (8.5-10.1); CREATININE FOR GFR 1.22 MG/DL (0.55-1.30); GLOMERULAR FILTRATION RATE 48.5 (>51); POTASSIUM SERUM 3.7 MMOL/L (3.5-5.1)
[2023-11-03] MEDS: cloNIDine 0.1MG TABLET PO SCH (09:00)
[2023-11-03] MEDS: SERTRALINE HCL 50 MG TAB PO SCH (09:42)
[2023-11-03 09:43] VITALS: BP 149/92
[2023-11-03] MEDS ORDERED: AZIT-12 PO (10:51)
[2023-11-03] MEDS ORDERED: CLONI1TA PO (10:51)
[2023-11-04 16:09] LABS: IgG SERUM (part of Subclasses) 590 mg/dL (586-1602); IgG Subclass 1 464 mg/dL (248-810); IgG Subclass 2 188 mg/dL (130-555); IgG Subclass 3 60 mg/dL (15-102); IgG Subclass 4 31 mg/dL (2-96)
== END 2023-11-03 12:00 | disposition home or self-care (01) ==
LOC: M ED 07:09 → M ED INP 12:47 → M MSPAV 13:29
PROVIDERS: ADMIT Internal Medicine Nephrology; ATTEND Student in an Organized Health Care Education/Training Program
DX: A04.5 Campylobacter enteritis (principal); E87.6 Hypokalemia; N17.9 Acute kidney failure, unspecified; E86.0 Dehydration; I16.0 Hypertensive urgency; E11.9 Type 2 diabetes mellitus without complications; E66.01 Morbid (severe) obesity due to excess calories; I10 Essential (primary) hypertension; J44.9 Chronic obstructive pulmonary disease, unspecified; E78.5 Hyperlipidemia, unspecified; Z88.2 Allergy status to sulfonamides; Z91.018 Allergy to other foods; Z88.0 Allergy status to penicillin
CPT/HCPCS: 36415; 71045; 74177; 80047; 80048; 80076; 81001; 82150; 82784; 82787; 83605; 83690; 83735; 84439; 84443; 85025; 87040; 87507; 87631; 93005; 93041; 96361; 96374; 96376; 99285; Q9967

== ENCOUNTER 2023-12-10 11:22 | Emergency (ER) | payer OTHER ==
[~2023-12-10] VITALS: Ht 154.9 cm; Wt 100.0 kg
[~2023-12-10 11:22] MED LIST changes: +AZIT-12 PO; +CLONI1TA PO; +DRON5CAP13 PO; +ERGO500029 PO; +OXYB-54 PO; +VITA100093 PO
[2023-12-10 11:23] VITALS: BP 183/92; TEMP 96.6; O2SAT 98
[2023-12-10] MEDS: ACETAMINOPHEN TAB 650MG DOSE (2X325MG) PO ONE (13:15)
== END 2023-12-10 14:06 | disposition home or self-care (01) ==
LOC: M ED 11:22
DX: S52.121A Displaced fracture of head of right radius, initial encounter for closed fracture (principal); W01.0XXA Fall on same level from slipping, tripping and stumbling without subsequent striking against object, initial encounter; I10 Essential (primary) hypertension; E03.9 Hypothyroidism, unspecified; F17.200 Nicotine dependence, unspecified, uncomplicated; Z86.73 Personal history of transient ischemic attack (TIA), and cerebral infarction without residual deficits; Y92.009 Unspecified place in unspecified non-institutional (private) residence as the place of occurrence of the external cause; Y93.9 Activity, unspecified; Y99.9 Unspecified external cause status; Z88.1 Allergy status to other antibiotic agents; Z88.2 Allergy status to sulfonamides; Z88.5 Allergy status to narcotic agent; Z91.048 Other nonmedicinal substance allergy status; Z79.52 Long term (current) use of systemic steroids; Z79.82 Long term (current) use of aspirin; Z79.891 Long term (current) use of opiate analgesic; Z79.811 Long term (current) use of aromatase inhibitors; Z79.899 Other long term (current) drug therapy

== ENCOUNTER → 2023-12-16 | Outpatient (CLI) | payer OTHER | LOC: M SOG 09:55 | PROVIDERS: ATTEND Physician Assistant | DX: M25.532 Pain in left wrist (principal) ==

== ENCOUNTER → 2023-12-17 | Outpatient (CLI) | payer OTHER | LOC: M PLAIMG 11:46 | PROVIDERS: ATTEND Physician Assistant | DX: M19.011 Primary osteoarthritis, right shoulder (principal); M67.813 Other specified disorders of tendon, right shoulder; M25.521 Pain in right elbow; M79.601 Pain in right arm ==

== ENCOUNTER → 2024-01-13 | Outpatient (CLI) | payer OTHER | LOC: M SOG 10:05 | PROVIDERS: ATTEND Physician Assistant | DX: M25.521 Pain in right elbow (principal) ==

== ENCOUNTER → 2024-01-31 | Outpatient (CLI) | payer OTHER | LOC: M RAD 14:20 | PROVIDERS: ATTEND Internal Medicine | DX: M46.1 Sacroiliitis, not elsewhere classified (principal) ==

== ENCOUNTER → 2024-08-10 | Outpatient (REF) | payer OTHER ==
[~2024-08-10] MED LIST changes: +CETI-24 PO; +ROSU20TA86 PO; +SPIR100T3 PO; +SYNT50TA PO
[2024-08-16 13:08] LABS: UR HYDROCODONE 88 ng/mL (.); UR HYDROMORPHONE Negative (.)
== END ==
LOC: M LAB REF 17:29
PROVIDERS: ATTEND Nurse Practitioner Family
DX: Z79.891 Long term (current) use of opiate analgesic (principal)

== ENCOUNTER → 2024-09-13 | Outpatient (CLI) | payer OTHER | LOC: M WHC 14:26 | PROVIDERS: ATTEND Internal Medicine | DX: Z12.31 Encounter for screening mammogram for malignant neoplasm of breast (principal) ==

== ENCOUNTER → 2024-10-04 | Outpatient (CLI) | payer OTHER | LOC: M RAD 15:18 | PROVIDERS: ATTEND Internal Medicine | DX: Z12.2 Encounter for screening for malignant neoplasm of respiratory organs (principal); F17.210 Nicotine dependence, cigarettes, uncomplicated ==

== ENCOUNTER 2024-11-15 10:57 | Inpatient (IN) | payer OTHER ==
[2024-11-15 12:03] LABS: BASO % 0.2 % (0.0-1.0); EOS # 0.2 10^3/uL (0.0-0.5); EOS % 1.6 % (0.0-3.0); HEMATOCRIT 43.6 % (36.0-47.0); HEMOGLOBIN 13.8 g/dl (12.0-15.5); LYMPH # 2.4 10^3/uL (1.5-5.0); LYMPH % 20.3 % (24.0-44.0); MEAN CORPUSCULAR HGB CONC 31.7 g/dl (32.0-36.5); MEAN CORPUSCULAR VOLUME 91.6 fl (80.0-96.0); MONO # 0.7 10^3/uL (0.0-0.8); MONO % 5.5 % (2.0-8.0); NEUTROPHILS # 8.5 10^3/uL (1.5-8.5); PLATELET COUNT, AUTOMATED 210 10^3/uL (150-450); RED BLOOD COUNT 4.76 10^6/uL (4.00-5.40); WHITE BLOOD COUNT 11.8 10^3/uL (4.0-10.0)
[2024-11-15] MEDS: NS (Normal Saline) 0.9% 1,000 ML IV ONE (12:15)
[2024-11-15 12:46] LABS: ALBUMIN 3.6 G/DL (3.2-5.2); ALKALINE PHOSPHATASE 126 U/L (35-104); ALT/SGPT 19 U/L (7.0-40); AST/SGOT 19 U/L (<34); BILIRUBIN,DIRECT < 0.1 MG/DL (<0.4); BILIRUBIN,TOTAL 0.2 MG/DL (0.3-1.2); BLOOD UREA NITROGEN 150 MG/DL (9-23); CALCIUM LEVEL 8.5 MG/DL (8.5-10.1); CARBON DIOXIDE LEVEL 17 MMOL/L (20-31); CHLORIDE LEVEL 103 MMOL/L (98-107); CK-MB VALUE MASS 2.1 NG/ML (<3.6); CPK CREATINE PHOSPHOKINASE 91 U/L (34-145); CREATININE FOR GFR 7.48 MG/DL (0.55-1.30); GLUCOSE, FASTING 105 MG/DL (60-100); MAGNESIUM LEVEL 3.1 MG/DL (1.8-2.4); PHOSPHORUS LEVEL 10.1 MG/DL (2.5-4.9); SODIUM LEVEL 135 MMOL/L (136-145); TOTAL PROTEIN 7.6 G/DL (5.7-8.2)
[2024-11-15] MEDS: SODIUM BICARBONATE 8.4% INJ 50ML SYRINGE IV ONE (13:13)
[2024-11-15] MEDS: HumuLIN R (REGULAR) INSULIN (NovoLIN R) **100U/ML** PER UNIT IV ONE (13:14)
[2024-11-15] MEDS: CALCIUM GLUCONATE 1,000MG/10ML VIAL (100MG/ML) IV ONE (13:14)
[2024-11-15] MEDS: DEXTROSE 50% 50ML SYRINGE IV ONE (13:16)
[2024-11-15 13:17] LABS: CK-MB VALUE MASS 2.6 NG/ML (<3.6)
[2024-11-15 13:18] LABS: CPK CREATINE PHOSPHOKINASE 82 U/L (34-145); MB/CK RELATIVE INDEX 3.17 (< OR =4)
[2024-11-15] MEDS ORDERED: FLUC150T9 PO (13:21)
[2024-11-15] MEDS ORDERED: ROSU40TA81 PO (13:21)
[2024-11-15] MEDS ORDERED: HOME MED LIST COMPLETE! XX SCH (13:25)
[2024-11-15] MEDS ORDERED: ASPI81TA26 PO (13:26)
[2024-11-15] MEDS: PATIROMER SORBITEX CALCIUM 8.4 GM POWDER PACKET (VELTASSA) PO ONE ×2 (13:35→17:30)
[2024-11-15 13:39] LABS: APPEARANCE, URINE CLEAR (CLEAR); BACTERIA, URINE AUTO 1+ (NEGATIVE); BILIRUBIN, URINE AUTO NEGATIVE (NEGATIVE); BLOOD, URINE BLOOD 1+ (NEGATIVE); COLOR, URINE STRAW (YELLOW); GLUCOSE, URINE (UA) AUTO 2+ mg/dL (NEGATIVE); KETONE, URINE AUTO NEGATIVE (NEGATIVE); LEUKOCYTE ESTERASE, URINE AUTO NEGATIVE (NEGATIVE); NITRITE, URINE AUTO NEGATIVE (NEGATIVE); PROTEIN, URINE AUTO 1+ mg/dL (NEGATIVE); RBC, URINE AUTO 1 /HPF (0-3); SPECIFIC GRAVITY URINE AUTO 1.006 (1.002-1.035); SQUAMOUS EPITHELIAL CELL UR AU 1 /HPF (0-6); UROBILINOGEN, URINE AUTO 0.2 mg/dL (0.0-2.0); WBC, URINE AUTO 3 /HPF (0-3)
[2024-11-15] MEDS: ALBUTEROL SULFATE 2.5MG/0.5ML INH NEB SOLN INH ONE (14:29)
[2024-11-15] MEDS ORDERED: ONDANSETRON 4MG 2ML VIAL IV PRN ×2 (14:35→15:05)
[2024-11-15] MEDS ORDERED: GLUCOSE 4 GM CHEW PO PRN (14:35)
[2024-11-15] MEDS ORDERED: ACETAMINOPHEN 325 MG TAB PO PRN (14:35)
[2024-11-15] MEDS ORDERED: DEXTROSE 50% 50ML SYRINGE IV PRN (14:35)
[2024-11-15] MEDS ORDERED: GLUCAGON INJ 1MG VIAL SC PRN (14:35)
[2024-11-15] MEDS ORDERED: ALBUTEROL 90 MCG/ACT 8GM HFA INHALER INH PRN (15:20)
[2024-11-15] MEDS ORDERED: LIDOCAINE 5% (LIDODERM) PATCH TOP PRN (15:20)
[2024-11-15] MEDS ORDERED: FLUCONAZOLE 50MG TABLET PO PRN (15:20)
[2024-11-15 15:38] LABS: INR 1.02; PARTIAL THROMBOPLASTIN TIME 31.9 SECONDS (24.8-34.2); PROTHROMBIN TIME 13.7 SECONDS (12.5-14.5)
[2024-11-15 16:02] LABS: ALBUMIN 3.2 G/DL (3.2-5.2); BILIRUBIN,TOTAL 0.2 MG/DL (0.3-1.2); CALCIUM LEVEL 8.7 MG/DL (8.5-10.1); CREATININE FOR GFR 6.86 MG/DL (0.55-1.30); GLOMERULAR FILTRATION RATE 6.6 (>51); POTASSIUM SERUM 6.4 MMOL/L (3.5-5.1); TOTAL PROTEIN 6.9 G/DL (5.7-8.2)
[2024-11-15] MEDS: PANTOPRAZOLE 40MG VIAL IV SCH (16:19)
[2024-11-15] MEDS: SODIUM BICARBONATE 75 MEQ in NS 0.45% 1,000 ML IV SCH (16:19)
[2024-11-15 17:11] LABS: CALCIUM LEVEL 8.2 MG/DL (8.5-10.1); CREATININE FOR GFR 6.81 MG/DL (0.55-1.30); GLOMERULAR FILTRATION RATE 6.6 (>51); POTASSIUM SERUM 6.7 MMOL/L (3.5-5.1)
[2024-11-15] MEDS: INSULIN LISPRO (NovoLOG) PER UNIT SC SCH ×2 (17:30→21:00)
[2024-11-15 21:19] LABS: ALBUMIN 3.2 G/DL (3.2-5.2); BILIRUBIN,TOTAL 0.2 MG/DL (0.3-1.2); CALCIUM LEVEL 8.5 MG/DL (8.5-10.1); CREATININE FOR GFR 6.29 MG/DL (0.55-1.30); GLOMERULAR FILTRATION RATE 7.3 (>51); POTASSIUM SERUM 6.3 MMOL/L (3.5-5.1); TOTAL PROTEIN 6.8 G/DL (5.7-8.2)
[2024-11-15] MEDS: HEPARIN SOD (PORCINE) 5000UNITS/ML 1ML VIAL/SYRINGE SC SCH (22:00)
[2024-11-15] MEDS: GABAPENTIN 400MG CAP PO SCH (22:57)
[2024-11-15] MEDS: SERTRALINE 100 MG TAB PO SCH (22:57)
[2024-11-15] MEDS: GABAPENTIN 100 MG CAP PO SCH (22:58)
[2024-11-15] MEDS: ROSUVASTATIN 10 MG TAB (CRESTOR) PO SCH (22:58)
[2024-11-16] VITALS (12 sets, daily range): BP systolic 90–129; BP diastolic 54–74; TEMP 96.4–97.5; O2SAT 90–97
[2024-11-16] MEDS: MIDODRINE 5 MG TAB PO ONE (01:58)
[2024-11-16] MEDS: CALCIUM GLUCONATE 1,000 MG in DEXTROSE 5% (D5W) MINI-BAG PLU 100 ML IV ONE (02:03)
[2024-11-16] MEDS: DEXTROSE 50% 50ML SYRINGE IV STA (02:44)
[2024-11-16] MEDS: HumuLIN R (REGULAR) INSULIN (NovoLIN R) **100U/ML** PER UNIT IV STA (02:47)
[2024-11-16 04:57] LABS: CALCIUM LEVEL 8.9 MG/DL (8.5-10.1); CREATININE FOR GFR 6.06 MG/DL (0.55-1.30); GLOMERULAR FILTRATION RATE 7.6 (>51); POTASSIUM SERUM 5.8 MMOL/L (3.5-5.1)
[2024-11-16] MEDS: LEVOTHYROXINE 50MCG TABLET (0.05MG) PO SCH (06:40)
[2024-11-16 06:56] LABS: HEMATOCRIT 36.1 % (36.0-47.0); HEMOGLOBIN 11.8 g/dl (12.0-15.5); MEAN CORPUSCULAR HEMOGLOBIN 29.3 pg (27.0-33.0); MEAN CORPUSCULAR HGB CONC 32.7 g/dl (32.0-36.5); MEAN CORPUSCULAR VOLUME 89.6 fl (80.0-96.0); PLATELET COUNT, AUTOMATED 166 10^3/uL (150-450); RED BLOOD COUNT 4.03 10^6/uL (4.00-5.40); WHITE BLOOD COUNT 11.5 10^3/uL (4.0-10.0)
[2024-11-16 08:01] LABS: ALBUMIN 2.9 G/DL (3.2-5.2); BILIRUBIN,TOTAL 0.2 MG/DL (0.3-1.2); CALCIUM LEVEL 8.5 MG/DL (8.5-10.1); CREATININE FOR GFR 5.88 MG/DL (0.55-1.30); GLOMERULAR FILTRATION RATE 7.9 (>51); POTASSIUM SERUM 5.7 MMOL/L (3.5-5.1)
[2024-11-16] MEDS: NS (Normal Saline) 0.9% 1,000 ML IV ONE (08:12)
[2024-11-16] MEDS: ASPIRIN 81MG ENTERIC TABLET PO SCH (08:16)
[2024-11-16] MEDS: PATIROMER SORBITEX CALCIUM 8.4 GM POWDER PACKET (VELTASSA) PO ONE (15:59)
[2024-11-16] MEDS: LORazepam 2 MG/ML 1ML VIAL IV STA (22:36)
[2024-11-17] VITALS (19 sets, daily range): BP systolic 98–126; BP diastolic 54–69; TEMP 97.4–98; O2SAT 87–96
[2024-11-17 06:53] LABS: HEMATOCRIT 33.9 % (36.0-47.0); HEMOGLOBIN 10.8 g/dl (12.0-15.5); MEAN CORPUSCULAR HEMOGLOBIN 28.6 pg (27.0-33.0); MEAN CORPUSCULAR HGB CONC 31.9 g/dl (32.0-36.5); MEAN CORPUSCULAR VOLUME 89.9 fl (80.0-96.0); PLATELET COUNT, AUTOMATED 147 10^3/uL (150-450); RED BLOOD COUNT 3.77 10^6/uL (4.00-5.40); WHITE BLOOD COUNT 10.5 10^3/uL (4.0-10.0)
[2024-11-17 07:26] LABS: ALBUMIN 2.7 G/DL (3.2-5.2); BILIRUBIN,TOTAL 0.3 MG/DL (0.3-1.2); CALCIUM LEVEL 8.3 MG/DL (8.5-10.1); CREATININE FOR GFR 3.46 MG/DL (0.55-1.30); GLOMERULAR FILTRATION RATE 14.5 (>51); POTASSIUM SERUM 4.9 MMOL/L (3.5-5.1); TOTAL PROTEIN 5.7 G/DL (5.7-8.2)
[2024-11-17] MEDS: LORazepam 1 MG TAB PO ONE (21:56)
[2024-11-18] VITALS (12 sets, daily range): BP systolic 122–128; BP diastolic 80–84; TEMP 97.5–98; O2SAT 91–96
[2024-11-18 05:21] LABS: HEMATOCRIT 33.9 % (36.0-47.0); HEMOGLOBIN 10.7 g/dl (12.0-15.5); MEAN CORPUSCULAR HEMOGLOBIN 28.5 pg (27.0-33.0); MEAN CORPUSCULAR HGB CONC 31.6 g/dl (32.0-36.5); MEAN CORPUSCULAR VOLUME 90.4 fl (80.0-96.0); PLATELET COUNT, AUTOMATED 140 10^3/uL (150-450); RED BLOOD COUNT 3.75 10^6/uL (4.00-5.40); WHITE BLOOD COUNT 9.9 10^3/uL (4.0-10.0)
[2024-11-18 05:44] LABS: ALBUMIN 2.7 G/DL (3.2-5.2); BILIRUBIN,TOTAL 0.3 MG/DL (0.3-1.2); CALCIUM LEVEL 8.3 MG/DL (8.5-10.1); CREATININE FOR GFR 2.4 MG/DL (0.55-1.30); GLOMERULAR FILTRATION RATE 22.2 (>51); MAGNESIUM LEVEL 1.3 MG/DL (1.8-2.4); PERCENT SATURATION 23.5 % (13.2-45.0); POTASSIUM SERUM 4.4 MMOL/L (3.5-5.1); TOTAL PROTEIN 5.7 G/DL (5.7-8.2)
[2024-11-18] MEDS: MAGNESIUM OXIDE 400MG TAB (MAG-OX) PO SCH (08:12)
[2024-11-18] MEDS: MAG SULF 1GM/100ML (MAG RUN) 1 GM in IV 1 EA IV SCH (08:17)
[2024-11-18] MEDS ORDERED: MAGN400T2 PO (09:42)
== END 2024-11-18 11:02 | disposition home or self-care (01) | DRG 683 ==
LOC: M ED 10:57 → M ED INP 14:34 → M PCU 11-16 12:33
PROVIDERS: ADMIT Internal Medicine; ATTEND Internal Medicine
DX: N17.9 Acute kidney failure, unspecified (principal); E87.20 Acidosis, unspecified; N18.30 Chronic kidney disease, stage 3 unspecified; I12.9 Hypertensive chronic kidney disease with stage 1 through stage 4 chronic kidney disease, or unspecified chronic kidney disease; E11.9 Type 2 diabetes mellitus without complications; M06.9 Rheumatoid arthritis, unspecified; J45.909 Unspecified asthma, uncomplicated; K21.9 Gastro-esophageal reflux disease without esophagitis; D63.1 Anemia in chronic kidney disease; E21.3 Hyperparathyroidism, unspecified; E86.0 Dehydration; E87.5 Hyperkalemia; R91.8 Other nonspecific abnormal finding of lung field; I95.9 Hypotension, unspecified; M10.9 Gout, unspecified; Z98.41 Cataract extraction status, right eye; Z98.42 Cataract extraction status, left eye; Z90.79 Acquired absence of other genital organ(s); K29.70 Gastritis, unspecified, without bleeding; F17.200 Nicotine dependence, unspecified, uncomplicated; Z79.82 Long term (current) use of aspirin; Z79.890 Hormone replacement therapy; Z79.899 Other long term (current) drug therapy; Z88.1 Allergy status to other antibiotic agents; Z88.2 Allergy status to sulfonamides; Z91.048 Other nonmedicinal substance allergy status; Z88.8 Allergy status to other drugs, medicaments and biological substances

== ENCOUNTER → 2024-12-27 | Outpatient (REF) | payer OTHER ==
[~2024-12-27] MED LIST changes: +ASPI81TA26 PO; +ROSU40TA81 PO
[2024-12-27 17:49] LABS: TOTAL PROTEIN,RANDOM URINE 239.1 MG/DL (0.0-14.0)
== END ==
LOC: M LAB REF 16:45
PROVIDERS: ATTEND Nurse Practitioner Family
DX: R80.9 Proteinuria, unspecified (principal)

== ENCOUNTER → 2025-04-25 | Outpatient (REF) | payer OTHER ==
[~2025-04-25] MED LIST changes: -BYDU2INJ7 SC; +DICL100G10 TOP; -DRON5CAP13 PO; +DRON5CAP19 PO; +EXEN2AUT SC; +HYDR-3363 PO; +HYDR-3713 PO; +LORA-930 PO
[2025-04-26 17:55] LABS: TOTAL PROTEIN,RANDOM URINE 142.0 MG/DL (0.0-14.0)
== END ==
LOC: M LAB REF 16:56
PROVIDERS: ATTEND Nurse Practitioner Family
DX: R80.9 Proteinuria, unspecified (principal)

== ENCOUNTER → 2025-04-27 | Outpatient (CLI) | payer OTHER | LOC: M SOG 06:53 | PROVIDERS: ATTEND Physician Assistant | DX: M25.532 Pain in left wrist (principal); Z53.9 Procedure and treatment not carried out, unspecified reason ==

== ENCOUNTER → 2025-05-03 | Outpatient (CLI) | payer OTHER ==
[~2025-05-03] MED LIST changes: +METHACHOLINE KIT (6 VIAL.NEB PREMIX) INH ONE
== END ==
LOC: M RAD 09:00
PROVIDERS: ATTEND Physician Assistant
DX: R91.8 Other nonspecific abnormal finding of lung field (principal); J84.10 Pulmonary fibrosis, unspecified; I25.10 Atherosclerotic heart disease of native coronary artery without angina pectoris; R59.0 Localized enlarged lymph nodes
CPT/HCPCS: 71250; 94070; 95070; J7674

== ENCOUNTER → 2025-05-08 | Outpatient (CLI) | payer OTHER ==
[~2025-05-08] MED LIST changes: -METHACHOLINE KIT (6 VIAL.NEB PREMIX) INH ONE
== END ==
LOC: M SOG 06:50
PROVIDERS: ATTEND Physician Assistant
DX: M25.532 Pain in left wrist (principal)

== ENCOUNTER 2025-05-10 10:32 | Outpatient (RCR) | payer OTHER | END 2025-05-27 | LOC: M PT 10:32 | PROVIDERS: ATTEND Physician Assistant | DX: M17.12 Unilateral primary osteoarthritis, left knee (principal) ==

== ENCOUNTER → 2025-05-18 | Outpatient (CLI) | payer OTHER | LOC: M RAD 07:19 | PROVIDERS: ATTEND Orthopaedic Surgery Hand Surgery | DX: M25.532 Pain in left wrist (principal) ==

== ENCOUNTER → 2025-06-01 | Outpatient (CLI) | payer OTHER | LOC: M SOG 13:20 | PROVIDERS: ATTEND Orthopaedic Surgery Hand Surgery | DX: M25.532 Pain in left wrist (principal); M79.89 Other specified soft tissue disorders ==

== ENCOUNTER → 2025-06-05 | Outpatient (REF) | payer OTHER ==
[2025-06-05 15:43] LABS: C REACTIVE PROTEIN QUANTITATIV 3.31 MG/DL (<1.0)
[2025-06-05 15:50] LABS: BASO # 0.1 10^3/uL (0.0-0.2); BASO % 0.4 % (0.0-1.0); EOS # 0.3 10^3/uL (0.0-0.5); EOS % 2.0 % (0.0-3.0); HEPATITIS B SURFACE ANTIBODY NEGATIVE (POSITIVE); LYMPH # 3.1 10^3/uL (1.5-5.0); LYMPH % 24.2 % (24.0-44.0); MONO # 0.9 10^3/uL (0.0-0.8); MONO % 6.9 % (2.0-8.0); NEUTROPHILS # 8.6 10^3/uL (1.5-8.5); NEUTROPHILS % 66.0 % (36.0-66.0); PLATELET COUNT, AUTOMATED 356 10^3/uL (150-450)
[2025-06-05 16:01] LABS: ERYTHROCYTE SEDIMENTATION RATE > 130 mm/hr (0-30)
[2025-06-05 16:24] LABS: HEPATITIS C VIRUS ABY INDEX < 0.02 INDEX (<0.8)
[2025-06-05 16:29] LABS: ALT/SGPT 11 U/L (7.0-40); AST/SGOT 18 U/L (<34); CALCIUM LEVEL 9.5 MG/DL (8.5-10.1); CARBON DIOXIDE LEVEL 33 MMOL/L (20-31); CHLORIDE LEVEL 102 MMOL/L (98-107); CREATININE FOR GFR 1.58 MG/DL (0.55-1.30); GLOMERULAR FILTRATION RATE 37.7 (>51); POTASSIUM SERUM 4.6 MMOL/L (3.5-5.1); SODIUM LEVEL 146 MMOL/L (136-145); TOTAL 25(OH) VITAMIN D 19.7 NG/ML (20.0-100.0)
== END ==
LOC: M SFHCRHEU 11:51
PROVIDERS: ATTEND Internal Medicine
DX: M46.80 Other specified inflammatory spondylopathies, site unspecified (principal); Z11.59 Encounter for screening for other viral diseases; R53.83 Other fatigue

== ENCOUNTER → 2025-07-26 | Outpatient (REF) | payer OTHER ==
[2025-07-26 18:24] LABS: FREE T4 1.21 NG/DL (0.89-1.76)
== END ==
LOC: M LAB REF 17:33
PROVIDERS: ATTEND Nurse Practitioner Family
DX: E03.9 Hypothyroidism, unspecified (principal)

== ENCOUNTER → 2025-09-13 | Outpatient (REF) | payer OTHER ==
[~2025-09-13] MED LIST changes: +AMLO25TA PO; +ERGO125013 PO; +FLUTISP INH; +POTA-151 PO
[2025-09-19 02:06] LABS: UR HYDROCODONE Negative (.); UR HYDROMORPHONE Negative (.)
== END ==
LOC: M LAB REF 17:03
PROVIDERS: ATTEND Nurse Practitioner Family
DX: Z79.891 Long term (current) use of opiate analgesic (principal)